=== PATIENT | female | born 1945 | race Caucasian/White ===

== ENCOUNTER → 2017-06-05 | Outpatient (CLI) | payer OTHER ==
[~2017-06-05] MED LIST: CALC500T83 PO; CHOL100027 PO; CYAN500T PO; DILT-121 PO; FSMD/70 PO; GLC500 PO; HYDR5TAB PO; HYDR5TAB57 PO; MULT-506 PO; PANT40TA PO; ROSU5TAB PO; SPIR25TA PO; SYN150 PO
== END | disposition home or self-care (01) ==
LOC: C.RDSM 13:18
PROVIDERS: ATTEND Physical Medicine & Rehabilitation Sports Medicine
DX: Z96.649 Presence of unspecified artificial hip joint (principal)

== ENCOUNTER → 2017-06-08 | Outpatient (CLI) | payer OTHER ==
[2017-06-13 15:49] LABS: ISOSPORA+CYCLOSPORA NOT DETECTED (NOT DETECTED); O&P SOURCE OTHER-STOOL
[2017-06-15 02:17] LABS: REFERENCE QUEST TEST REPORT
== END | disposition home or self-care (01) ==
LOC: C.LAB 20:13
PROVIDERS: ATTEND Family Medicine
DX: R19.7 Diarrhea, unspecified (principal)

== ENCOUNTER → 2017-06-28 | Outpatient (CLI) | payer OTHER ==
[2017-07-03 11:32] LABS: IGA SERUM 115 mg/dL (81-463); TIS TRANS IGA 1 U/mL (<4)
== END | disposition home or self-care (01) ==
LOC: C.LAB1850 12:38
PROVIDERS: ATTEND Internal Medicine
DX: K52.9 Noninfective gastroenteritis and colitis, unspecified (principal)

== ENCOUNTER → 2017-06-29 | Outpatient (CLI) | payer OTHER ==
[2017-06-29 12:27] LABS: BLOOD UREA NITROGEN 12 mg/dl (7-18); BUN/CREATININE RATIO 17.6 (10-20); CALCIUM 9.8 mg/dl (8.5-10.1); CARBON DIOXIDE 27 mmol/L (21-32); CHLORIDE 104 mmol/L (98-107); CHOLESTEROL 157 mg/dl (0-200); CREATININE 0.66 mg/dl (0.60-1.20); GLUCOSE 95 mg/dl (70-99); SODIUM 137 mmol/L (136-145)
[2017-06-29 12:38] LABS: PROLACTIN 7.08 ng/mL
[2017-06-29 12:39] LABS: ESTIMATED AVERAGE GLUCOSE 123 mg/dl; HA1C FLAG Normal (Normal)
[2017-06-29 12:42] LABS: ALB/GLOB RATIO 1.3 (0.9-2); ALKALINE PHOSPHATASE 57 U/L (45-117); ALT/SGPT 25 U/L (12-78); AST/SGOT 15 U/L (15-37); CHOLESTEROL/HDL RATIO 3.4; HDL CHOLESTEROL 46 mg/dl; LDL CHOLESTEROL CALCULATED 84 mg/dl; THYROID STIMULATING HORMONE 0.005 uIu/ml (0.300-4.500); TRIGLYCERIDES 137 mg/dl (0-150); VERY LOW DENSITY LIPOPROT CALC 27 mg/dl
[2017-07-03 18:22] LABS: HUMAN GROWTH HORMONE <0.1 ng/mL (<=7.1); INSULIN LIKE GROWTH FACTOR-I 108 ng/mL (34-245)
== END | disposition home or self-care (01) ==
LOC: C.LAB1850 10:13
PROVIDERS: ATTEND Internal Medicine Endocrinology, Diabetes & Metabolism
DX: Z68.39 Body mass index [BMI] 39.0-39.9, adult (principal); E23.0 Hypopituitarism; E55.9 Vitamin D deficiency, unspecified; E11.9 Type 2 diabetes mellitus without complications; K52.9 Noninfective gastroenteritis and colitis, unspecified

== ENCOUNTER → 2017-07-02 | Outpatient (CLI) | payer OTHER | END | disposition home or self-care (01) | LOC: C.LAB1850 15:17 | PROVIDERS: ATTEND Obstetrics & Gynecology | DX: L65.9 Nonscarring hair loss, unspecified (principal); Z12.4 Encounter for screening for malignant neoplasm of cervix ==

== ENCOUNTER → 2017-07-02 | Outpatient (CLI) | payer OTHER | END | disposition home or self-care (01) | LOC: C.PAPS 09:57 | PROVIDERS: ATTEND Obstetrics & Gynecology | DX: Z12.4 Encounter for screening for malignant neoplasm of cervix (principal) ==

== ENCOUNTER → 2017-07-27 | Outpatient (CLI) | payer OTHER ==
[2017-07-27 09:56] LABS: CREATININE 0.68 mg/dl (0.60-1.20)
== END | disposition home or self-care (01) ==
LOC: C.LAB1850 07:40
PROVIDERS: ATTEND Obstetrics & Gynecology
DX: N64.4 Mastodynia (principal)

== ENCOUNTER → 2017-07-30 | Outpatient (CLI) | payer OTHER ==
[~2017-07-30] MED LIST changes: +GADAVIST IV PRN
--- NOTE | 2017-07-30 11:38 | DIAGNOSTIC IMAGING REPORT ---
MRI OF THE PELVIS COMBO CLINICAL HISTORY: Breast tenderness. Assess ovaries. 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 Intermittent right pelvic pain. Hair loss. COMPARISON STUDY: Pelvic ultrasound from an outside institution dated 07/09/2017. TECHNIQUE: MRI of the pelvis is performed using various T1 and T2-weighted sequences in the axial, sagittal, and coronal planes. Contrast-enhanced sequences are acquired following the IV administration of 8 cc of Gadavist. The examination is degraded by susceptibility artifact from bilateral hip arthroplasties. FINDINGS: The uterus is atrophic and heterogeneous in signal intensity. The uterus measures 5.2 cm in length. The endometrium measures 2 to 3 mm in thickness. The bladder is partially decompressed and normal as imaged. The right ovary is atrophic and seen on axial T2 image #6. The right ovary measures 1.6 x 2.7 cm in axial diameter. A simple appearing cystic focus in the right ovary measures 1.4 cm. The left ovary is likely located along the left iliac vessels but is not definitively visualized, obscured by adjacent bowel loops. No enhancing mass lesion is identified in the pelvis. There is no free fluid in the cul-de-sac. The visualized bowel loops are normal in caliber. Colonic diverticulosis is observed. Bursal fluid is noted in the left iliopsoas region, likely related to the left hip arthroplasty. Benign-appearing cystic structure are seen in the presacral region bilaterally, left larger than right. The lesion on the left measures up to 4.8 cm. There is no associated enhancement on the postcontrast images. No pelvic sidewall or inguinal lymphadenopathy is seen. The regional musculature is atrophic. The origin of the hamstrings tendons are intact. IMPRESSION: 1. The right ovary is atrophic and contains a 1.4 cm benign-appearing cystic focus. 2. The left ovary is not clearly identified. This is likely located along the left iliac vessels but is obscured by adjacent bowel loops. The left ovary is not enlarged. 3. No enhancing pelvic mass lesion is seen. 4. Large perineural cysts are incidentally noted in the presacral region. 5. Colonic diverticulosis without MRI evidence of acute diverticulitis. Electronically signed by: Blaine Hutchins M.D. 07/30/2017 11:36 AM Dictated Date/Time: 07/30/2017 11:19 AM
== END | disposition home or self-care (01) ==
LOC: C.MRI 09:27
PROVIDERS: ATTEND Obstetrics & Gynecology
DX: N64.4 Mastodynia (principal); N83.311 Acquired atrophy of right ovary; K57.30 Diverticulosis of large intestine without perforation or abscess without bleeding; R93.5 Abnormal findings on diagnostic imaging of other abdominal regions, including retroperitoneum

== ENCOUNTER → 2017-07-31 | Outpatient (CLI) | payer OTHER ==
[~2017-07-31] MED LIST changes: -GADAVIST IV PRN
--- NOTE | 2017-07-31 15:45 | MAMMOGRAPHY REPORT ---
BILATERAL DIGITAL SCREENING MAMMOGRAM WITH CAD: 07/31/2017 CLINICAL HISTORY: Routine screening. TECHNIQUE: Bilateral CC and MLO views were obtained. Current study was also evaluated with a Compute r Aided Detection (CAD) system. COMPARISON: Comparison is made to exams dated: 11/04/2014 mammogram, 11/03/2013 mammogram, 10/29/2012 ma mmogram, 10/13/2011 mammogram, 10/12/2010 mammogram, and 10/11/2009 mammogram - [facility]. BREAST COMPOSITION: There are scattered areas of fibroglandular density in both breasts. FINDINGS: There are minimal vascular calcifications in the breasts. A benign rim calcification in t he left breast and a few punctate microcalcifications bilaterally. No suspicious mass, architectural distortion or cluster of suspicious microcalcifications is seen. IMPRESSION: ACR BI-RADS CATEGORY 1: NEGATIVE There is no mammographic evidence of malignancy. A 1 year screening mammogram is recommended. The pa tient will receive written notification of the results. Approximately 10% of breast cancers are not detected with mammography. A negative mammographic report should not delay biopsy if a clinically suggestive mass is present. Inez Christiansen M.D. ay/:07/31/2017 15:13:50 Pot Room Supervisor: Lora Simon RT(R)(M), [facility] letter sent: Normal 1/2 BI-RADS Code: ACR BI-RADS Category 1: Negative
== END | disposition home or self-care (01) ==
LOC: C.MAMM 14:54
PROVIDERS: ATTEND Obstetrics & Gynecology
DX: Z12.31 Encounter for screening mammogram for malignant neoplasm of breast (principal)

== ENCOUNTER 2019-02-05 11:01 | Inpatient (IN) ==
[2019-02-05 12:04] LABS: Hematocrit (blood only) 42.4 % (37-47); Hemoglobin 15.3 g/dL (12.0-16.0); Mean Corpuscular Hgb Conc 36.1 g/dL (32-36); Mean Corpuscular Volume 92.6 fL (80-100); Mean Platelet Volume 10.3 fL (7.4-10.4); Platelet Count 287 K/uL (130-400); RDW Coefficient of Variation 12.4 % (11.5-14.5); Red Blood Count 4.58 M/uL (4.2-5.4); White Blood Count 6.54 K/uL (4.8-10.8)
--- NOTE | 2019-02-05 12:22 | XRay Report ---
XR chest 1V portable CLINICAL HISTORY: Neuro symptoms COMPARISON STUDY: Chest radiograph January 31, 2019. FINDINGS: Lung volumes are normal. No pneumothorax or pleural effusion is noted. There is no consolid ation or evidence for pulmonary edema. Cardiac size is normal. Mediastinal contours are normal. IMPRESSION: No acute cardiopulmonary findings. Electronically signed by: Rob Kraus M.D. 02/05/2019 12:21 PM
[2019-02-05 12:25] LABS: Albumin Level 4.3 gm/dl (3.4-5.0); BUN Creatinine Ratio 12.8 (10-20); Calcium 10.1 mg/dl (8.5-10.1); Creatinine Clr Calc Pharmacy 81.6 ml/min; Est GFR (African American) 100.3; Est GFR (Non-African American) 86.6; Magnesium 1.9 mg/dl (1.8-2.4); Potassium 4.1 mmol/L (3.5-5.1)
[2019-02-05 12:26] LABS: Partial Thromboplastin Ratio 0.8; Partial Thromboplastin Time 22.4 Seconds (21.0-31.0); Prothrombin Time 9.9 Seconds (9.0-12.0)
[2019-02-05 12:27] LABS: iSTAT Creatinine 0.6 mg/dl (0.6-1.3); iSTAT Hemoglobin 14.6 g/dl (12.0-16.0); iSTAT Ionized Calcium 1.24 mmol/l (1.12-1.32); iSTAT Potassium 4.3 mEq/L (3.3-5.0)
[2019-02-05 12:28] LABS: Albumin Globulin Ratio 1.3 (0.9-2); Bilirubin,Total 0.7 mg/dl (0.2-1); Globulin 3.2 gm/dl (2.5-4.0); Total Protein 7.5 gm/dl (6.4-8.2)
[2019-02-05] MEDS ORDERED: OPTIRAY 320 125ml IV PRN (12:42)
--- NOTE | 2019-02-05 12:49 | CT Scan Report ---
CT OF THE HEAD WITHOUT CONTRAST CLINICAL HISTORY: Neuro symptoms [slurred speech. Right-sided weakness. COMPARISON STUDY: No previous studies for comparison. TECHNIQUE: Helical axial images of the head were obtained without IV contrast. Automated exposure con trol was utilized for the study. A dose lowering technique was utilized adhering to the principles o f ALARA. FINDINGS: No acute intracranial hemorrhage, midline shift or mass effect is present. Ventricular syst em is normal. The basilar cisterns are patent. There are no extra-axial collections. Becerra-white diffe rentiation is maintained. There are no findings to suggest acute dural sinus thrombosis or acute terr itorial infarct. There are no significant calvarial abnormalities. IMPRESSION: No acute intracranial findings. Electronically signed by: Rob Kraus M.D. 02/05/2019 12:48 PM
--- NOTE | 2019-02-05 12:53 | CT Scan Report ---
CT ANGIOGRAPHY OF THE NECK WITH CONTRAST CLINICAL HISTORY: Right-sided weakness. Slurred speech. COMPARISON STUDY: No previous studies for comparison. Technique: CT angiography of the carotid and vertebral arteries was obtained using Mobile Armor 320 IV and 3D reconstruction on an independent workstation. NASCET criteria was utilized. Automated exposure c ontrol was utilized for the study. A dose lowering technique was utilized adhering to the principles of ALARA. Findings: Please note that the CTA of the head will be reported separately. There is no cervical lymp hadenopathy. Lung apices are clear. No cervical spine fracture is noted. The bilateral common carotid , cervical internal carotid and vertebral arteries are patent. There is no dissection or stenosis. Th ere is no aneurysm within the neck. IMPRESSION: Unremarkable CTA of the neck. No dissection or stenosis. Electronically signed by: Rob Kraus M.D. 02/05/2019 12:52 PM
[2019-02-05 12:57] LABS: Troponin I < 0.015 ng/ml (0-0.045)
--- NOTE | 2019-02-05 13:00 | CT Scan Report ---
CT angio head w con CLINICAL HISTORY: Right-sided weakness. Slurred speech. Possible acute stroke. TECHNIQUE: CT angiography of the head was performed in a dynamic helical fashion during intravenous a dministration of 120 cc of Optiray 320. MIP imaging was performed. A dose lowering technique was util ized adhering to the principles of ALARA. CT DOSE: 1137.04 mGy.cm COMPARISON STUDY: No previous studies for comparison. FINDINGS: There is no evidence for major intracranial branch occlusion. There is no evidence for katie r intracranial stenosis. There is a 6 mm distal right MCA aneurysm, at the level of the sylvian fissu re. The dural venous sinuses appear patent. IMPRESSION: 1. 6 mm distal right MCA aneurysm at the level of the sylvian fissure Electronically signed by: Phillip Ospina M.D. 02/05/2019 12:59 PM
[2019-02-05 13:14] LABS: T4 Free Thyroxine 1.52 ng/dl (0.8-1.6)
[2019-02-05] MEDS ORDERED: DEXTROSE 50% 50 ML SYRINGE IV PRN (15:54)
[2019-02-05] MEDS ORDERED: GLUCOSE 40% GEL 15 GM TUBE PO PRN (15:54)
[2019-02-05] MEDS ORDERED: PHARMACIST DISCHARGE MED REC CONSULT PRN (15:54)
[2019-02-05] MEDS ORDERED: CARBOHYDRATES FOR HYPOGLYCEMIA PO PRN (15:54)
[2019-02-05] MEDS ORDERED: ONDANSETRON INJ 2 MG/ML 2 ML VIAL IV PRN (15:54)
[2019-02-05] MEDS ORDERED: GLUCAGON FOR INJ 1 MG VIAL SQ PRN (15:54)
[2019-02-05] MEDS ORDERED: GLUCOSE 10 TABS/TUBE PO PRN (15:54)
[2019-02-05] MEDS ORDERED: INSULIN ASPART 100 UNITS/ML 3 ML PEN SC SCH (16:30)
[2019-02-05] MEDS ORDERED: Nursing to Pharmacy Communication ONE (16:52)
--- NOTE | 2019-02-05 18:09 | Magnetic Resonance Report ---
MR brain wo con HISTORY: Mental status change Stroke TECHNIQUE: Multiplanar multisequence MRI of the brain was performed without the use of contrast. COMPARISON STUDY: None. FINDINGS: Small focus of increased signal involving the left yarelis. Appears represent a subacute infar ct. Findings of moderate cerebellar as well as cerebral atrophy. Moderate chronic small vessel changes th roughout. 6 mm aneurysm base of the right sylvian fissure involving the right middle cerebral arteria l distribution. Ventricular system is midline. No midline shift. IMPRESSION: 1. Acute/subacute infarct left yarelis. 2. Age-related chronic small vessel change. 3. 6 mm aneurysm right middle cerebral arterial distribution base of of the sylvian fissure. The above report was generated using voice recognition software. It may contain grammatical, syntax or spelling errors. Electronically signed by: Duran Medrano M.D. 02/05/2019 6:06 PM
[2019-02-05] MEDS: HYDROCORTISONE 10 MG TAB PO SCH (18:20)
[2019-02-05] MEDS: CLOPIDOGREL BISULFATE 75 MG TAB PO SCH (18:20)
[2019-02-05] MEDS: ASPIRIN 81 MG CHEW PO SCH (18:20)
[2019-02-05] MEDS: INSULIN ASPART 100 UNITS/ML 3 ML PEN SC SCH ×2 (18:30→23:39)
--- NOTE | 2019-02-05 18:41 | History & Physical Report ---
Date of Service February 05, 2019 Assessment & Plan (1) CVA (cerebral vascular accident): MRI brain on 02/05 showed acute/subacute left yarelis CVA. No prior strokes. - Neurology consult - Echo - Tele - ASA/Plavix & statin - Lipid panel and A1c in the AM - PT/OT/MAPPING ANALYST - NPO until seen by speech given her dysarthria - Permissive hypertension (2) Chest pressure: Reports chest pressure since this morning. EKG shows septal infarct pattern, but this appears stable from 01/31/2019. First troponin negative. In 05/2009, she had a heart cath in the setting of ST elevations that was clean. It was thought it might be a vasospasm event. Reports STEMI in the setting of a prior dobutamine stress test. - Trend troponins and EKGs - Continue telemetry (3) Brain aneurysm: CTA head on 02/05 showed 6 mm distal right MCA aneurysm at the level of the sylvian fissure. No indication on any imaging that this had any rupture or bleeding. - Neurology consult - May need eventual neurosurgery evaluation (4) Adrenal insufficiency: Prior pituitary surgery in 1984 due to pituitary tumor. Follows with endocrinology as outpatient. - Continue hydrocortisone 10mg PO BID (5) Hypothyroid: Due to pitiutary insufficiency. TSH is (as expected) undetectable. FT4/FT3 are 1.5 & 3.1 respectively which is within normal limits. - Continue levothyroxine 150 mcg PO daily (6) Diabetes: A1c was 6.4% in 07/2018. Only on metformin as an outpatient. - Sliding scale insulin - A1c in the AM (7) Hypertension: On diltiazem and spironolactone as outpatient. Spironolactone may be for some of her Na+/K+ regulation, but she is not sure. - Odd HTN regimen given neither of these is first-line HTN therapy. - Will allow permissive HTN in the first 24-48 hour period per neurology - Adjust BP meds as needed (8) Hyperlipidemia: Only on rosuvastatin 5mg weekly. Would benefit from high-intensity statin therapy. 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 She noted difficulty walking on Sunday, and presented to the emergency department. She was diagnosed with low blood pressure secondary to missing her hydrocortisone for her hypopituitarism. She was discharged on Sunday, and the symptoms resolved. However this morning at 8 AM, she noted that she was having difficulty speaking, discoordination of her right upper extremity, and again having difficulty walking due to RLE weakness. She presented to the emergency department, but was outside of the TPA window. At present she continues to endorse dysarthria, but no dysphasia. No facial droop. Discoordination and weakness of the right upper extremity, and RLE. She also notes a slight chest pressure that has been ongoing since this morning. Reports it is like a "small child" is sitting on her chest. No fevers, chills, sweats, shortness of breath, abdominal pain, nausea, vomiting, or other symptoms. Allergies Allergy/AdvReac Type Severity Reaction Status Date / Time Sulfa (Sulfonamide Allergy Unknown RASH Verified 02/05/19 12:28 Antibiotics) dobutamine AdvReac Severe ST Verified 02/05/19 12:28 ELEVATION, CHEST PAIN Home Medications Home Medications Medication Instructions Recorded Confirmed Type alendronate 70 mg PO WK 01/31/19 02/05/19 History diltiazem HCl [Tiazac] 300 mg PO DAILY 01/31/19 02/05/19 History hydrocortisone 10 mg PO BID 01/31/19 02/05/19 History levothyroxine [Synthroid] 150 mcg PO DAILY 01/31/19 02/05/19 History metformin 1,000 mg PO BID 01/31/19 02/05/19 History pantoprazole 40 mg PO DAILY 01/31/19 02/05/19 History rosuvastatin 5 mg PO WK 01/31/19 02/05/19 History spironolactone 25 mg PO QPM 01/31/19 02/05/19 History spironolactone 50 mg PO QAM 01/31/19 02/05/19 History Past Med/Surg History Medical History Adrenal insufficiency CVA (cerebral vascular accident) Diabetes Hyperlipidemia Hypertension Hypothyroid No significant past medical history Surgical History History of hypophysectomy Family History Other Family history non-contributory Social History Preferred Language: Guyanese Communication Ability: Effective Hospice Fellow Required: No Beliefs That Will Affect Care: None marital status: Current Living Situation: Spouse current occupational status: retired Other Information That Helps Us Care for You: No Feels Safe at Home: Yes Safety Concerns: Feels Safe At This Time Smoking Status: Never smoker Do You Dip or Chew Tobacco: No Second Hand Exposure: No Tobacco Cessation Education Requested by Patient: No Hx Alcohol Use: No Hx Substance Use: No Review of Systems Const: Constitutional: no fever, no chills and no sweats Eyes: Eyes: no diplopia ENMT: Ear, Nose, Mouth, Throat: no ear trauma, no nasal discharge and no dental pain Resp: Respiratory: no cough, no chest congestion and no dyspnea Cardio: Cardiovascular: + chest pain and + chest pain at rest; no dyspnea, no dyspnea on exertion, no palpitations and no syncope GI: Gastrointestinal: no abdominal pain, no belching, no constipation, no diarrhea/loose stools, no blood in stools and no melena MS: Musculoskeletal: no back pain, no joint pain and no muscle weakness Integ: Integumentary: no rash, no skin ulcer and no erythema Neuro: Neurologic: + paralysis (Discoordination); no generalized weakness, no loss of sensation, no numbness and no paresthesia Psych: Psychiatric: no depression and no anxiety Endo: Endocrine: no fatigue, no polydipsia and no polyphagia Physical Exam Vital Signs (Past 24 Hours): Last Vital Signs Temp 36.4 C L 02/05/19 15:33 Pulse 46 L 02/05/19 15:33 Resp 18 02/05/19 15:33 BP 162/73 H 02/05/19 15:33 Pulse Ox 100 02/05/19 15:33 Constitutional: WD/WN, vitals as above Eyes: EOM intact bilaterally; no conjunctival abnormality ENMT: external ear and nose normal, oropharynx normal Neck: trachea midline, no thyromegaly normal visual inspection Respiratory: normal respiratory effort, lungs clear to auscultation no respiratory distress Cardiovascular: RRR, no murmur, no edema Gastrointestinal (Abdomen): Inspection/Auscultation: abdomen normal to inspection; abdomen not distended Musculoskeletal: no cyanosis or clubbing, extremities motor strength 5/5 Skin: no rashes, warm and dry Neurologic: moves all extremities, + focal motor deficit (Right arm and leg) and awake Psychiatric: Orientation: alert, oriented to person and cooperative
--- NOTE | 2019-02-05 20:09 | Emergency Department Note ---
Entered by Shawnee Lao acting as a scribe for History of Present Illness General Chief complaint: Neuro Symptoms/Deficit Stated complaint: WEAKNESS,CANT WALK, Source: patient History of Present Illness Onset (ago): week(s) 1 Location: head Pain Consistency: + other (worsening) Quality: + other (neuro symptoms) Relieved By: not by medication (steroids, Motrin) Associated symptoms: + denies other symptoms (pain, trauma), + weakness and + other (fatigue, slurred speech, difficulty walking); no fever/chills (fever) and no headaches The patient is a 74 year old female who presents to the Emergency Room with complaints of worsening neuro symptoms starting a week ago. 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 She reports that for a week she has had right sided weakness and fatigue. She states that she came here last week and had her steroids increased, but it didnt offer much relief. The patient states that she woke up 4 hours ago and her speech was slurred. She states that her weakness in her right arm and leg was worse than before and she found it difficult to walk. She notes that she took 2 Motrin before coming in with no relief. The patient denies headache, pain, fever, and trauma. Home Medications Home Medications Medication Instructions Recorded Confirmed Type alendronate 70 mg PO WK 01/31/19 02/05/19 History diltiazem HCl [Tiazac] 300 mg PO DAILY 01/31/19 02/05/19 History hydrocortisone 10 mg PO BID 01/31/19 02/05/19 History levothyroxine [Synthroid] 150 mcg PO DAILY 01/31/19 02/05/19 History metformin 1,000 mg PO BID 01/31/19 02/05/19 History pantoprazole 40 mg PO DAILY 01/31/19 02/05/19 History rosuvastatin 5 mg PO WK 01/31/19 02/05/19 History spironolactone 25 mg PO QPM 01/31/19 02/05/19 History spironolactone 50 mg PO QAM 01/31/19 02/05/19 History Allergies Allergy/AdvReac Type Severity Reaction Status Date / Time Sulfa (Sulfonamide Allergy Unknown RASH Verified 02/05/19 12:28 Antibiotics) dobutamine AdvReac Severe ST Verified 02/05/19 12:28 ELEVATION, CHEST PAIN Past Med/Surg History Medical History Adrenal insufficiency CVA (cerebral vascular accident) Diabetes Hyperlipidemia Hypertension Hypothyroid No significant past medical history Surgical History History of hypophysectomy Family History Other Family history non-contributory Social History Preferred Language: Urdu Communication Ability: Effective Infrastructure Manager Required: No Beliefs That Will Affect Care: None marital status: Current Living Situation: Spouse current occupational status: retired Other Information That Helps Us Care for You: No Feels Safe at Home: Yes Safety Concerns: Feels Safe At This Time Smoking Status: Never smoker Do You Dip or Chew Tobacco: No Second Hand Exposure: No Tobacco Cessation Education Requested by Patient: No Hx Alcohol Use: No Hx Substance Use: No Review of Systems See HPI for pertinent positives & negatives. and A total of 10 systems reviewed and were otherwise negative Physical Exam Vital Signs Vital Signs - 24 hr 02/05/19 11:07 02/05/19 11:39 02/05/19 12:03 Temperature 36.8 C Temperature Source Oral Sepsis Recent Fever Within 48 Hours No Sepsis New/Unexplained Change in Mental Status No Sepsis Action Taken by Nursing No Action Required Pulse Rate 75 65 Pulse Rate [Right Finger] Pulse Rate from SpO2 Sensor Respiratory Rate 16 24 Respiratory Effort / Characteristics Respiratory Depth Respiratory Pattern Blood Pressure 173/80 H Blood Pressure [Left Arm] Blood Pressure Mean 111 Blood Pressure Mean [Left Arm] Blood Pressure Position [Left Arm] Pulse Oximetry 97 98 96 Oxygen Delivery Method Room Air Room Air Room Air 02/05/19 12:38 02/05/19 12:39 02/05/19 13:00 Temperature Temperature Source Sepsis Recent Fever Within 48 Hours Sepsis New/Unexplained Change in Mental Status Sepsis Action Taken by Nursing Pulse Rate 60 56 L 52 L Pulse Rate [Right Finger] Pulse Rate from SpO2 Sensor 61 58 L 52 L Respiratory Rate 22 15 15 Respiratory Effort / Characteristics Respiratory Depth Respiratory Pattern Blood Pressure 144/75 H Blood Pressure [Left Arm] Blood Pressure Mean 98 Blood Pressure Mean [Left Arm] Blood Pressure Position [Left Arm] Pulse Oximetry 97 97 96 Oxygen Delivery Method Room Air Room Air Room Air 02/05/19 13:32 02/05/19 14:00 02/05/19 14:16 Temperature Temperature Source Sepsis Recent Fever Within 48 Hours Sepsis New/Unexplained Change in Mental Status Sepsis Action Taken by Nursing Pulse Rate 64 50 L 49 L Pulse Rate [Right Finger] Pulse Rate from SpO2 Sensor 62 50 L 49 L Respiratory Rate 18 18 19 Respiratory Effort / Characteristics Respiratory Depth Respiratory Pattern Blood Pressure 152/84 H 152/84 H Blood Pressure [Left Arm] Blood Pressure Mean 106 106 Blood Pressure Mean [Left Arm] Blood Pressure Position [Left Arm] Pulse Oximetry 95 96 95 Oxygen Delivery Method Room Air Room Air Room Air 02/05/19 14:30 02/05/19 14:31 02/05/19 15:33 Temperature 36.4 C L Temperature Source Oral Sepsis Recent Fever Within 48 Hours Sepsis New/Unexplained Change in Mental Status Sepsis Action Taken by Nursing Pulse Rate 43 L 44 L Pulse Rate [Right Finger] 46 L Pulse Rate from SpO2 Sensor 43 L 44 L Respiratory Rate 17 19 18 Respiratory Effort / Characteristics Non-Labored Spontaneous Respiratory Depth Normal Respiratory Pattern Regular Blood Pressure 141/79 H Blood Pressure [Left Arm] 162/73 H Blood Pressure Mean 99 Blood Pressure Mean [Left Arm] 102 Blood Pressure Position [Left Arm] Lying Pulse Oximetry 93 95 100 Oxygen Delivery Method Room Air Room Air Room Air 02/05/19 16:30 02/05/19 19:59 Temperature 36.4 C L Temperature Source Oral Sepsis Recent Fever Within 48 Hours Sepsis New/Unexplained Change in Mental Status Sepsis Action Taken by Nursing Pulse Rate 51 L Pulse Rate [Right Finger] 53 L Pulse Rate from SpO2 Sensor Respiratory Rate 18 Respiratory Effort / Characteristics Respiratory Depth Respiratory Pattern Blood Pressure Blood Pressure [Left Arm] 173/81 H Blood Pressure Mean Blood Pressure Mean [Left Arm] 111 Blood Pressure Position [Left Arm] Lying Pulse Oximetry 95 Oxygen Delivery Method Room Air GENERAL: Awake, alert, well-appearing, in no distress HENT: Normocephalic, atraumatic. Oropharynx unremarkable. EYES: Normal conjunctiva. Sclera non-icteric. PERRL. Extraocular motions intact. NECK: Supple. No nuchal rigidity. RESPIRATORY: Clear to auscultation. No wheezes. Normal respiratory effort. CARDIAC: Normal rate. Normal rhythm. Extremities warm and well perfused. GI: Soft, non-distended. No tenderness to palpation. RECTAL: Deferred. MUSCULOSKELETAL: Atraumatic. Chest examination reveals no tenderness. LOWER EXTREMITIES: Calves are equal size bilaterally and non-tender. No edema NEURO: No sensory noted. No facial droop. Slurring of speech. Subtle drift of the right lower extremity. SKIN: Warm and dry. No rash or jaundice noted. Course 1158: The patient was evaluated in room C11B, and a complete history and physical examination were performed. 1317: I reevaluated the patient and updated her on her test results. I discussed the treatment plan with her. She verbally agrees and understands. 1321: I reviewed the patient's case with Dr. Kimberly TILLEY Hospitalist. He will evaluate the patient for further management. Consultations Consultation #1: I reviewed the patient's case with Dr. Kibmerly TILLEY [facility] ist. He will evaluate the patient for further management. Time: 13:21 Administered Medications Aspirin (Aspirin Chew) 81 mg PO DAILY [facility] Stop: 03/07/19 16:14 Last Admin: 02/05/19 18:20 Dose: 81 mg Documented by: [id number] Clopidogrel Bisulfate (Plavix) 75 mg PO QAM [facility] Stop: 03/07/19 16:09 Last Admin: 02/05/19 18:20 Dose: 75 mg Documented by: [id number] Hydrocortisone (Cortef) 10 mg PO BID17 [facility] Stop: 03/07/19 16:59 Last Admin: 02/05/19 18:20 Dose: 10 mg Documented by: [id number] Insulin Aspart (Novolog Flexpen) 0 units SC Q6 [facility] Stop: 03/07/19 16:29 Last Admin: 02/05/19 18:30 Dose: Not Given Documented by: [id number] Cosigned by: [id number] Discontinued Medications Insulin Aspart (Novolog Flexpen) 0 units SC ACHS [facility] Stop: 03/07/19 16:29 Last Admin: 02/05/19 18:28 Dose: Not Given Documented by: [id number] Cosigned by: [id number] Ioversol (Optiray 320 125ml) 120 ml IV ONCE PRN PRN Reason: Interaction Checking Stop: 02/09/19 12:41 Last Admin: 02/05/19 12:43 Dose: 120 ml Documented by: [id number] Medical Decision Making Differential Diagnosis Differential includes acute coronary syndrome, myocardial infarction, CVA, TIA, anemia, infection, pneumonia, UTI, pyelonephritis, poor nutrition, dehydration, electrolyte disturbance,hypoglycemia. Medical Records Attestation: I reviewed the patient's medical records. Home Medications Current Medication List: was personally reviewed by me Laboratory Data Attestation: I reviewed the patient's lab results. Result diagrams: 02/05/19 11:49 02/05/19 11:49 Lab Results 02/05/19 02/05/19 02/05/19 Range/Units 11:49 11:49 11:49 WBC 6.54 (4.8-10.8) K/uL RBC 4.58 (4.2-5.4) M/uL Hgb 15.3 (12.0-16.0) g/dL POC Hgb (12.0-16.0) g/dl Hct 42.4 (37-47) % POC Hct (37-47) % MCV 92.6 (80-100) fL MCH 33.4 (25-34) pg MCHC 36.1 H (32-36) g/dL RDW Std Deviation 42.0 (36.4-46.3) fL RDW Coeff of Maureen 12.4 (11.5-14.5) % Plt Count 287 (130-400) K/uL MPV 10.3 (7.4-10.4) fL PT 9.9 (9.0-12.0) Seconds INR 1.0 (0.9-1.1) APTT 22.4 (21.0-31.0) Seconds PTT Ratio 0.8 POC Sodium (135-144) mEq/L Sodium 137 (136-145) mmol/L POC Potassium (3.3-5.0) mEq/L Potassium 4.1 (3.5-5.1) mmol/L POC Chloride (101-112) mEq/L Chloride 102 (98-107) mmol/L Carbon Dioxide 27 (21-32) mmol/L POC Total CO2 (24-31) mEq/l Anion Gap 8.0 (3-11) POC Anion Gap (16-25) mmol/L POC BUN (7-18) mg/dl BUN 9 (7-18) mg/dl Creatinine 0.70 (0.6-1.2) mg/dl POC Creatinine (0.6-1.3) mg/dl Est Cr Clr Drug Dosing 81.6 ml/min Est GFR ( Amer) 100.3 Est GFR (Non-Af Amer) 86.6 BUN/Creatinine Ratio 12.8 (10-20) Glucose 105 H (70-99) mg/dl POC Glucose (other) (70-99) mg/dl Calcium 10.1 (8.5-10.1) mg/dl POC Ioniz Calcium Caron (1.12-1.32) mmol/l Magnesium 1.9 (1.8-2.4) mg/dl Total Bilirubin 0.7 (0.2-1) mg/dl AST 15 (15-37) U/L ALT 32 (12-78) U/L Alkaline Phosphatase 72 (45-117) U/L Troponin I (0-0.045) ng/ml Total Protein 7.5 (6.4-8.2) gm/dl Albumin 4.3 (3.4-5.0) gm/dl Globulin 3.2 (2.5-4.0) gm/dl Albumin/Globulin Ratio 1.3 (0.9-2) TSH (0.300-4.500) uIu/ml Free T4 (0.8-1.6) ng/dl Free T3 (2.3-4.2) pg/ml 02/05/19 02/05/19 02/05/19 Range/Units 11:49 11:49 12:15 WBC (4.8-10.8) K/uL RBC (4.2-5.4) M/uL Hgb (12.0-16.0) g/dL POC Hgb 14.6 (12.0-16.0) g/dl Hct (37-47) % POC Hct 43 (37-47) % MCV (80-100) fL MCH (25-34) pg MCHC (32-36) g/dL RDW Std Deviation (36.4-46.3) fL RDW Coeff of Maureen (11.5-14.5) % Plt Count (130-400) K/uL MPV (7.4-10.4) fL PT (9.0-12.0) Seconds INR (0.9-1.1) APTT (21.0-31.0) Seconds PTT Ratio POC Sodium 138 (135-144) mEq/L Sodium (136-145) mmol/L POC Potassium 4.3 (3.3-5.0) mEq/L Potassium (3.5-5.1) mmol/L POC Chloride 100 L (101-112) mEq/L Chloride (98-107) mmol/L Carbon Dioxide (21-32) mmol/L POC Total CO2 26 (24-31) mEq/l Anion Gap (3-11) POC Anion Gap 17.0 (16-25) mmol/L POC BUN 8 (7-18) mg/dl BUN (7-18) mg/dl Creatinine (0.6-1.2) mg/dl POC Creatinine 0.6 (0.6-1.3) mg/dl Est Cr Clr Drug Dosing ml/min Est GFR ( Amer) Est GFR (Non-Af Amer) BUN/Creatinine Ratio (10-20) Glucose (70-99) mg/dl POC Glucose (other) 103 H (70-99) mg/dl Calcium (8.5-10.1) mg/dl POC Ioniz Calcium Caron 1.24 (1.12-1.32) mmol/l Magnesium (1.8-2.4) mg/dl Total Bilirubin (0.2-1) mg/dl AST (15-37) U/L ALT (12-78) U/L Alkaline Phosphatase (45-117) U/L Troponin I < 0.015 (0-0.045) ng/ml Total Protein (6.4-8.2) gm/dl Albumin (3.4-5.0) gm/dl Globulin (2.5-4.0) gm/dl Albumin/Globulin Ratio (0.9-2) TSH < 0.005 L Cancelled (0.300-4.500) uIu/ml Free T4 1.52 (0.8-1.6) ng/dl Free T3 (2.3-4.2) pg/ml 02/05/19 02/05/19 Range/Units 14:39 18:58 WBC (4.8-10.8) K/uL RBC (4.2-5.4) M/uL Hgb (12.0-16.0) g/dL POC Hgb (12.0-16.0) g/dl Hct (37-47) % POC Hct (37-47) % MCV (80-100) fL MCH (25-34) pg MCHC (32-36) g/dL RDW Std Deviation (36.4-46.3) fL RDW Coeff of Maureen (11.5-14.5) % Plt Count (130-400) K/uL MPV (7.4-10.4) fL PT (9.0-12.0) Seconds INR (0.9-1.1) APTT (21.0-31.0) Seconds PTT Ratio POC Sodium (135-144) mEq/L Sodium (136-145) mmol/L POC Potassium (3.3-5.0) mEq/L Potassium (3.5-5.1) mmol/L POC Chloride (101-112) mEq/L Chloride (98-107) mmol/L Carbon Dioxide (21-32) mmol/L POC Total CO2 (24-31) mEq/l Anion Gap (3-11) POC Anion Gap (16-25) mmol/L POC BUN (7-18) mg/dl BUN (7-18) mg/dl Creatinine (0.6-1.2) mg/dl POC Creatinine (0.6-1.3) mg/dl Est Cr Clr Drug Dosing ml/min Est GFR ( Amer) Est GFR (Non-Af Amer) BUN/Creatinine Ratio (10-20) Glucose (70-99) mg/dl POC Glucose (other) (70-99) mg/dl Calcium (8.5-10.1) mg/dl POC Ioniz Calcium Caron (1.12-1.32) mmol/l Magnesium (1.8-2.4) mg/dl Total Bilirubin (0.2-1) mg/dl AST (15-37) U/L ALT (12-78) U/L Alkaline Phosphatase (45-117) U/L Troponin I < 0.015 (0-0.045) ng/ml Total Protein (6.4-8.2) gm/dl Albumin (3.4-5.0) gm/dl Globulin (2.5-4.0) gm/dl Albumin/Globulin Ratio (0.9-2) TSH (0.300-4.500) uIu/ml Free T4 (0.8-1.6) ng/dl Free T3 3.09 (2.3-4.2) pg/ml Imaging Data Radiologist's Impression: Radiology results as stated below per my review and the radiologist's interpretation: XR chest 1V portable CLINICAL HISTORY: Neuro symptoms COMPARISON STUDY: Chest radiograph January 31, 2019. FINDINGS: Lung volumes are normal. No pneumothorax or pleural effusion is noted. There is no consolidation or evidence for pulmonary edema. Cardiac size is normal. Mediastinal contours are normal. IMPRESSION: No acute cardiopulmonary findings. Electronically signed by: Rob Kraus M.D. 02/05/2019 12:[address] OF THE HEAD WITHOUT CONTRAST CLINICAL HISTORY: Neuro symptoms [slurred speech. Right-sided weakness. COMPARISON STUDY: No previous studies for comparison. TECHNIQUE: Helical axial images of the head were obtained without IV contrast. Automated exposure control was utilized for the study. A dose lowering technique was utilized adhering to the principles of ALARA. FINDINGS: No acute intracranial hemorrhage, midline shift or mass effect is present. Ventricular system is normal. The basilar cisterns are patent. There are no extra-axial collections. Becerra-white differentiation is maintained. There are no findings to suggest acute dural sinus thrombosis or acute territorial infarct. There are no significant calvarial abnormalities. IMPRESSION: No acute intracranial findings. Electronically signed by: Rob Kraus M.D. 02/05/2019 12:[address] angio head w con CLINICAL HISTORY: Right-sided weakness. Slurred speech. Possible acute stroke. TECHNIQUE: CT angiography of the head was performed in a dynamic helical fashion during intravenous administration of 120 cc of Optiray 320. MIP imaging was performed. A dose lowering technique was utilized adhering to the principles of ALARA. CT DOSE: 1137.04 mGy.cm COMPARISON STUDY: No previous studies for comparison. FINDINGS: There is no evidence for major intracranial branch occlusion. There is no evidence for major intracranial stenosis. There is a 6 mm distal right MCA aneurysm, at the level of the sylvian fissure. The dural venous sinuses appear patent. IMPRESSION: 1. 6 mm distal right MCA aneurysm at the level of the sylvian fissure Electronically signed by: Phillip Ospina M.D. 02/05/2019 12:[address] ANGIOGRAPHY OF THE NECK WITH CONTRAST CLINICAL HISTORY: Right-sided weakness. Slurred speech. COMPARISON STUDY: No previous studies for comparison. Technique: CT angiography of the carotid and vertebral arteries was obtained using Optiray 320 IV and 3D reconstruction on an independent workstation. NASCET criteria was utilized. Automated exposure control was utilized for the study. A dose lowering technique was utilized adhering to the principles of ALARA. Findings: Please note that the CTA of the head will be reported separately. There is no cervical lymphadenopathy. Lung apices are clear. No cervical spine fracture is noted. The bilateral common carotid, cervical internal carotid and vertebral arteries are patent. There is no dissection or stenosis. There is no aneurysm within the neck. IMPRESSION: Unremarkable CTA of the neck. No dissection or stenosis. Electronically signed by: Rob Kraus M.D. 02/05/2019 12:52 PM ECG Data Attestation: I personally reviewed and interpreted this ECG as follows: Indication: weakness Rate (beats per minute): 64 Rhythm: normal sinus Findings: + nonspecific-ST abn; no PVC and no ST elevation Blood Pressure Blood Pressure Findings: Elevated blood pressure Blood Pressure Disposition: further management by hospitalist DEEPTHI Narrative Patient is a 74-year-old female with a history of adrenal insufficiency on hydrocortisone status post pituitary tumor resection presenting today with reports of right-sided weakness beginning last week. Denies any pain or headache. Patient is having some slurring of speech an this morning.. Not on anticoagulation. Has difficulty explaining symptomatologies. No real facial droop but is slurring her speech. Some subtle drift of the right lower extremity. Concern for possible subtle small stroke. Outside of TPA window. CT the head was completed along with vessel imaging. Basic labs are completing and EKG. lab findings do show a low TSH with additional thyroid studies pending. Unsure this is the true etiology of her symptoms. CT head is unremarkable. CTA does show a 6 mm aneurysm. Did make patient aware of this. Believe is incidental. Again the patient not a TPA candidate. Concerned she may have either a small stroke or possible some issue related to prior pituitary tumor. Will need MRI. Given the Felty walking slurred speech with this persisting discussed with hospitalist for admission. Impression & Plan Slurred speech, Right sided weakness Discharge Plan Visit Data *Final* Discharge Date/Time: 02/05/19 14:59 Chief Complaint: Neuro Symptoms/Deficit Stated Complaint: WEAKNESS,CANT WALK, ED Provider: Julio Cesar Stafford Discharge Problem: Slurred speech, Right sided weakness Patient Disposition: Admitted As Inpatient Discharge Instructions Interventions: ED Discharge Assessment Last Done: 02/05/19 14:59 The scribe's documentation has been prepared under my direction and personally reviewed by me in its entirety. I confirm that the note above accurately reflects all work, treatment, procedures, and medical decision making performed by me.
[2019-02-05] MEDS: SPIRONOLACTONE 25 MG TAB PO SCH (21:37)
[2019-02-06 05:41] LABS: Hematocrit (blood only) 40.5 % (37-47); Mean Corpuscular Hgb Conc 34.6 g/dL (32-36); Mean Corpuscular Volume 92.3 fL (80-100); Mean Platelet Volume 10.2 fL (7.4-10.4); Platelet Count 296 K/uL (130-400); RDW Coefficient of Variation 12.2 % (11.5-14.5); RDW Standard Deviation 41.4 fL (36.4-46.3); Red Blood Count 4.39 M/uL (4.2-5.4); White Blood Count 7.33 K/uL (4.8-10.8)
[2019-02-06] MEDS: INSULIN ASPART 100 UNITS/ML 3 ML PEN SC SCH ×4 (05:58→22:01)
[2019-02-06] MEDS: LEVOTHYROXINE SODIUM 150 MCG TABLET PO SCH (05:59)
[2019-02-06 06:05] LABS: Blood Urea Nitrogen 10 mg/dl (7-18); Calcium 9.2 mg/dl (8.5-10.1); Carbon Dioxide 30 mmol/L (21-32); Chloride 103 mmol/L (98-107); Est GFR (African American) 101.3; Est GFR (Non-African American) 87.4; Glucose 106 mg/dl (70-99); Magnesium 1.8 mg/dl (1.8-2.4); Potassium 3.7 mmol/L (3.5-5.1); Sodium 138 mmol/L (136-145)
[2019-02-06 06:10] LABS: Chol HDL Ratio 4; Cholesterol 167 mg/dl (0-200); HDL Cholesterol 44 mg/dl; LDL Cholesterol Calculated 90 mg/dl; Triglycerides 167 mg/dl (0-150); Troponin I < 0.015 ng/ml (0-0.045); VLDL Cholesterol 33 mg/dl
[2019-02-06 06:11] LABS: Estimated Average Glucose 134 mg/dl; Hemoglobin A1C 6.3 % (4.5-5.6)
[2019-02-06] MEDS: ASPIRIN 81 MG CHEW PO SCH (08:28)
[2019-02-06] MEDS: HYDROCORTISONE 10 MG TAB PO SCH ×2 (08:30→17:01)
[2019-02-06] MEDS: PANTOprazole 40 MG TAB PO SCH (08:30)
[2019-02-06] MEDS: CLOPIDOGREL BISULFATE 75 MG TAB PO SCH (08:30)
[2019-02-06] MEDS: ENOXAPARIN INJ 40 MG/0.4 ML SYR SQ SCH (08:36)
[2019-02-06] MEDS ORDERED: dilTIAZem ER 120 MG CAPCR PO SCH (09:00)
[2019-02-06] MEDS ORDERED: dilTIAZem ER 180 MG CAPCR PO SCH (09:00)
[2019-02-06] MEDS: SPIRONOLACTONE 25 MG TAB PO SCH ×2 (09:00→21:08)
[2019-02-06] MEDS ORDERED: SODIUM CHLORIDE 0.9% 1000ML 500 ML IV ONE (09:28)
--- NOTE | 2019-02-06 09:36 | Neurology Consultation ---
Date of Consultation February 06, 2019 Assessment & Plan (1) Acute CVA (cerebrovascular accident): This is a 74-year-old right-handed female who presents with subacute right pontine ischemic stroke. Residual neurological deficits include severe right hemiplegia, minimal right sensory symptoms, mild right lower facial droop, mild to moderate dysarthria and dysphasia. Stroke risk factors include diabetes, hypertension, dyslipidemia (though all of these recently seem to have been under control). Worsening of right hemiplegia overnight may indicate expansion or completion of initial stroke. Recommendations: Recommend IV fluid bolus and IV maintenance fluids while n.p.o. Patient does no t significantly improve or she worsens after IV fluid bolus, would recommend repeat MRI of the brain to see if there is any additional strokes. Avoid dehydration and hypotension as this could extend her stroke. Follow-up echocardiogram results to evaluate for cardioembolic sources for stroke. Agree with aspirin and Plavix therapy. Aspirin can be discontinued within the next month. May have to discontinue aspirin sooner if patient continues to have GI symptoms on aspirin. I have changed her statin to pravastatin due to her history of myalgias worse than previous statins. Recommend 30-day cardiac event monitor as an outpatient for further evaluation of possible cardioembolic sources for stroke Recommend following up nonurgently as an outpatient with neurosurgery for further evaluation of incidental aneurysm Blood pressure recommendations while in hospital 175/95-150/80 For the first month after hospital discharge, blood pressure recommendations 150/90-130/80. After the first month, blood pressure recommendations 130/80-110/70 Follow-up PT/OT and speech recommendations for discharge planning Neurological recommendations for stroke risk factor modifications: Total cholesterol goal 100-200, and LDL goal less than 100 Hemoglobin A1c goal less than 7 Encourage regular cardiovascular exercise at least 30 minutes 3 times per week Hospital Follow-up in neurology clinic in 1 month after discharge. If there is any questions or concerns, feel free to call/page me. History of Present Illness Reason for Consultation: Stroke symptoms Attending Physician: Remi Galicia MD History of Present Illness This is a 74-year-old right-handed female who presents with acute stroke symptoms. She woke up yesterday morning with right-sided weakness and slurred speech. Never had these symptoms before. Does not take an antiplatelet on a regular basis. Takes statin medication weekly because she has had myalgias with statins in the past. She reports that her endocrine doctor has tried multiple statins in the past with similar results. She does not know if she has been tried on pravastatin. Reviewed her outpatient chart but unfortunately did not have information on what statin she is tried previously. She has tried niacin in the past. Apparently her right hemiplegia worsened overnight. In addition has had decreased dysphasia. No new symptoms with her vision. Mild altered sensation on the right lower face. Patient has been n.p.o. waiting for speech evaluation. Yesterday patient also felt mild chest pressure. She was seen in the ER on the for near syncopal episode. Otherwise denies any heart palpitations. Troponins have been negative MRI of the brain report and images were reviewed by myself. Noted to have subacute left pontine ischemic stroke. CTA of the brain and neck were unremarkable with the exception of an incidental 6 mm right MCA aneurysm Past medical history significant for acromegaly with adrenal insufficiency status post surgery. Hypothyroidism, diabetes, hypertension, dyslipidemia, acid reflux with Schatzki's ring. Family history significant for CAD, diabetes, colon cancer Social history: No tobacco use. Normally independent her activities of daily living ROS: Complete review of systems otherwise negative except for the above mentioned. Allergies Allergy/AdvReac Type Severity Reaction Status Date / Time Sulfa (Sulfonamide Allergy Unknown RASH Verified 02/05/19 12:28 Antibiotics) dobutamine AdvReac Severe ST Verified 02/05/19 12:28 ELEVATION, CHEST PAIN Home Medications Home Medications Medication Instructions Recorded Confirmed Type alendronate 70 mg PO WK 01/31/19 02/05/19 History diltiazem HCl [Tiazac] 300 mg PO DAILY 01/31/19 02/05/19 History hydrocortisone 10 mg PO BID 01/31/19 02/05/19 History levothyroxine [Synthroid] 150 mcg PO DAILY 01/31/19 02/05/19 History metformin 1,000 mg PO BID 01/31/19 02/05/19 History pantoprazole 40 mg PO DAILY 01/31/19 02/05/19 History rosuvastatin 5 mg PO WK 01/31/19 02/05/19 History spironolactone 25 mg PO QPM 01/31/19 02/05/19 History spironolactone 50 mg PO QAM 01/31/19 02/05/19 History Patient History Medical History Adrenal insufficiency CVA (cerebral vascular accident) Diabetes Hyperlipidemia Hypertension Hypothyroid No significant past medical history Surgical History History of hypophysectomy Family History Other Family history non-contributory Social History Preferred Language: Armenian Communication Ability: Effective Process Stripper Required: No Beliefs That Will Affect Care: None marital status: Current Living Situation: Spouse current occupational status: retired Other Information That Helps Us Care for You: No Feels Safe at Home: Yes Safety Concerns: Feels Safe At This Time Smoking Status: Never smoker Do You Dip or Chew Tobacco: No Second Hand Exposure: No Tobacco Cessation Education Requested by Patient: No Hx Alcohol Use: No Hx Substance Use: No Physical Exam Physical Exam: Gen.: Patient is alert and oriented in no acute distress lying in bed Heart: Regular rate and rhythm Extremities: No gross deformities or rashes noted Neurological examination: Mental status: Patient is alert and oriented to person place and time. Able to give his own history. Good fund of knowledge. Attention and concentration normal for the situation. Recent and remote memory intact Speech is fluent with mild to moderate dysarthria Cranial nerves: Funduscopic examination was difficult to visualize but no signs of papilledema. Pupils equally round and reactive to light. Extraocular muscles intact without nystagmus. Mild right lower facial droop. Facial sensation intact. Tongue midline. Good palatal elevation. Good shoulder shrug bilaterally. Hearing grossly intact voice. Strength: 5/5 both proximal and distal in left upper and lower extremity.Tone is normal. Right upper extremity deltoid and bicep 3-/5, and distally 0/5. Right hip flexion 3/5 and distally 0/5 Sensation: Grossly intact to light touch in all extremities Deep tendon reflexes: +1 in bilateral biceps and patellar. Coordination: Patient has good finger to nose without dysmetria Station within the bed is normal. Results & Data Vital Signs (Past 12 Hours) Vital Signs Temp Pulse Pulse Resp BP Pulse Ox 02/06/19 07:29 56 L 02/06/19 07:19 36.6 C 58 L 16 179/83 H 91 02/06/19 04:00 36.5 C 53 L 19 158/87 H 95 02/06/19 00:00 52 L 04/17/19 23:38 36.6 C 55 L 20 178/85 H 95
[2019-02-06] MEDS: SODIUM CHLORIDE 0.9% 1000ML 1,000 ML IV SCH (13:23)
--- NOTE | 2019-02-06 14:26 | Hospitalist Progress Note ---
Date of Service February 06, 2019 Assessment & Plan (1) CVA (cerebral vascular accident): MRI brain on 02/05 showed acute/subacute left yarelis CVA. No prior strokes. - Echo pending - ASA/Plavix & statin - PT/OT/SEM MANAGER - NPO until seen by speech given her dysarthria - Permissive hypertension - Repeat MRI today given worsening weakness (2) Chest pressure: Reports chest pressure since this morning. EKG shows septal infarct pattern, but this appears stable from 01/31/2019. First troponin negative. In 05/2009, she had a heart cath in the setting of ST elevations that was clean. It was thought it might be a vasospasm event. Reports STEMI in the setting of a prior dobutamine stress test. - Troponins all negative and EKGs stable. (3) Brain aneurysm: CTA head on 02/05 showed 6 mm distal right MCA aneurysm at the level of the sylvian fissure. No indication on any imaging that this had any rupture or bleeding. 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 Follows with endocrinology as outpatient. - Continue hydrocortisone 10mg PO BID (5) Hypothyroid: Due to pituitary insufficiency. TSH is (as expected) undetectable. FT4/FT3 are 1.5 & 3.1 respectively which is within normal limits. - Continue levothyroxine 150 mcg PO daily (6) Diabetes: A1c was 6.3% this admission. Only on metformin as an outpatient. - Sliding scale insulin (7) Hypertension: On diltiazem and spironolactone as outpatient. Spironolactone may be for some of her Na+/K+ regulation, but she is not sure. - Odd HTN regimen given neither of these is first-line HTN therapy. - Will allow permissive HTN in the first 24-48 hour period per neurology - Adjust BP meds as needed (8) Hyperlipidemia: Only on rosuvastatin 5mg weekly. Would benefit from high-intensity statin therapy. - Discuss with patient and increase statin as able (9) DVT prophylaxis: Lovenox 40mg subcut daily Subjective Doing worse today. Weaker arm and leg. Speech is similar, or possibly slightly worse. Review of Systems Cardiovascular: no dyspnea, no dyspnea on exertion, no palpitations and no syncope Neurologic: + paralysis (Discoordination); no generalized weakness, no loss of sensation, no numbness and no paresthesia Physical Exam Constitutional: WD/WN, vitals as above Eyes: EOM intact bilaterally; no conjunctival abnormality ENMT: external ear and nose normal, oropharynx normal Neck: trachea midline, no thyromegaly normal visual inspection Respiratory: normal respiratory effort, lungs clear to auscultation no respiratory distress Cardiovascular: RRR, no murmur, no edema Gastrointestinal (Abdomen): Inspection/Auscultation: abdomen normal to inspection; abdomen not distended Musculoskeletal: no cyanosis or clubbing, extremities motor strength 5/5 Skin: no rashes, warm and dry Neurologic: moves all extremities, + focal motor deficit (Right arm and leg) and awake Psychiatric: Orientation: alert, oriented to person and cooperative Results & Data Vital Signs (Past 12 Hours) Vital Signs Temp Pulse Pulse Resp BP Pulse Ox 02/06/19 11:30 36.5 C 74 16 180/81 H 98 02/06/19 07:29 56 L 02/06/19 07:19 36.6 C 58 L 16 179/83 H 91 02/06/19 04:00 36.5 C 53 L 19 158/87 H 95
--- NOTE | 2019-02-06 16:03 | Magnetic Resonance Report ---
MR brain wo con HISTORY: Stroke Worsening CVA symptoms TECHNIQUE: Multiplanar multisequence MRI of the brain was performed without the use of contrast. COMPARISON STUDY: 02/05/2019 FINDINGS: No change compared to the prior study. Acute/subacute left pontine infarct. No significant change in size or configuration. No additional area of infarction. Unchanged components of atrophy as well as chronic small vessel change. Unchanged 6 mm aneurysm right middle cerebral arterial distribution. IMPRESSION: 1. Acute/subacute infarct left yarelis. 2. No change compared to the prior study. 3. No evidence for interval change or progression. The above report was generated using voice recognition software. It may contain grammatical, syntax or spelling errors. Electronically signed by: Duran Medrano M.D. 02/06/2019 4:02 PM
[2019-02-06] MEDS: ACETAMINOPHEN 325 MG TAB PO PRN ×2 (17:00→22:05)
[2019-02-06] MEDS ORDERED: PRAVASTATIN SOD 10 MG TAB PO SCH (17:00)
[2019-02-07] MEDS ORDERED: ACETAMINOPHEN 325 MG TAB PO STA (00:25)
[2019-02-07] MEDS: SODIUM CHLORIDE 0.9% 1000ML 1,000 ML IV SCH (01:41)
[2019-02-07] MEDS: LEVOTHYROXINE SODIUM 150 MCG TABLET PO SCH (06:12)
[2019-02-07] MEDS: SPIRONOLACTONE 25 MG TAB PO SCH (08:30)
[2019-02-07] MEDS: HYDROCORTISONE 10 MG TAB PO SCH (08:31)
[2019-02-07] MEDS: ASPIRIN 81 MG CHEW PO SCH (08:31)
[2019-02-07] MEDS: ENOXAPARIN INJ 40 MG/0.4 ML SYR SQ SCH (08:31)
[2019-02-07] MEDS: INSULIN ASPART 100 UNITS/ML 3 ML PEN SC SCH ×2 (08:34→13:12)
[2019-02-07] MEDS: PANTOprazole 40 MG TAB PO SCH (08:35)
[2019-02-07] MEDS: CLOPIDOGREL BISULFATE 75 MG TAB PO SCH (08:35)
[2019-02-07] MEDS ORDERED: STROKE PATIENT DISCHARGE STA (11:16)
[2019-02-07] MEDS ORDERED: LISINOPRIL 10 MG TAB PO SCH (11:30)
[2019-02-07] MEDS ORDERED: HydrALAZINE HCL 20 MG/ML VIAL IV PRN (16:37)
--- NOTE | 2019-02-07 16:43 | Discharge Summary ---
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 She noted difficulty walking on Sunday, and presented to the emergency department. She was diagnosed with low blood pressure secondary to missing her hydrocortisone for her hypopituitarism. She was discharged on Sunday, and the symptoms resolved. However this morning at 8 AM, she noted that she was having difficulty speaking, discoordination of her right upper extremity, and again having difficulty walking due to RLE weakness. She presented to the emergency department, but was outside of the TPA window. At present she continues to endorse dysarthria, but no dysphasia. No facial droop. Discoordination and weakness of the right upper extremity, and RLE. She also notes a slight chest pressure that has been ongoing since this morning. Reports it is like a "small child" is sitting on her chest. No fevers, chills, sweats, shortness of breath, abdominal pain, nausea, vom iting, or other symptoms. Principal Diagnosis Left yarelis stroke Discharge Exam Constitutional WD/WN, vitals as above Eyes EOM intact bilaterally; no conjunctival abnormality ENMT external ear and nose normal, oropharynx normal Neck trachea midline, no thyromegaly normal visual inspection Respiratory normal respiratory effort, lungs clear to auscultation no respiratory distress Cardiovascular RRR, no murmur, no edema Gastrointestinal (Abdomen) Inspection/Auscultation: abdomen normal to inspection; abdomen not distended Musculoskeletal no cyanosis or clubbing, extremities motor strength 5/5 Skin no rashes, warm and dry Neurologic moves all extremities, + focal motor deficit (Right arm and leg) and awake Psychiatric Orientation: alert, oriented to person and cooperative Discharge Data Allergies Allergy/AdvReac Type Severity Reaction Status Date / Time Sulfa (Sulfonamide Allergy Unknown RASH Verified 02/05/19 12:28 Antibiotics) dobutamine AdvReac Severe ST Verified 02/05/19 12:28 ELEVATION, CHEST PAIN Consultations 02/05/19 13:21 ED Decision to Admit Stat 02/05/19 15:54 Consult Case Management - Discharge Planning Routine Consult Neurology Routine Ordered Studies 02/05/19 11:42 CT head/brain wo con Stat 02/05/19 11:57 CT angio head w con Stat CT angio neck with con Stat 02/05/19 15:54 MR brain wo con Urgent 02/06/19 14:27 MR brain wo con Urgent Hospital Course (1) CVA (cerebral vascular accident): MRI brain on 02/05 showed acute/subacute left yarelis CVA. No prior strokes. - Echo showed no inter-atrial shunt, no valvular abnormalities - ASA/Plavix & statin - Seen by SPRING [facility]ER - Recommended minced and moist diet. Alt solids and liquids, fully upright for meals, small bites. - Repeat MRI on 02/06 was done due to her getting weaker in the right arm and leg. Repeat MRI did not show any additional CVA. Strength was returning by the time of discharge. (2) Chest pressure: Reports chest pressure since this morning. EKG shows septal infarct pattern, but this appears stable from 01/31/2019. First troponin negative. In 05/2009, she had a heart cath in the setting of ST elevations that was clean. It was thought it might be a vasospasm event. Reports STEMI in the setting of a prior dobutamine stress test. - Troponins all negative and EKGs stable. (3) Brain aneurysm: CTA head on 02/05 showed 6 mm distal right MCA aneurysm at the level of the sylvian fissure. No indication on any imaging that this had any rupture or bleeding. 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 Follows with endocrinology as outpatient. - Continue hydrocortisone 10mg PO BID (5) Hypothyroid: Due to pituitary insufficiency. TSH is (as expected) undetectable. FT4/FT3 are 1.5 & 3.1 respectively which is within normal limits. - Continue levothyroxine 150 mcg PO daily (6) Diabetes: A1c was 6.3% this admission. Only on metformin as an outpatient. - Sliding scale insulin (7) Hypertension: On diltiazem and spironolactone as outpatient. Spironolactone may be for some of her Na+/K+ regulation, but she is not sure. - Odd HTN regimen given neither of these is first-line HTN therapy. - Allowed permissive HTN in the first 24-48 hour period per neurology - Added lisinopril 10mg PO daily on 02/07 for continued BPs in the 180/80 range. (8) Hyperlipidemia: Only on rosuvastatin 5mg weekly. Would benefit from high-intensity statin therapy. - Switched to pravastatin as she has had myalgias with atorvastatin and rosuvastatin. (9) DVT prophylaxis: Lovenox 40mg subcut daily Total Time Total Time Spent Total Time Spent (In Minutes): 35 Total Time Includes: Examination of the Patient, Discharge Planning and Medication Reconciliation Discharge Plan Discharge Items Patient Disposition: Transfer Inpatient Rehab Fac Reason For Visit: STROKE Discharge Diagnosis: Left yarelis stroke Discharge Goals: Improve function and Increase independence Activity: Resume your previous activity Non-emergency contact: Primary Care Provider and Neurologist Call non-emergency contact if: your symptoms worsen, your pain is not controlled and your temperature is above 100.5 Follow-up/Referrals: Cristobal Gamino [Primary Care Provider] - Diet: Heart Healthy Addtl Provider Instructions: Please give the Tums before meals to help with nausea/upset stomach. Risk Factors for Stroke: You can reduce your chances of stroke by working with your medical provider to adopt a healthy lifestyle. Some specific ways to lower your chance of stroke are: * If you are a smoker, now is the time to stop smoking cigarettes * If you are diabetic, improve the control of your blood sugars * Avoid excessive amounts of alcohol * Control high blood pressure * Lose weight if you are overweight * Be sure to lead an active lifestyle * Eat a healthy diet low in salt, cholesterol and fat You should know about other risk factors for stroke that you are unable to control. These include: * Age 55 years or older * Male gender * Certain racial groups: , or / * Family History of Stroke, Mini stroke or Heart Attack * Sickle Cell Disease Follow Up: It is important for you to keep your follow up appointments with your medical provider. Who to Call and When: Medical Emergencies: Call 911 immediately if you experience any of the following warning signs and symptoms of Stroke: * Sudden numbness or weakness of the face, arm or leg, especially on one side of the body * Sudden confusion, trouble speaking or understanding * Sudden trouble seeing in one or both eyes * Sudden trouble walking, dizziness, loss of balance or coordination * Sudden severe headache with no cause Do not delay calling 911 if you experience any warning signs or symptoms of a stroke. Delay in seeking medical attention may affect what treatments can be given to you. . Prescriptions: New clopidogrel 75 mg Tablet 75 mg PO QAM Qty: 1 RF: 0 pravastatin 10 mg Tablet 10 mg PO DAILY@1700 Qty: 1 RF: 0 aspirin 81 mg Tablet,Chewable 81 mg PO DAILY Qty: 1 RF: 0 calcium carbonate [Tums] 200 mg calcium (500 mg) tablet,chewable 200 mg PO TID Qty: 1 RF: 0 lisinopril 10 mg tablet 10 mg PO DAILY Qty: 1 RF: 0 Continued hydrocortisone 5 mg tablet 10 mg PO BID RF: 0 alendronate 70 mg Tablet 70 mg PO WK RF: 0 spironolactone 25 mg Tablet 50 mg PO QAM RF: 0 spironolactone 25 mg Tablet 25 mg PO QPM RF: 0 pantoprazole 40 mg tablet,delayed release (DR/EC) 40 mg PO DAILY RF: 0 metformin 1,000 mg tablet 1,000 mg PO BID RF: 0 levothyroxine [Synthroid] 150 mcg Tablet 150 mcg PO DAILY RF: 0 Discontinued diltiazem HCl [Tiazac] 300 mg Capsule,Extended Release 24 Hr 300 mg PO DAILY RF: 0 rosuvastatin 5 mg Tablet 5 mg PO WK RF: 0 Stand-Alone Forms: [facility] Discharge Orders: Discharge Order (Routine); Ordered 02/07/19 Ordered By: Remi Galicia Skilled Items Patient informed of condition?: Yes DNR: No Discharge Level of Care: Acute rehab Communicable Disease: No Discharge Prognosis: Improving Admission Data Admit Date/Time: 02/05/19 14:23 Attending Provider: Remi Galicia Admit Provider: Remi Galicia Primary Care Provider: Cristobal Gamino Other Providers: Alfie Montes De Oca Brian A. Service: Telemetry Medical Other Interventions: Discharge Summary Assessment (RN) Last Done: 02/07/19 15:56
[2019-02-08] MEDS ORDERED: ROSUVASTATIN CALCIUM 5 MG TAB PO SCH (09:00)
== END 2019-02-07 16:10 | DRG 65 ==
LOC: ED 11:01 → 2N 14:23

== ENCOUNTER 2019-09-14 12:44 | Inpatient (IN) ==
[2019-09-14] MEDS ORDERED: MoRPHine SULFATE 2 MG/ML CARP IV PRN (13:07)
[2019-09-14] MEDS ORDERED: MoRPHine SULFATE 4 MG/ML 1 ML CARP\\VIAL IV PRN (13:07)
[2019-09-14 13:33] LABS: Basophils # (auto) 0.01 K/uL (0-0.2); Basophils % (auto) 0.2 %; Eosinophils # (auto) 0.17 K/uL (0-0.5); Eosinophils % (auto) 3.1 %; Hematocrit (blood only) 38.4 % (37-47); Hemoglobin 13.2 g/dL (12.0-16.0); Immature Granulocytes # (auto) 0.02 K/uL (0.00-0.02); Immature Granulocytes % (auto) 0.4 %; Lymphocytes # (auto) 1.71 K/uL (1.2-3.4); Lymphocytes % (auto) 31.3 %; Mean Corpuscular Hemoglobin 30.4 pg (25-34); Mean Corpuscular Hgb Conc 34.4 g/dL (32-36); Mean Corpuscular Volume 88.5 fL (80-100); Mean Platelet Volume 9.9 fL (7.4-10.4); Monocytes # (auto) 0.35 K/uL (0.11-0.59); Monocytes % (auto) 6.4 %; Neutrophils % (auto) 58.6 %; Platelet Count 222 K/uL (130-400); RDW Coefficient of Variation 12.5 % (11.5-14.5); RDW Standard Deviation 40.3 fL (36.4-46.3); Red Blood Count 4.34 M/uL (4.2-5.4); White Blood Count 5.46 K/uL (4.8-10.8)
[2019-09-14] MEDS ORDERED: MoRPHine SULFATE 10 MG/ML CARP/VIAL IV STA (13:35)
[2019-09-14 13:44] LABS: Partial Thromboplastin Ratio 0.9; Prothrombin Time 10.6 Seconds (9.0-12.0)
[2019-09-14 13:49] LABS: BUN Creatinine Ratio 19.6 (10-20); Calcium 9.4 mg/dl (8.5-10.1); Creatinine Clr Calc Pharmacy 99.6 ml/min; Est GFR (Non-African American) 93.2; Potassium 3.6 mmol/L (3.5-5.1)
--- NOTE | 2019-09-14 14:05 | CT Scan Report ---
CT head/brain wo con CT DOSE: 537.48 mGy.cm HISTORY: Trauma fall hit head on Xa inhibitor TECHNIQUE: Multiaxial CT images of the head were performed without the use of intravenous contrast. A dose lowering technique was utilized adhering to the principles of ALARA. Comparison: 07/09/2019 Findings: The paranasal sinuses and mastoid air cells are clear. The calvarium and skull base are int act. The ventricles and sulci are within normal limits. There is no mass, hematoma, midline shift, or acute infarct. Unchanged exam compared to the prior study. Stable right craniotomy procedure. No zainab dence for an acute intracranial abnormality. Impression: Chronic and postoperative change. No acute process. No change from the prior exam. The above report was generated using voice recognition software. It may contain grammatical, syntax or spelling errors. Electronically signed by: Duran Medrano M.D. 09/14/2019 2:04 PM
[2019-09-14 14:33] LABS: Appearance Urine Clear (Clear); Bilirubin Urine Negative (Negative); Blood Urine Negative (Negative); Color Urine Yellow; Glucose Urine UA Negative (Negative); Ketones Urine Negative (Negative); Leukocyte Esterase Urine Negative (Negative); Nitrite Urine Negative (Negative); Protein Urine Negative (Negative); Specific Gravity Urine 1.017 (1.000-1.030); Urobilinogen Urine Negative (Negative)
--- NOTE | 2019-09-14 14:58 | XRay Report ---
XR hip LT 2V w pelvis CLINICAL HISTORY: l hip pain pain COMPARISON: 05/27/2019 DISCUSSION: Bilateral hip arthroplasties. Moderate degenerative change of the bony structures through out. No well-defined fracture. Could contact between prosthetic bilaterally and underlying bone. There is no evidence for soft tissue swelling. IMPRESSION: No acute process post bilateral total hip arthroplasties. The above report was generated using voice recognition software. It may contain grammatical, syntax or spelling errors. Electronically signed by: uDran Medrano M.D. 09/14/2019 2:56 PM
--- NOTE | 2019-09-14 15:01 | XRay Report ---
XR femur LT 2V routine CLINICAL HISTORY: l femur pain COMPARISON: None. DISCUSSION: Slight incomplete cortical defect lateral aspect proximal left femoral shaft. This is imm ediately inferior to the greater trochanter. Study is otherwise negative for an additional acute bony abnormality. Total left hip arthroplasty in good position. There is no evidence for soft tissue swelling. IMPRESSION: Possible lateral cortical fracture proximal femoral shaft. Total left hip arthroplasty in good position. The above report was generated using voice recognition software. It may contain grammatical, syntax or spelling errors. Electronically signed by: Duran Medrano M.D. 09/14/2019 3:00 PM
--- NOTE | 2019-09-14 15:03 | XRay Report ---
XR chest 1V portable CLINICAL HISTORY: fall trauma COMPARISON STUDY: 05/19/2019 FINDINGS: The bones soft tissues and hemidiaphragms are normal. The cardiomediastinal silhouette is n ormal. The lungs are clear. The pulmonary vasculature is normal. IMPRESSION: Negative chest. The above report was generated using voice recognition software. It may contain grammatical, syntax or spelling errors. Electronically signed by: Duran Medrano M.D. 09/14/2019 3:02 PM
[2019-09-14 15:10] LABS: Albumin Level 3.5 gm/dl (3.4-5.0); Bilirubin,Total 0.7 mg/dl (0.2-1); Total Protein 6.4 gm/dl (6.4-8.2)
--- NOTE | 2019-09-14 15:52 | History & Physical Report ---
Date of Service September 14, 2019 Assessment & Plan (1) Closed fracture of left hip: Consult orthopedics. Keep the patient NPO after midnight. IV morphine PRN basis. (2) Fall: (3) Paroxysmal atrial fibrillation: Consult cardiology. Eliquis on hold in anticipation of surgery. (4) H/O craniotomy: History of craniotomy for brain aneurysm. (5) Chronic anticoagulation: Hold Eliquis. (6) History of CVA (cerebrovascular accident): (7) Ambulatory dysfunction: Will need PT OT and case management consult for discharge planning (8) HTN (hypertension): Continue home medications. (9) Dyslipidemia: Continue with statins (10) GERD (gastroesophageal reflux disease): Continue Protonix. (11) Hypothyroidism: Continue with Synthroid. (12) Hypopituitarism: Continue home medications. (13) DVT prophylaxis: SCD History of Present Illness Chief Complaint: Status post fall, left hip deformity and pain Primary Care Provider: Cristobal Gamino MD The patient is 74-year-old female with history of CVA and right-sided weakness. Today she tripped and fell on the left side and was complaining of left hip pain and deformity. Further work-up done in the ER shows that patient has left hip fracture. Orthopedics was notified. She will be admitted for further evaluation and management. She was given morphine for pain control. She denies any loss of consciousness. No seizures. No bowel bladder incontinence. The patient is currently on Eliquis for paroxysmal atrial fibrillation. Allerg ies Allergy/AdvReac Type Severity Reaction Status Date / Time Sulfa (Sulfonamide Allergy Unknown RASH Verified 09/14/19 15:04 Antibiotics) dobutamine AdvReac Severe ST Verified 09/14/19 15:04 ELEVATION, CHEST PAIN Home Medications Home Medications Medication Instructions Recorded Confirmed Type levothyroxine [Synthroid] 150 mcg PO QAM 01/31/19 09/14/19 History metformin 1,000 mg PO BID 01/31/19 09/14/19 History pantoprazole 40 mg PO QAM 01/31/19 09/14/19 History hydrocortisone 20 mg PO BID 03/10/19 09/14/19 History rosuvastatin 5 mg PO WK 03/10/19 09/14/19 History apixaban [Eliquis] 5 mg PO BID 05/19/19 09/14/19 History metoprolol succinate 100 mg PO QAM 05/19/19 09/14/19 History blood sugar diagnostic #10 ea 05/28/19 05/28/19 History lancets 30 gauge #25 ea 05/28/19 05/28/19 History ezetimibe 10 mg tablet 10 mg PO DAILY #90 tab 08/18/19 09/14/19 Rx risedronate 150 mg PO MONTHLY 09/14/19 09/14/19 History Past Med/Surg History Medical History Abnormal mammogram Acid reflux disease (Acute) Acute CVA (cerebrovascular accident) Adrenal insufficiency Arm weakness (Inactive) Brain aneurysm Chest pressure CVA (cerebral vascular accident) Diabetes DVT prophylaxis Hyperlipidemia Hypertension Hypomagnesemia (Inactive) Hypopituitarism (Acute) Hypothyroid No significant past medical history Osteoporosis (Acute) Paresthesia (Inactive) Right sided weakness (Acute) Schatzki's ring of distal esophagus (Acute) Slurred speech (Acute) Surgical History H/O dilation and curettage (Acute) H/O total hip arthroplasty (Acute) History of hypophysectomy History of tonsillectomy (Acute) Hx of cataract surgery (Acute) Hx of tubal ligation (Acute) S/P aneurysm repair (Inactive) Family History Father Colon cancer Colorectal cancer Stroke Diabetes Myocardial infarction Mother ASCVD (arteriosclerotic cardiovascular disease) Lymphoma Father Colorectal cancer Grandfather (Paternal) Diabetes Daughter Cervical cancer Grandmother (Maternal) Cervical cancer Other Family history non-contributory Social History Preferred Language: Telugu Communication Ability: Effective 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 Required: No Beliefs That Will Affect Care: None marital status: Current Living Situation: Spouse current occupational status: retired Feels Safe at Home: Yes Smoking Status: Never smoker Second Hand Exposure: No ; Hx Alcohol Use: Yes Alcohol type: wine Hx Substance Use: No Review of Systems Review of Systems: All systems reviewed & are unremarkable except as noted in HPI & below Physical Exam Physical Exam: GENERAL : No acute distress EYES: No icterus, gaze conjugate NOSE: No evidence of epistaxis MOUTH: No lesions or candidiasis, mucosa moist NECK: Supple LUNGS: CTA B/L, no wheezes, rales or rhonchi HEART: Regular, rate controlled ABDOMEN: Soft, NT, ND, BS Present EXTREMITIES: Left hip deformity noted. Patient cannot straighten the left leg. NEURO: A&OX3 Results & Data Vital Signs (Past 12 Hours) Vital Signs Temp Pulse Pulse Resp BP BP Pulse Ox 09/14/19 14:09 62 18 188/83 H 97 09/14/19 13:36 59 L 18 197/86 H 98 09/14/19 12:48 98.2 F 61 20 211/102 H 96 Laboratory Results 09/14/19 13:25 09/14/19 13:25 Diagnostic Findings ADDENDUM Note is made of a possible unilateral cortical defect of the proximal femoral shaft left hip. This is best seen on the femoral images of the same date. Electronically signed by: Duran Medrano M.D. 09/14/2019 3:02 PM ADDENDUM END XR hip LT 2V w pelvis CLINICAL HISTORY: l hip pain pain COMPARISON: 05/27/2019 DISCUSSION: Bilateral hip arthroplasties. Moderate degenerative change of the bony structures throughout. No well-defined fracture. Could contact between prosthetic bilaterally and underlying bone. There is no evidence for soft tissue swelling. IMPRESSION: No acute process post bilateral total hip arthroplasties. [facility] JULIETA Cat [phone] CT Scan Report Patient: ALEXANDR CONROY Date: 09/14/19 MR#: [id number] RU[address] Acct ID:[id number]: Date: 1945City Zip: [place] [address] Age: 74Location: ED Sex: F Room/Bed: Att Phy:Diagnosis: fall/ L hip pain Abeba Phy: Cristobal Gamino, MDService Date: 09/14/19 Fam Phy:Interpreting Phy: Duran Medrano MD Admit Phy: Ordering Phy: Luciano, Sal M., DO cc: ~ CT head/brain wo con CT DOSE: 537.48 mGy.cm HISTORY: Trauma fall hit head on Xa inhibitor TECHNIQUE: Multiaxial CT images of the head were performed without the use of intravenous contrast. A dose lowering technique was utilized adhering to the principles of ALARA. Comparison: 07/09/2019 Findings: The paranasal sinuses and mastoid air cells are clear. The calvarium and skull base are intact. The ventricles and sulci are within normal limits. There is no mass, hematoma, midline shift, or acute infarct. Unchanged exam compared to the prior study. Stable right craniotomy procedure. No evidence for an acute intracranial abnormality. Impression: Chronic and postoperative change. No acute process. No change from the prior exam. The above report was generated using voice recognition software. It may contain grammatical, syntax or spelling errors. Electronically signed by: Duran Medrano M.D. 09/14/2019 2:04 PM Dictated: 09/14/19 1402 Transcribed: 09/14/19 1402 Code Status & VTE Plan VTE Prophylaxis Plan VTE Prophylaxis will be ordered: Yes (1) Fall Encounter type: initial encounter Qualified Code(s): W19.XXXA - Unspecified fall, initial encounter (2) Closed fracture of left hip Encounter type: initial encounter Qualified Code(s): S72.002A - Fracture of unspecified part of neck of left femur, initial encounter for closed fracture
--- NOTE | 2019-09-14 16:02 | Emergency Department Note ---
Entered by Samra Loera acting as a scribe for History of Present Illness General Chief complaint: Hip Pain Stated complaint: fall/ L hip pain Source: patient History of Present Illness Onset (ago): hour(s) (just prior to arrival) Location: left Pain Consistency: + other (episode ) Quality: + other (fall) Associated symptoms: + other (positive left hip pain; positive left leg pain; negative tingling; negative numbness; negative neck pain; negative abdominal pain); no chest pain and no headaches The patient is a 74 year old female with PMHx of DVT, brain aneurysm, HTN, HLD, hypothyroidism, and CVA who presents to the Emergency Room with complaints of an episode of a fall that occurred just prior to arrival. The patient states that she was in the kitchen when she turned and fell. She states that she fell onto her left side and hit her head on the floor. The patient reports left hip and leg pain currently. She denies tingling, numbness, headache, neck pain, chest pain, and abdominal pain. The patient states that she is on Eliquis and states that she previously had both hips replaced. Pain is severe and constant but significantly improved with keeping her hip partially flexed as well as her knee supported on the bed Home Medications Home Medications Medication Instructions Recorded Confirmed Type levothyroxine [Synthroid] 150 mcg PO QAM 01/31/19 09/14/19 History metformin 1,000 mg PO BID 01/31/19 09/14/19 History pantoprazole 40 mg PO QAM 01/31/19 09/14/19 History hydrocortisone 20 mg PO BID 03/10/19 09/14/19 History rosuvastatin 5 mg PO WK 03/10/19 09/14/19 History apixaban [Eliquis] 5 mg PO BID 05/19/19 09/14/19 History metoprolol succinate 100 mg PO QAM 05/19/19 09/14/19 History blood sugar diagnostic #10 ea 05/28/19 05/28/19 History lancets 30 gauge #25 ea 05/28/19 05/28/19 History ezetimibe 10 mg tablet 10 mg PO DAILY #90 tab 08/18/19 09/14/19 Rx risedronate 150 mg PO MONTHLY 09/14/19 09/14/19 History Allergies Allergy/AdvReac Type Severity Reaction Status Date / Time Sulfa (Sulfonamide Allergy Unknown RASH Verified 09/14/19 15:04 Antibiotics) dobutamine AdvReac Severe ST Verified 09/14/19 15:04 ELEVATION, CHEST PAIN Past Med/Surg History Medical History (Updated 09/14/19 @ 17:14 by Sal Luciano DO) Abnormal mammogram Acid reflux disease (Acute) Acute CVA (cerebrovascular accident) Adrenal insufficiency Ambulatory dysfunction Arm weakness (Inactive) Brain aneurysm Chest pressure Chronic anticoagulation CVA (cerebral vascular accident) Diabetes DVT prophylaxis Dyslipidemia GERD (gastroesophageal reflux disease) History of CVA (cerebrovascular accident) (Acute) HTN (hypertension) Hyperlipidemia Hypertension Hypomagnesemia (Inactive) Hypopituitarism (Acute) Hypothyroid Hypothyroidism No significant past medical history Osteoporosis (Acute) Paresthesia (Inactive) Paroxysmal atrial fibrillation Right sided weakness (Acute) Schatzki's ring of distal esophagus (Acute) Slurred speech (Acute) Surgical History (Updated 09/14/19 @ 15:59 by Michael Jimenez MD) H/O craniotomy H/O dilation and curettage (Acute) H/O total hip arthroplasty (Acute) History of hypophysectomy History of tonsillectomy (Acute) Hx of cataract surgery (Acute) Hx of tubal ligation (Acute) S/P aneurysm repair (Inactive) Family History Father Colon cancer Colorectal cancer Stroke Diabetes Myocardial infarction Mother ASCVD (arteriosclerotic cardiovascular disease) Lymphoma Father Colorectal cancer Grandfather (Paternal) Diabetes Daughter Cervical cancer Grandmother (Maternal) Cervical cancer Other Family history non-contributory Social History Preferred Language: Northern Irish Communication Ability: Effective Cook Fishing Vessel Required: No Beliefs That Will Affect Care: None marital status: Current Living Situation: Spouse current occupational status: retired Other Information That Helps Us Care for You: No Feels Safe at Home: Yes Safety Concerns: Feels Safe At This Time Smoking Status: Never smoker Do You Dip or Chew Tobacco: No ; Second Hand Exposure: No ; Tobacco Cessation Education Requested by Patient: No Hx Alcohol Use: No Hx Substance Use: No Review of Systems See HPI for pertinent positives & negatives. and A total of 10 systems reviewed and were otherwise negative Physical Exam Vital Signs Vital Signs - 24 hr 09/14/19 12:48 09/14/19 13:36 09/14/19 14:09 Temperature 36.8 C Temperature Source Oral Pulse Rate 61 Pulse Rate [Left Finger] 59 L 62 Pulse Rhythm [Left Finger] Respiratory Rate 20 18 18 Respiratory Effort / Characteristics Non-Labored Spontaneous Respiratory Depth Normal Respiratory Pattern Regular Blood Pressure 211/102 H Blood Pressure [Right Arm] 197/86 H 188/83 H Blood Pressure Mean 138 Blood Pressure Mean [Right Arm] 123 118 Pulse Oximetry 96 98 97 Oxygen Delivery Method Room Air Room Air Room Air Sepsis Recent Fever Within 48 Hours No Sepsis Action Taken by Nursing No Action Required 09/14/19 15:30 Temperature Temperature Source Pulse Rate Pulse Rate [Left Finger] 65 Pulse Rhythm [Left Finger] Regular Respiratory Rate 18 Respiratory Effort / Characteristics Non-Labored Respiratory Depth Normal Respiratory Pattern Regular Blood Pressure Blood Pressure [Right Arm] 134/59 L Blood Pressure Mean Blood Pressure Mean [Right Arm] 84 Pulse Oximetry 95 Oxygen Delivery Method Room Air Sepsis Recent Fever Within 48 Hours Sepsis Action Taken by Nursing GENERAL: Sitting up in bed. Holding left leg in flexion at the knee at 40 degrees. Moderate distress. HEAD: normal cephalic, atraumatic EYE EXAM: normal conjunctiva, PERRL and EOM's grossly intact OROPHARYNX: no exudate, no erythema, lips, buccal mucosa, and tongue normal and mucous membranes are moist NECK: supple, no nuchal rigidity, no adenopathy, non-tender CHEST: stable to compression anteriorly and posteriorly LUNGS: clear to auscultation. Normal chest wall mechanics HEART: no murmurs, S1 normal and S2 normal ABDOMEN: abdomen soft, non-tender, normo-active bowel sounds, no masses, no rebound or guarding. PELVIS: stable to compression anteriorly and posteriorly BACK: Back is symmetrical on inspection and there is no deformity, no midline tenderness, no CVA tenderness. UPPER EXTREMITIES: full active and passive range of motion of all joints without tenderness to palpation LOWER EXTREMITIES: full active and passive range of motion of all joints without tenderness to palpation with exception of severe acute tenderness of the left proximal hip and left mid femur. Hip held in flexion as well as the knee for comfort. No pain to the left knee, barrett, or ankle. Skin is intact. DP 2/4. Gross sensation intact. NEURO EXAM: Normal sensorium, cranial nerves II-XII grossly intact, normal speech, no gross weakness of arms. GCS: 15. Course Course ED COURSE: Vital signs were reviewed and showed hypertension. The patients medical record was reviewed The above diagnostic studies were performed and reviewed. ED treatments and interventions as stated above. 1300: The patient was evaluated in room B9. A complete history and physical examination was performed. 1512: Upon reevaluation, the patient is resting comfortably and feeling better. I discussed my findings with the patient and she understands and agrees with the treatment plan. 1519: I discussed the case with Dr. Crain-Orthoped[facility] who recommends further evaluation by medicine. Based on the patients age, coexisting illnesses, exam and lab findings the decision to treat as an inpatient was made. The patient remained stable while under my care. 1527: The patient will be evaluated for further management under Dr. Jimenez- [facility] Hospitalist service. Administered Medications Discontinued Medications Morphine Sulfate (Morphine Sulfate) 8 mg IV NOW STA Stop: 09/14/19 13:36 Last Admin: 09/14/19 13:43 Dose: 8 mg Documented by: [id number] Medical Decision Making Differential Diagnosis Differential diagnoses include major intracranial, cervical, spinal, thoracic, abdominal, pelvic and neurologic injury. Fracture, contusion, sprain, strain, laceration, abrasions included as well. Medical Records Attestation: I reviewed the patient's medical records. Home Medications Current Medication List: was personally reviewed by me Laboratory Data Attestation: I reviewed the patient's lab results. Result diagrams: 09/14/19 13:25 09/14/19 13:25 Lab Results 09/14/19 09/14/19 09/14/19 Range/Units 13:25 13:25 13:25 WBC 5.46 (4.8-10.8) K/uL RBC 4.34 (4.2-5.4) M/uL Hgb 13.2 (12.0-16.0) g/dL Hct 38.4 (37-47) % MCV 88.5 (80-100) fL MCH 30.4 (25-34) pg MCHC 34.4 (32-36) g/dL RDW Std Deviation 40.3 (36.4-46.3) fL RDW Coeff of Maureen 12.5 (11.5-14.5) % Plt Count 222 (130-400) K/uL MPV 9.9 (7.4-10.4) fL Immature Gran % (Auto) 0.4 % Neut % (Auto) 58.6 % Lymph % (Auto) 31.3 % Wall[place] % (Auto) 6.4 % Eos % (Auto) 3.1 % Baso % (Auto) 0.2 % Immature Gran # (Auto) 0.02 (0.00-0.02) K/uL Neut # (Auto) 3.20 (1.4-6.5) K/uL Lymph # (Auto) 1.71 (1.2-3.4) K/uL [place] # (Auto) 0.35 (0.11-0.59) K/uL Eos # (Auto) 0.17 (0-0.5) K/uL Baso # (Auto) 0.01 (0-0.2) K/uL PT 10.6 (9.0-12.0) Seconds INR 1.0 (0.9-1.1) APTT 25.0 (21.0-31.0) Seconds PTT Ratio 0.9 Sodium 140 (136-145) mmol/L Potassium 3.6 (3.5-5.1) mmol/L Chloride 106 (98-107) mmol/L Carbon Dioxide 29 (21-32) mmol/L Anion Gap 6.0 (3-11) BUN 11 (7-18) mg/dl Creatinine 0.56 L (0.6-1.2) mg/dl Est Cr Clr Drug Dosing 99.6 ml/min Est GFR ( Amer) 108.0 Est GFR (Non-Af Amer) 93.2 BUN/Creatinine Ratio 19.6 (10-20) Glucose 86 (70-99) mg/dl Calcium 9.4 (8.5-10.1) mg/dl Total Bilirubin 0.7 (0.2-1) mg/dl Direct Bilirubin 0.2 (0-0.2) mg/dl AST 16 (15-37) U/L ALT 19 (12-78) U/L Alkaline Phosphatase 75 (45-117) U/L Total Protein 6.4 (6.4-8.2) gm/dl Albumin 3.5 (3.4-5.0) gm/dl Urine Color Urine Appearance (Clear) Urine pH (4.5-7.5) Ur Specific [place] (1.000-1.030) Urine Protein (Negative) Urine Glucose (UA) (Negative) Urine Ketones (Negative) Urine Blood (Negative) Urine Nitrite (Negative) Urine Bilirubin (Negative) Urine Urobilinogen (Negative) Ur Leukocyte Esterase (Negative) 09/14/19 Range/Units 13:50 WBC (4.8-10.8) K/uL RBC (4.2-5.4) M/uL Hgb (12.0-16.0) g/dL Hct (37-47) % MCV (80-100) fL MCH (25-34) pg MCHC (32-36) g/dL RDW Std Deviation (36.4-46.3) fL RDW Coeff of Maureen (11.5-14.5) % Plt Count (130-400) K/uL MPV (7.4-10.4) fL Immature Gran % (Auto) % Neut % (Auto) % Lymph % (Auto) % Wall[place] % (Auto) % Eos % (Auto) % Baso % (Auto) % Immature Gran # (Auto) (0.00-0.02) K/uL Neut # (Auto) (1.4-6.5) K/uL Lymph # (Auto) (1.2-3.4) K/uL [place] # (Auto) (0.11-0.59) K/uL Eos # (Auto) (0-0.5) K/uL Baso # (Auto) (0-0.2) K/uL PT (9.0-12.0) Seconds INR (0.9-1.1) APTT (21.0-31.0) Seconds PTT Ratio Sodium (136-145) mmol/L Potassium (3.5-5.1) mmol/L Chloride (98-107) mmol/L Carbon Dioxide (21-32) mmol/L Anion Gap (3-11) BUN (7-18) mg/dl Creatinine (0.6-1.2) mg/dl Est Cr Clr Drug Dosing ml/min Est GFR ( Amer) Est GFR (Non-Af Amer) BUN/Creatinine Ratio (10-20) Glucose (70-99) mg/dl Calcium (8.5-10.1) mg/dl Total Bilirubin (0.2-1) mg/dl Direct Bilirubin (0-0.2) mg/dl AST (15-37) U/L ALT (12-78) U/L Alkaline Phosphatase (45-117) U/L Total Protein (6.4-8.2) gm/dl Albumin (3.4-5.0) gm/dl Urine Color Yellow Urine Appearance Clear (Clear) Urine pH 6.0 (4.5-7.5) Ur Specific [place] 1.017 (1.000-1.030) Urine Protein Negative (Negative) Urine Glucose (UA) Negative (Negative) Urine Ketones Negative (Negative) Urine Blood Negative (Negative) Urine Nitrite Negative (Negative) Urine Bilirubin Negative (Negative) Urine Urobilinogen Negative (Negative) Ur Leukocyte Esterase Negative (Negative) Imaging Data Radiologist's Impression: Radiology results as stated below per my review and the radiologist's interpretation: XR chest 1V portable CLINICAL HISTORY: fall trauma COMPARISON STUDY: 05/19/2019 FINDINGS: The bones soft tissues and hemidiaphragms are normal. The cardiomediastinal silhouette is normal. The lungs are clear. The pulmonary vasculature is normal. IMPRESSION: Negative chest. The above report was generated using voice recognition software. It may contain grammatical, syntax or spelling errors. Electronically signed by: Duran Medrano M.D. 09/14/2019 3:02 PM ADDENDUM Note is made of a possible unilateral cortical defect of the proximal femoral shaft left hip. This is best seen on the femoral images of the same date. Electronically signed by: Duran Medrano M.D. 09/14/2019 3:02 PM ADDENDUM END XR hip LT 2V w pelvis CLINICAL HISTORY: l hip pain pain COMPARISON: 05/27/2019 DISCUSSION: Bilateral hip arthroplasties. Moderate degenerative change of the bony structures throughout. No well-defined fracture. Could contact between prosthetic bilaterally and underlying bone. There is no evidence for soft tissue swelling. IMPRESSION: No acute process post bilateral total hip arthroplasties. The above report was generated using voice recognition software. It may contain grammatical, syntax or spelling errors. Electronically signed by: Duran Medrano M.D. 09/14/2019 2:56 PM XR femur LT 2V routine CLINICAL HISTORY: l femur pain COMPARISON: None. DISCUSSION: Slight incomplete cortical defect lateral aspect proximal left femoral shaft. This is immediately inferior to the greater trochanter. Study is otherwise negative for an additional acute bony abnormality. Total left hip arthroplasty in good position. There is no evidence for soft tissue swelling. IMPRESSION: Possible lateral cortical fracture proximal femoral shaft. Total left hip arthroplasty in good position. The above report was generated using voice recognition software. It may contain grammatical, syntax or spelling errors. Electronically signed by: Duran Medrano M.D. 09/14/2019 3:[address] head/brain wo con CT DOSE: 537.48 mGy.cm HISTORY: Trauma fall hit head on Xa inhibitor TECHNIQUE: Multiaxial CT images of the head were performed without the use of intravenous contrast. A dose lowering technique was utilized adhering to the principles of ALARA. Comparison: 07/09/2019 Findings: The paranasal sinuses and mastoid air cells are clear. The calvarium and skull base are intact. The ventricles and sulci are within normal limits. There is no mass, hematoma, midline shift, or acute infarct. Unchanged exam compared to the prior study. Stable right craniotomy procedure. No evidence for an acute intracranial abnormality. Impression: Chronic and postoperative change. No acute process. No change from the prior exam. The above report was generated using voice recognition software. It may contain grammatical, syntax or spelling errors. Electronically signed by: Duran Medraon M.D. 09/14/2019 2:[address] hip LT wo con CT DOSE: 604.35 mGy.cm HISTORY: Fracture per IM ? l hip fx of listhesis TECHNIQUE: Multiaxial CT images of the left hip were performed and reformatted in the sagittal and coronal plane without the use of contrast. A dose lowering technique was utilized adhering to the principles of ALARA. COMPARISON: 05/27/2019 FINDINGS: Interval development of a cortical fracture of the proximal femoral shaft at the level of the mid left hip metallic prosthetic. This is seen inferior to the intertrochanteric region. This is considered nondisplaced. No evidence for dislocation. This study is compromised by metallic artifact from the patient's total left hip prosthetic. The acetabular prosthetic is intact. IMPRESSION: 1. Total left hip prosthetic in position.. 2. Fracture of the proximal femoral cortex surrounding the mid femoral prosthetic immediately inferior to the intertrochanteric line. The above report was generated using voice recognition software. It may contain grammatical, syntax or spelling errors. Electronically signed by: Duran Medrano M.D. 09/14/2019 4:22 PM ECG Data Attestation: I personally reviewed and interpreted this ECG as follows: Indication: + other (hip fracture ) Rate (beats per minute): 59 Rhythm: + sinus bradycardia ECG Intervals/blocks: + Normal QT ECG [place]: + Normal ECG ST segments: + T-wave inversions (inferior) ECG Findings: + Other (poor baseline); no PVCs Blood Pressure Blood Pressure Findings: Elevated blood pressure Blood Pressure Disposition: elevated BP felt to be situational MDM Narrative Patient is a 74-year-old female with a past medical history of CVA and 2 hip replacements that presents following a mechanical fall onto her left hip. Hip is held in flexion and she is unable to walk on it. She notes that she did hit her head and she does take a 10 a inhibitor. No significant headache. No neck pain. IV was established blood work was obtained and showed no significant leukocytosis or anemia. INR was unremarkable. BMP along with LFTs bilirubin was unremarkable. Urine was negative. CT head showed no acute pathology. X- ray of the pelvis hip and femur shows fracture left proximal femur involving the prosthesis. Patient was given IV morphine 8 mg and given PRN medications as well. EKG was unremarkable. Chest x-ray with no focal infiltrate. Patient was updated bedside. Discussed with orthopedics and the hospitalist. Hospitalist requested CT of the left hip patient was updated will be admitted for fracture of the left femur next to the prosthesis. Impression & Plan Closed fracture of left hip, Fall, History of CVA (cerebrovascular accident) Discharge Plan Visit Data Chief Complaint: Hip Pain Stated Complaint: fall/ L hip pain ED Provider: Sal Luciano Discharge Problem: Closed fracture of left hip, Fall, History of CVA (cerebrovascular accident) Patient Disposition: Being Evaluated by Hospitalist Discharge Instructions Interventions: ED Discharge Assessment Last Done: 09/14/19 17:00 Discharge Problem: Closed fracture of left hip Qualifiers: Encounter type: initial encounter Qualified Code(s): S72.002A - Fracture of uns pecified part of neck of left femur, initial encounter for closed fracture Fall Qualifiers: Encounter type: initial encounter Qualified Code(s): W19.XXXA - Unspecified fall, initial encounter The scribe's documentation has been prepared under my direction and personally reviewed by me in its entirety. I confirm that the note above accurately reflects all work, treatment, procedures, and medical decision making performed by me.
[2019-09-14 16:14] LABS: Bilirubin Direct 0.2 mg/dl (0-0.2)
--- NOTE | 2019-09-14 16:23 | CT Scan Report ---
CT hip LT wo con CT DOSE: 604.35 mGy.cm HISTORY: Fracture per IM ? l hip fx of listhesis TECHNIQUE: Multiaxial CT images of the left hip were performed and reformatted in the sagittal and co yves plane without the use of contrast. A dose lowering technique was utilized adhering to the prin ciples of ARIAN. COMPARISON: 05/27/2019 FINDINGS: Interval development of a cortical fracture of the proximal femoral shaft at the level of t he mid left hip metallic prosthetic. This is seen inferior to the intertrochanteric region. This is c onsidered nondisplaced. No evidence for dislocation. This study is compromised by metallic artifact from the patient's total left hip prosthetic. The acetabular prosthetic is intact. IMPRESSION: 1. Total left hip prosthetic in position.. 2. Fracture of the proximal femoral cortex surrounding the mid femoral prosthetic immediately inferio r to the intertrochanteric line. The above report was generated using voice recognition software. It may contain grammatical, syntax or spelling errors. Electronically signed by: Duran Medrano M.D. 09/14/2019 4:22 PM
[2019-09-14] MEDS ORDERED: ACETAMINOPHEN 325 MG TAB PO PRN (17:19)
[2019-09-14] MEDS ORDERED: ONDANSETRON INJ 2 MG/ML 2 ML VIAL IV PRN (17:19)
[2019-09-14] MEDS: HYDROCORTISONE 10 MG TAB PO SCH (21:13)
[2019-09-14] MEDS: MoRPHine SULFATE 4 MG/ML 1 ML CARP\\VIAL IV PRN (21:13)
[2019-09-15] MEDS: LEVOTHYROXINE SODIUM 150 MCG TABLET PO SCH ×2 (05:15→08:17)
[2019-09-15 07:06] LABS: Hematocrit (blood only) 36.8 % (37-47); Hemoglobin 12.9 g/dL (12.0-16.0); Mean Corpuscular Hemoglobin 31.1 pg (25-34); Mean Corpuscular Hgb Conc 35.1 g/dL (32-36); Mean Corpuscular Volume 88.7 fL (80-100); Mean Platelet Volume 10.3 fL (7.4-10.4); Platelet Count 203 K/uL (130-400); RDW Coefficient of Variation 12.6 % (11.5-14.5); RDW Standard Deviation 40.5 fL (36.4-46.3); Red Blood Count 4.15 M/uL (4.2-5.4)
[2019-09-15 07:17] LABS: Prothrombin Time 10.3 Seconds (9.0-12.0)
[2019-09-15 07:41] LABS: Calcium 9.2 mg/dl (8.5-10.1); Creatinine Clr Calc Pharmacy 115.4 ml/min; Est GFR (African American) 113.6; Potassium 3.9 mmol/L (3.5-5.1)
[2019-09-15] MEDS: METOPROLOL SUCC 50MG EXT REL TAB PO SCH (08:17)
[2019-09-15] MEDS: HYDROCORTISONE 10 MG TAB PO SCH ×2 (08:17→21:08)
[2019-09-15] MEDS: PANTOprazole 40 MG TAB PO SCH (08:17)
[2019-09-15] MEDS: MoRPHine SULFATE 4 MG/ML 1 ML CARP\\VIAL IV PRN ×2 (08:21→21:09)
--- NOTE | 2019-09-15 09:39 | Cardiology Consultation ---
Date of Consultation September 15, 2019 Assessment & Plan (1) Paroxysmal atrial fibrillation: Mrs. 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 Dr. Arias has been consulted regarding management of her hip fracture. Patient has been doing well from a cardiac standpoint -- she has not had any recurrent A-fib to her knowledge nor has she had any palpitations since starting Toprol XL. She has not experienced any angina pectoris or anginal equivalent symptoms, overt signs or symptoms of heart failure, nor has she had any recurrent signs or symptoms of stroke or ministroke. Her Echocardiogram 01/2019 shows normal LV systolic function. Based on her functional status without limiting cardiopulmonary symptoms, normal LV systolic function, and normal EKG -- patient is an acceptable surgical risk if surgery is needed, provided that she takes her usual dose of Metoprolol on t he morning of surgery with sips of water. However if this is a non-surgical case -- we recommend that her Eliquis be restarted as soon as that decision is made. (2) HTN (hypertension): BP here and her home BP's have been elevated -- We recommend the following: -- Continue Toprol XL 100 mg daily. -- Add Amlodipine 5 mg daily. Present on Admission?: Yes (3) Dyslipidemia: -- Rosuvastatin 5 mg every week. -- Zetia 10 mg. Present on Admission?: Yes (4) History of CVA (cerebrovascular accident): (5) Chronic anticoagulation: As outlined above: -- If this is a non-surgical case - Resume Eliquis 5 mg b.i.d.. Present on Admission?: Yes (6) Closed fracture of left hip: -- As per Dr Arias in Orthopedic Surgery. Present on Admission?: Yes Supervising Physician Co-Signing Physician Notes Reinaldo Daley MD History of Present Illness Reason for Consultation: -- Paroxysmal Atrial Fibrillation. -- Hypertension. Requesting Physician: Alfie Montes De Oca DO Attending Physician: Reinaldo Daley MD History of Present Illness Mrs. 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 Dr. Arias has been consulted. Patient's last dose of Eliquis was on the morning of 09/14/2019 and is currently being held in case surgical intervention is necessary. Patient was initially diagnosed with PAF following her CVA in January 2019. She typically experienced palpitations with her A-Fib -- but has not experienced any palpitations or any A-Fib since being on Toprol XL. She is able to perform her usual activities of daily living without limiting cardiopulmonary symptoms. She specifically denies any exertional chest, pain, heaviness, tightness, or pressure. She denies any exertional neck, jaw, back, or arm pain. She denies any SOB, unusual BRUNNER, orthopnea, or pnd. No recent changes in her exertional tolerance. She denies any syncope or near syncope. Patient had an ECHOCARDIOGRAM on 02/06/2019 which showed: -- Normal LV size, wall motion, and systolic function. -- LVEF 55% to 60%. -- Mild concentric LVH. -- Basal septum is thickened and consistent with a sigmoid septum. -- Normal RV size and systolic function. -- Trace AI. Allergies Allergy/AdvReac Type Severity Reaction Status Date / Time Sulfa (Sulfonamide Allergy Unknown RASH Verified 09/14/19 15:04 Antibiotics) dobutamine AdvReac Severe ST Verified 09/14/19 15:04 ELEVATION, CHEST PAIN Home Medications Home Medications Medication Instructions Recorded Confirmed Type levothyroxine [Synthroid] 150 mcg PO QAM 01/31/19 09/14/19 History metformin 1,000 mg PO BID 01/31/19 09/14/19 History pantoprazole 40 mg PO QAM 01/31/19 09/14/19 History hydrocortisone 20 mg PO BID 03/10/19 09/14/19 History rosuvastatin 5 mg PO WK 03/10/19 09/14/19 History apixaban [Eliquis] 5 mg PO BID 05/19/19 09/14/19 History metoprolol succinate 100 mg PO QAM 05/19/19 09/14/19 History blood sugar diagnostic #10 ea 05/28/19 05/28/19 History lancets 30 gauge #25 ea 05/28/19 05/28/19 History ezetimibe 10 mg tablet 10 mg PO DAILY #90 tab 08/18/19 09/14/19 Rx risedronate 150 mg PO MONTHLY 09/14/19 09/14/19 History Patient History Medical History Abnormal mammogram Acid reflux disease (Acute) Acute CVA (cerebrovascular accident) Adrenal insufficiency Arm weakness (Inactive) Brain aneurysm Chest pressure CVA (cerebral vascular accident) Diabetes DVT prophylaxis Hyperlipidemia Hypertension Hypomagnesemia (Inactive) Hypopituitarism (Acute) Hypothyroid No significant past medical history Osteoporosis (Acute) Paresthesia (Inactive) Right sided weakness (Acute) Schatzki's ring of distal esophagus (Acute) Slurred speech (Acute) Surgical History H/O dilation and curettage (Acute) H/O total hip arthroplasty (Acute) History of hypophysectomy History of tonsillectomy (Acute) Hx of cataract surgery (Acute) Hx of tubal ligation (Acute) S/P aneurysm repair (Inactive) Family History Father Colon cancer Colorectal cancer Stroke Diabetes Myocardial infarction Mother ASCVD (arteriosclerotic cardiovascular disease) Lymphoma Father Colorectal cancer Grandfather (Paternal) Diabetes Daughter Cervical cancer Grandmother (Maternal) Cervical cancer Other Family history non-contributory Social History Preferred Language: Korean Communication Ability: Effective Animal Ride Manager Required: No Beliefs That Will Affect Care: None marital status: Current Living Situation: Spouse current occupational status: retired Other Information That Helps Us Care for You: No Feels Safe at Home: Yes Safety Concerns: Feels Safe At This Time Smoking Status: Never smoker Do You Dip or Chew Tobacco: No ; Second Hand Exposure: No ; Tobacco Cessation Education Requested by Patient: No Hx Alcohol Use: No Hx Substance Use: No Physical Exam Physical Exam: GENERAL: Patient in no acute distress. HEENT: Head is atraumatic, normocephalic. EOM's intact. Facies symmetric. No perioral cyanosis. NECK: No JVD. JVP is at the level of the clavicle sitting upright. Carotid upstrokes are + 2 bilaterally. No bruits are noted. CHEST/LUNGS: Clear to auscultation throughout all lung herrera. No wheezes, rales, or crackles. CVS: S1 and S2 are regular, bradycardic at 55 bpm. No obvious murmurs, gallops, or rubs. PMI is nonpalpable. No lifts, heaves, or thrills. No abdominal aortic or renal bruits. ABDOMINAL EXAM: Bowel sounds are present. No masses, organomegaly, or tenderness. EXTREMITIES: No clubbing or cyanosis. No edema. Intact posterior tibial and radial pulses bilaterally. NEUROLOGIC EXAM: Patient is awake, alert, and oriented. Pleasant and cooperative. Answers questions appropriately. Speech is clear. EKG on admission shows: -- Sinus bradycardia at 59 bpm. -- Otherwise normal tracing. Results & Data Vital Signs (Past 12 Hours) Vital Signs Temp Pulse Pulse Resp BP Pulse Ox 09/15/19 08:54 63 09/15/19 07:32 37.0 C 60 20 169/75 H 94 09/15/19 05:11 36.8 C 58 L 19 161/76 H 94 09/15/19 00:11 37.0 C 66 20 176/70 H 94 09/14/19 22:22 67 PG Care Time/CCT Total # of Minutes Spent Total Time Spent with Patient: Total time spent is greater than 50% in coordination of care (as documented) at patient's floor/unit and/or counseling patient: (1) Closed fracture of left hip Encounter type: initial encounter Qualified Code(s): S72.002A - Fracture of unspecified part of neck of left femur, initial encounter for closed fracture
[2019-09-15] MEDS ORDERED: APIXABAN 5 MG TABLET PO SCH (10:45)
--- NOTE | 2019-09-15 11:06 | Consultation Report ---
DATE: 09/15/2019 HISTORY OF PRESENT ILLNESS: The patient is an established patient of [facility]. I had done a right total hip replacement on her many years ago. She has had a left total hip replacement done in [place] several years ago. She was just in May for a checkup and had no issues with either hip and radiographs look fine. She has also recently had a stroke and is in the process of stroke rehab. Yesterday, she was making lunch, turned and apparently lost her balance and fell landing on her left side. She has some residual right upper extremity and possibly right lower extremity weakness from her stroke. She was brought to the Emergency Room where radiographs and CT scan showed a fracture. She is currently complaining of pain in the left hip area, which prevents her from straightening out or moving her left leg. She has not had a dislocation of her left hip. She denies any numbness and tingling. There is no pain in the left lower extremity, right lower extremity or both upper extremities. Her health history form is noted and reviewed. She has adrenal insufficiency, reflux, hypertension, history of stroke. She is on chronic anticoagulation. She has had bilateral total hip replacements and has had heart arrhythmia. She has also had a brain aneurysm. MEDICATIONS: Noted and reviewed including Eliquis, hydrocortisone, ezetimibe, metformin, metoprolol, pantoprazole, risedronate, rosuvastatin. ALLERGIES: SHE IS ALLERGIC TO SULFA AND DOBUTAMINE. SOCIAL HISTORY: She lives at home with her . PHYSICAL EXAMINATION: GENERAL: She is awake, alert and oriented. EXTREMITIES: Her left leg is held flexed and externally rotated. The leg can be returned to the neutral position and extended to about 45 degrees of hip and knee flexion. She has pain and difficulty lifting her leg up off of the bed. She can flex and extend her knee with 4+/5 strength limited by left hip pain. She has 5/5 ankle and toe plantar flexion and dorsiflexion strength on the left with 1+ dorsalis pedis pulse and normal sensation in the leg. Both lower extremities are nontender to palpation with the exception of tenderness around the left lateral hip area. There is no bruising or swelling and she has a well-healed lateral incision. Hip rotatory movements are limited on the left. She has full flexion of the right hip and knee with a normal appearing strength manually. DIAGNOSTIC DATA: X-rays of both hips and x-ray and CT scan of left hip showed the right hip is in good position without evidence of complication. There is a cortical irregularity just distal to the greater trochanter on the left hip. The stem is well fixed and is not loose. It is not shifted in position compared to recent radiographs. The acetabulum looks normal. There is no significant osteolysis and there is no evidence of dislocation. There is a peritrochanteric fracture, which is minimally displaced. The medial calcar and lesser trochanter appeared to be intact. Reports are noted. Her labs are noted and reviewed. IMPRESSION: 1. Status post bilateral total hip arthroplasties. 2. [employer] type A greater trochanteric fracture with minimal displacement with a well fixed stem and good bone stock. 3. History of right-sided CVA. 4. Multiple medical problems. PLAN: Findings are discussed with the patient. She has a [employer] A type fracture involving the greater trochanter region. This is involving an otherwise well fixed stable stem with good bone stock. The fracture is minimally displaced. I think that this is an injury that can be treated with nonsurgical methods of management. Limited hip movement, foot flat toe touch weightbearing. I do not think that surgery is necessary at this point. I will go ahead and advance her diet if it is okay with her medical doctors. Additionally, she would like to be on the Orthopedic floor, which I think would be reasonable if her medical condition permits. PT and OT have been consulted. We will consider use of a hip abduction brace, but for now, do not think it is necessary. She will need close monitoring and if anything changes, then surgery might be necessary. The CT scan in particular shows no involvement of the shaft proper of the femur. The patient will likely need acute care rehab or alf facility upon discharge. Her anticoagulation can be restarted. ROHIT
--- NOTE | 2019-09-15 11:08 | Hospitalist Progress Note ---
Date of Service September 15, 2019 Assessment & Plan (1) Closed fracture of left hip: periprosthetic fracture of left hip after fall Dr. Arias recommends conservative measures with PT/OT, possible brace will likely go to rehab pain management with Tylenol, Oxycodone PRN (2) Fall: mechanical fall, no loss of consciousness, admits she tripped no events on tele will downgrade to medical floor (3) Paroxysmal atrial fibrillation: continue Toprol 100mg daily resume Eliquis BID with no plans for surgery (4) H/O craniotomy: History of craniotomy for brain aneurysm. (5) Chronic anticoagulation: resume Eliquis. (6) History of CVA (cerebrovascular accident): (7) Ambulatory dysfunction: Will need PT OT aske CM to look into rehab (8) HTN (hypertension): Continue home medications. BP stable on Toprol (9) Dyslipidemia: Continue with statins (10) GERD (gastroesophageal reflux disease): Continue Protonix. (11) Hypothyroidism: Continue with Synthroid. (12) Hypopituitarism: Continue home medications. (13) Diabetes: type II, on Metformin at home hold Metformin diabetic diet, Novolog monitor for hypoglycemia (14) DVT prophylaxis: Eliquis Plan: transfer to medical floor PT/OT consults, look into rehab Subjective patient feeling well, minimal pain in left hip no fever/chills, no chest pain, no dyspnea she confirms that she just tripped and fell, did not lose consciousness discussed with Dr. Arias, no plans for OR, will treat conservatively discussed with cardiology, appreciate their input, will resume Eliquis patient eating well, no nausea updated family at the bedside reviewed labs, CBC and BMP stable Review of Systems Review of Systems: All systems reviewed & are unremarkable except as noted in HPI & below Musculoskeletal: + joint pain (left hip pain, especially if she lays flat, better flexed) and + limited range of motion (left hip due to pain); no back pain, no myalgia, no muscle weakness and no muscle atrophy Physical Exam Constitutional: WD/WN, vitals as above Eyes: PERRL, conjunctivae normal, anicteric sclerae ENMT: external ear and nose normal, oropharynx normal Neck: trachea midline, no thyromegaly Respiratory: normal respiratory effort, lungs clear to auscultation Cardiovascular: RRR, no murmur, no edema Gastrointestinal (Abdomen): normal bowel sounds, soft, nontender, no hepatosplenomegaly Musculoskeletal: no cyanosis or clubbing, extremities motor strength 5/5 Hip: + limited ROM of hip (left hip, flexed to 60 degrees in bed) Skin: no rashes, warm and dry Neurologic: patellar DTR's 2+ bilat, sensation intact and PERRL, EOMI, accommodation nl, no face palsy, no dysarthria Psychiatric: A+Ox3, euthymic affect Lymphatic: no cervical or axillary lymphadenopathy Results & Data Vital Signs (Past 12 Hours) Vital Signs Temp Pulse Pulse Resp BP Pulse Ox 09/15/19 08:54 63 09/15/19 07:32 37.0 C 60 20 169/75 H 94 09/15/19 05:11 36.8 C 58 L 19 161/76 H 94 09/15/19 00:11 37.0 C 66 20 176/70 H 94 Laboratory Results Laboratory Results - last 24 hr 09/15/19 09/15/19 09/15/19 06:35 06:35 06:35 WBC 5.80 RBC 4.15 L Hgb 12.9 Hct 36.8 L MCV 88.7 MCH 31.1 MCHC 35.1 RDW Std Deviation 40.5 RDW Coeff of Maureen 12.6 Plt Count 203 MPV 10.3 PT 10.3 INR 1.0 Sodium 138 Potassium 3.9 Chloride 105 Carbon Dioxide 25 Anion Gap 8.0 BUN 9 Creatinine 0.48 L Est Cr Clr Drug Dosing 115.4 Est GFR ( Amer) 113.6 Est GFR (Non-Af Amer) 98.0 BUN/Creatinine Ratio 19.0 Glucose 94 POC Glucose Calcium 9.2 09/15/19 09/15/19 09/15/19 12:22 17:05 20:38 WBC RBC Hgb Hct MCV MCH MCHC RDW Std Deviation RDW Coeff of Maureen Plt Count MPV PT INR Sodium Potassium Chloride Carbon Dioxide Anion Gap BUN Creatinine Est Cr Clr Drug Dosing Est GFR ( Amer) Est GFR (Non-Af Amer) BUN/Creatinine Ratio Glucose POC Glucose 130 H 137 H 126 H Calcium Medications Administered Current Inpatient Medications Acetaminophen (Tylenol) 650 mg PO Q4H PRN PRN Reason: Pain or Fever Stop: 10/14/19 17:18 Apixaban (Eliquis) 5 mg PO BID [facility] Stop: 10/15/19 11:14 Last Admin: 09/15/19 21:08 Dose: 5 mg Documented by: Hydrocortisone (Cortef) 20 mg PO BID [facility] Stop: 10/14/19 20:59 Last Admin: 09/15/19 21:08 Dose: 20 mg Documented by: Insulin Aspart (Novolog Flexpen) 0 units SC ACHS [facility] Stop: 10/15/19 16:29 Last Admin: 09/15/19 18:24 Dose: 3 units Documented by: Levothyroxine Sodium (Synthroid) 150 mcg PO DAILYBB [facility] Stop: 10/15/19 06:29 Last Admin: 09/15/19 08:17 Dose: 150 mcg Documented by: Metoprolol Succinate (Toprol Xl) 100 mg PO QAM [facility] Stop: 10/15/19 08:59 Last Admin: 09/15/19 08:17 Dose: 100 mg Documented by: Morphine Sulfate (Morphine Sulfate) 4 mg IV Q4H PRN PRN Reason: Pain Stop: 09/28/19 17:18 Last Admin: 09/15/19 21:09 Dose: 4 mg Documented by: Ondansetron HCl (Zofran) 4 mg IV Q6H PRN PRN Reason: Nausea Stop: 10/14/19 17:18 Oxycodone HCl (Roxicodone Immediate Rel) 5 mg PO Q4 PRN PRN Reason: Pain Stop: 09/29/19 18:08 Pantoprazole Sodium (Protonix) 40 mg PO QAM [facility] Stop: 10/15/19 08:59 Last Admin: 09/15/19 08:17 Dose: 40 mg Documented by: Rosuvastatin Calcium (Crestor) 5 mg PO Sa@0900 [facility] Stop: 10/20/19 08:59 PG Care Time/CCT Total # of Minutes Spent Total Time Spent with Patient: Total time spent is greater than 50% in coordination of care (as documented) at patient's floor/unit and/or counseling patient: (1) Fall Encounter type: initial encounter Qualified Code(s): W19.XXXA - Unspecified fall, initial encounter (2) Closed fracture of left hip Encounter type: initial encounter Qualified Code(s): S72.002A - Fracture of unspecified part of neck of left femur, initial encounter for closed fracture
[2019-09-15] MEDS: APIXABAN 5 MG TABLET PO SCH ×2 (11:52→21:08)
[2019-09-15] MEDS: INSULIN ASPART 100 UNITS/ML 3 ML PEN SC SCH ×2 (18:24→22:14)
[2019-09-16] MEDS: LEVOTHYROXINE SODIUM 150 MCG TABLET PO SCH (06:11)
[2019-09-16] MEDS: METOPROLOL SUCC 50MG EXT REL TAB PO SCH (07:38)
[2019-09-16] MEDS: HYDROCORTISONE 10 MG TAB PO SCH (07:38)
[2019-09-16] MEDS: PANTOprazole 40 MG TAB PO SCH (07:38)
[2019-09-16] MEDS: APIXABAN 5 MG TABLET PO SCH (07:38)
[2019-09-16] MEDS: OXYCODONE HCL IR 5 MG TAB (IMMEDIATE RELEASE) PO PRN ×2 (07:39→11:44)
[2019-09-16] MEDS: INSULIN ASPART 100 UNITS/ML 3 ML PEN SC SCH ×2 (09:23→13:17)
--- NOTE | 2019-09-16 10:24 | Orthopedic Progress Note ---
Date of Service September 16, 2019 Assessment & Plan (1) Closed fracture of left hip: Discussed case with Medicine service. They feel that patient is stable to be discharged to [facility] for rehab services Cont PT/OT while inpatient Non weight bearing on Left LE with walker assistance Plan is to treat hip fracture conservatively Orthopedically patient is stable for discharge to rehab facility Cont Cole for DVT prophylaxis Will relay information to Dr. Arias Subjective This very pleasant 74 yo F is doing well this AM. She states that she has minimal pain and is not able to move her Left LE and can place it flat on her bed. She states that she needs assistance transitioning and has difficulty using a walker due to chronic weakness in her Rt LE from a previous stroke. She denies CP, SOB, nausea, vomiting, fever, chills, sweats, numbness or tingling in the Left LE. Review of Systems Review of Systems: All systems reviewed & are unremarkable except as noted in HPI & below Physical Exam Physical Exam: Left LE: no pain with active dorsi/plantar flexion of foot. NV intact. Periph pulses easily palpable. Cap refill < 2 seconds. Calf soft and supple. Unable to perform SLRT. Mild pain in hip with very light log roll. Also mild pain with very light internal rotation. No pain with light passive external rotation. Able to actively extend knee to 0 and flex to 90 degrees. Results & Data Vital Signs (Past 12 Hours) Vital Signs Temp Pulse Resp BP Pulse Ox 09/16/19 07:20 37.1 C 62 14 140/83 94 09/16/19 00:00 37 C 61 16 132/67 92 Laboratory Results 09/16/19 09/15/19 09/15/19 Range/Units 08:20 20:38 17:05 POC Glucose 101 H 126 H 137 H (70-99) 09/15/19 Range/Units 12:22 POC Glucose 130 H (70-99) (1) Closed fracture of left hip Encounter type: initial encounter Qualified Code(s): S72.002A - Fracture of unspecified part of neck of left femur, initial encounter for closed fracture
--- NOTE | 2019-09-16 15:05 | Discharge Summary ---
Date of Service September 16, 2019 Admission HPI Per Admitting Provider The patient is 74-year-old female with history of CVA and right-sided weakness. Today she tripped and fell on the left side and was complaining of left hip pain and deformity. Further work-up done in the ER shows that patient has left hip fracture. Orthopedics was notified. She will be admitted for further evaluation and management. She was given morphine for pain control. She denies any loss of consciousness. No seizures. No bowel bladder incontinence. The patient is currently on Eliquis for paroxysmal atrial fibrillation. Principal Diagnosis Left periprosthetic hip fracture Discharge Exam Constitutional WD/WN, vitals as above Eyes PERRL, conjunctivae normal, anicteric sclerae ENMT external ear and nose normal, oropharynx normal Neck trachea midline, no thyromegaly Respiratory normal respiratory effort, lungs clear to auscultation Cardiovascular RRR, no murmur, no edema Gastrointestinal (Abdomen) normal bowel sounds, soft, nontender, no hepatosplenomegaly Musculoskeletal no cyanosis or clubbing, extremities motor strength 5/5 Hip: + limited ROM of hip (left hip, flexed to 60 degrees in bed) Skin no rashes, warm and dry Neurologic patellar DTR's 2+ bilat, sensation intact and PERRL, EOMI, accommodation nl, no face palsy, no dysarthria Psychiatric A+Ox3, euthymic affect Lymphatic no cervical or axillary lymphadenopathy Discharge Data Allergies Allergy/AdvReac Type Severity Reaction Status Date / Time Sulfa (Sulfonamide Allergy Unknown RASH Verified 09/14/19 15:04 Antibiotics) dobutamine AdvReac Severe ST Verified 09/14/19 15:04 ELEVATION, CHEST PAIN Consultations 09/14/19 15:11 ED Decision to Admit Stat 09/14/19 17:19 Consult Cardiology Routine 09/15/19 07:54 Consult Orthopedic Surgery Routine Procedures Performed Operation Date: 09/16/19 11:50 <No data on this case meets the specified criteria> Ordered Studies 09/14/19 13:09 CT head/brain wo con Stat 09/14/19 15:27 CT hip LT wo con Stat Hospital Course (1) Closed fracture of left hip: periprosthetic fracture of left hip after fall Dr. Arias recommends conservative measures with PT/OT strict NWB on left leg until specified otherwise by Dr. Arias use rolling walker at all times will d/c to [facility] for rehab today pain management with Tylenol, Oxycodone PRN follow up with Dr. Arias in two weeks (2) Fall: mechanical fall, no loss of consciousness, admits she tripped no events on tele will downgrade to medical floor (3) Paroxysmal atrial fibrillation: continue Toprol 100mg daily continue Eliquis BID with no plans for surgery (4) H/O craniotomy: History of craniotomy for brain aneurysm. (5) Chronic anticoagulation: resume Eliquis. (6) History of CVA (cerebrovascular accident): (7) Ambulatory dysfunction: Will need PT OT approved for [facility] (8) HTN (hypertension): Continue home medications. BP stable on Toprol (9) Dyslipidemia: Continue with statins (10) GERD (gastroesophageal reflux disease): Continue Protonix. (11) Hypothyroidism: Continue with Synthroid. (12) Hypopituitarism: Continue home medications. (13) Diabetes: type II, resume Metformin on d/c diabetic diet, Novolog SS while inpatient monitor for hypoglycemia (14) DVT prophylaxis: Eliquis Total Time Total Time Spent Total Time Spent (In Minutes): 32 minutes Total Time Includes: Examination of the Patient, Discharge Planning, Medication Reconciliation, Communication With Other Providers ([facility]) and Other (discussed with patient's family) Discharge Plan Discharge Items Patient Disposition: Transfer Inpatient Rehab Fac Reason For Visit: LEFT HIP FRACTURE Discharge Diagnosis: Left periprosthetic hip fracture Condition on Discharge: Good Goals: improve strength and mobility improve pain control Activity: Per Instructions section Lifting: None Bathing: No limitations Exercise/Sports: Gradually increase as tolerated Weightbearing: Left non-weightbearing Weightbearing Comment: left NWB until specified otherwise by Dr. Arias Non-emergency contact: Primary Care Provider and Surgeon Call non-emergency contact if: you have any medication questions, your symptoms worsen, your pain is not controlled, your pain is worsening and you have a fever Follow-up/Referrals: Cristobal Gamino MD [Primary Care Provider] - Diet: Carb Consistent or DM2 and Heart Healthy Addtl Attending Provider Instructions: Medications: no changes to chronic medications - OXYCODONE: use every 4 hours as needed for pain, can use Tylenol first for milder option Left periprosthetic hip fracture evaluated by Dr. Arias who is her orthopedic surgeon he recommends a non-surgical approach will be strict non-weight bearing on left leg until specified otherwise by Dr. Arias use rolling walker, can perform full ROM exercises use Oxycodone for any breakthrough pain control FOLLOW UP - recommend follow up with Dr. Arias in two weeks, please call for appt Pending Studies at Discharge: No Stand-Alone Forms: My [facility] Skilled Items Patient informed of condition?: Yes DNR: No Discharge Level of Care: Acute rehab Communicable Disease: No Discharge Prognosis: Stable Lines: None Urinary Catheter: No Medications and DC Order Prescriptions: New oxycodone 5 mg Tablet 5 mg PO Q4 PRN (Reason: pain) 10 Days Qty: 30 RF: 0 Continued ezetimibe 10 mg tablet 10 mg PO DAILY Qty: 90 RF: 1 (DME) lancets [OneTouch Delica Lancets] 30 gauge misc See Dose Instructions .ROUTE .MEDSUPPLY Qty: 25 RF: 0 (DME) OneTouch Ultra Blue Test Strip strip See Dose Instructions .ROUTE .MEDSUPPLY Qty: 10 RF: 0 pantoprazole 40 mg tablet,delayed release (DR/EC) 40 mg PO QAM RF: 0 metformin 1,000 mg tablet 1,000 mg PO BID RF: 0 levothyroxine [Synthroid] 150 mcg Tablet 150 mcg PO QAM RF: 0 risedronate 150 mg tablet 150 mg PO MONTHLY RF: 0 hydrocortisone 10 mg Tablet 20 mg PO BID RF: 0 rosuvastatin 5 mg Tablet 5 mg PO WK RF: 0 metoprolol succinate 50 mg tablet extended release 24 hr 100 mg PO QAM RF: 0 Eliquis 5 mg tablet 5 mg PO BID RF: 0 Discharge Orders: Discharge Order (Routine); Ordered 09/16/19 Ordered By: Alfie Montes De Oca Admission Data Admit Date/Time: 09/14/19 15:50 Attending Provider: Alfie Montes De Oca Admit Provider: Michael Jimenez Primary Care Provider: Cristobal Gamino [facility] ; Michael [facility] ; Reinaldo Daley ; Rashi Boles Other Interventions: Discharge Summary Assessment (RN) Last Done: 09/16/19 13:20 DC Date/Time DO NOT enter until pt leaves facility: 09/16/19 13:58
[2019-09-20] MEDS ORDERED: ROSUVASTATIN CALCIUM 5 MG TAB PO SCH (09:00)
== END 2019-09-16 13:58 | DRG 536 ==
LOC: ED 12:44 → 2N 15:50 → SUATTDRO 15:50 → 2N 17:00 → 3N 09-15 11:07

== ENCOUNTER 2022-08-14 09:36 | Inpatient (IN) ==
--- NOTE | 2022-08-14 10:25 | Emergency Department Note ---
History of Present Illness General Chief complaint: Referred by Doctor Stated complaint: REF BY DOCTOR Time Seen by Provider: 08/14/22 10:11 Source: patient, family ( who is at the bedside), RN notes reviewed and old records reviewed Mode of arrival: ambulatory Limitations: no limitations History of Present Illness Maximum Pain Intensity: 0 This patient is 77-year-old female who was sent over from the health information technologist office after having significant bradycardia there she had a 2-1 AV block. She said that she has been following with Dr. Gaxiola and she was on Multaq recently they took her off because she was dizzy and having vomiting and she had the same episodes on flecainide she went there for follow-up today and though she was very bradycardic. She feels okay at present no chest pain minimal shortness of breath she feels slightly dizzy at times no nausea vomiting no abdominal pain no blood or melena stool. She had a stroke in the past and some mild right-sided residual weakness but that is unchanged she had COVID 10 days ago and took medication for this she said it was not Paxlovid Home Medications Medication Instructions Recorded Confirmed Type rosuvastatin 5 mg tablet 5 mg PO WK 03/10/19 08/10/22 History lancets 30 gauge (OneTouch Delica #25 ea 05/28/19 08/10/22 History Lancets) cholecalciferol (vitamin D3) 50 50 mcg PO HS 10/27/19 08/10/22 History mcg (2,000 unit) capsule cyanocobalamin (vitamin B-12) 1,000 mcg PO HS 10/27/19 08/10/22 History 1,000 mcg capsule multivitamin 1 tab PO HS 10/27/19 08/10/22 History calcium [calcium citrate] 1,200 mg PO HS 05/03/20 08/10/22 History OneTouch Ultra2 Meter #1 ea 04/26/21 08/10/22 Rx (blood-glucose meter) ezetimibe 10 mg tablet 10 mg PO QAM #90 tabs 11/22/21 08/10/22 Rx hydrocortisone 5 mg tablet See Rx Instructions PO BID 90 days 01/17/22 08/10/22 Rx #400 tabs losartan 100 mg tablet 100 mg PO QAM #90 tabs 01/27/22 08/10/22 Rx OneTouch Ultra Test (blood sugar #100 ea 04/12/22 08/10/22 Rx diagnostic) levothyroxine 100 mcg tablet 100 mcg PO QAM #90 tabs 04/12/22 08/10/22 Rx (Synthroid) pantoprazole 40 mg tablet,delayed See Rx Instructions .Route 04/16/22 08/10/22 Rx release .COMPLEX #90 tabs risedronate 150 mg tablet 150 mg PO MONTHLY #1 tab 07/10/22 08/10/22 Rx triamterene 37.5 1 tab PO DAILY #30 tabs 07/24/22 08/10/22 Rx mg-hydrochlorothiazide 25 mg tablet apixaban 5 mg tablet (Eliquis) 5 mg PO BID #180 tabs 08/07/22 08/10/22 Rx flecainide 100 mg tablet 100 mg PO Q12H #60 tabs 08/07/22 08/10/22 Rx metoprolol succinate 50 mg 50 mg PO DAILY #30 tabs 08/11/22 08/11/22 Rx tablet,extended release 24 hr Allergies Allergy/AdvReac Type Severity Reaction Status Date / Time Sulfa (Sulfonamide Allergy Mild RASH Verified 08/10/22 09:13 Antibiotics) dobutamine AdvReac Severe ST Verified 08/10/22 09:13 ELEVATION, CHEST PAIN Past Med/Surg History Medical History Brain aneurysm had surgery Closed fracture of left hip Diabetes type 2, controlled currently diet controlled, pt states she stopped taking metformin GERD (gastroesophageal reflux disease) Hyperlipidemia Hypertension Hypopituitarism Osteoporosis Paroxysmal atrial fibrillation takes eliquis Schatzki's ring of distal esophagus Seasonal allergies Sinus bradycardia SSS (sick sinus syndrome) Status post placement of implantable loop recorder Stroke 2019 - right side a little weak Vitamin D deficiency Surgical History H/O craniotomy H/O dilation and curettage H/O total hip arthroplasty right and left History of colonoscopy History of esophagogastroduodenoscopy (EGD) History of hypophysectomy History of tonsillectomy Hx of cataract surgery right and left Hx of tubal ligation Family History Father Colon cancer Diabetes Myocardial infarction Colorectal cancer Stroke Mother ASCVD (arteriosclerotic cardiovascular disease) Lymphoma Father Colorectal cancer Grandfather (Paternal) Diabetes Daughter Cervical cancer Grandmother (Maternal) Cervical cancer Other Family history non-contributory No family history of adverse response to anesthesia Denies family history of Crohn's disease Social History Smoking Status: Never smoker Second Hand Exposure: No; Hx Alcohol Use: No Hx Substance Use: No Preferred Language: Tanzanian Communication Ability: Effective Flight Mechanic Required: No Beliefs That Will Affect Care: None marital status: Current Living Situation: Spouse current occupational status: retired Feels Safe at Home: Yes Assistive Devices: None Review of Systems A total of 10 systems reviewed and were otherwise negative Physical Exam Vital Signs Vital Signs - 24 hr 08/14/22 09:46 08/14/22 10:06 08/14/22 10:30 Temperature 36.8 C Temperature Source Temporal Artery Scan Pulse Rate 40 L 42 L 41 L Pulse Rate from SpO2 Sensor 40 L 40 L Respiratory Rate 18 16 16 Blood Pressure 177/74 H 170/69 H 158/75 H Blood Pressure Mean 108 102 102 Pulse Oximetry 96 99 97 Oxygen Delivery Method Room Air Sepsis Recent Fever Within 48 Hours No Sepsis New/Unexplained Change in Mental Status No Sepsis Action Taken by Nursing No Action Required 08/14/22 11:01 Temperature Temperature Source Pulse Rate 39 L Pulse Rate from SpO2 Sensor 39 L Respiratory Rate 17 Blood Pressure 153/63 H Blood Pressure Mean 93 Pulse Oximetry 90 Oxygen Delivery Method Sepsis Recent Fever Within 48 Hours Sepsis New/Unexplained Change in Mental Status Sepsis Action Taken by Nursing General: Well developed well nourished older female in no acute distress, breathing comfortably on room air. Normal speech HEENT: Normal cephalic atraumatic. Pupils are equal round and reactive to light. Extraocular movements are intact. Oropharynx is pink with moist mucous membranes. No swelling of the mouth lips or tongue. Neck: Supple with a midline trachea. No meningeal signs or stiffness, no JVD or bruits. No Stridor. Chest: Clear to auscultation bilaterally. No wheezes or rhonchi. No increased work of breathing. Heart: Regular rate and rhythm without murmurs or gallops. Abdomen: Soft nontender, nondistended without rebound guarding or rigidity. Extremities: No cyanosis clubbing or edema. No calf tenderness or assymetry Spine/Back. Non tender to palpation. No CVA tenderness Skin: Good turgor without rashes. Neurologic exam: Cranial nerves two through 12 are intact. Motor and sensation are intact and symmetrical throughout. Medical Decision Making Differential Diagnosis Bradycardia, ischemia, anemia, electrolyte or metabolic abnormality, thyroid disease, infection, arrhythmia Medical Records Attestation: I reviewed the patient's medical records. Home Medications Current Medication List: was personally reviewed by me Laboratory Data Attestation: I reviewed the patient's lab results. Result diagrams: 08/14/22 10:00 08/14/22 10:00 Lab Results 08/14/22 08/14/22 08/14/22 Range/Units 10:00 10:00 10:00 WBC 8.10 (4.8-10.8) K/ul RBC 4.44 (3.93-5.22) M/uL Hgb 14.4 (12.0-16.0) g/dl Hct 41.4 (34.1-44.9) % MCV 93.2 (80.0-100.0) fL MCH 32.4 (25.0-34.0) pg MCHC 34.8 (32.0-36.0) g/dL RDW Std Deviation 39.7 (36.4-46.3) fL RDW Coeff of Maureen 11.7 (11.5-14.5) % Plt Count 263 (130-400) K/uL MPV 10.9 (9.4-12.3) fL Immature Gran % (Auto) 0.2 % Neut % (Auto) 57.8 % Lymph % (Auto) 32.6 % Childress % (Auto) 6.9 % Eos % (Auto) 2.3 % Baso % (Auto) 0.2 % Neut # (Auto) 4.67 (1.4-6.5) K/uL Lymph # (Auto) 2.64 (1.2-3.4) K/uL Childress # (Auto) 0.56 (0.24-0.82) K/uL Eos # (Auto) 0.19 (0-0.50) K/uL Baso # (Auto) 0.02 (0-0.2) K/uL Immature Gran # (Auto) 0.02 (0.00-0.02) K/uL PT 10.9 (9.0-12.0) Seconds INR 1.0 (0.9-1.1) APTT 27.0 (21.0-31.0) Seconds PTT Ratio 1.0 Sodium 141 (136-145) mmol/L Potassium 4.6 (3.5-5.1) mmol/L Chloride 103 (98-107) mmol/L Carbon Dioxide 30 (21-32) mmol/L Anion Gap 8 (3-11) BUN 21 (6-23) mg/dl Creatinine 1.03 (0.6-1.2) mg/dl Est Cr Clr Drug Dosing Not Reportable Est GFR ( Amer) 61.6 ml/min Est GFR (Non-Af Amer) 53.1 ml/min BUN/Creatinine Ratio 20.4 H (10-20) Glucose 111 H (70-99(Fasting)) mg/dl Calcium 10.0 (8.5-10.1) mg/dl Total Bilirubin 0.8 (0.2-1.0) mg/dl AST 15 (13-39) U/L ALT 17 (7-52) U/L Alkaline Phosphatase 64 (34-104) U/L Troponin I High Sens 5.1 (0-14) pg/ml Total Protein 7.1 (6.0-8.3) gm/dl Albumin 4.5 (3.4-5.0) gm/dl Globulin 2.6 (2.5-4.0) gm/dl Albumin/Globulin Ratio 1.7 (0.9-2) Lipase 22 (11-82) U/L TSH (0.300-4.500) uIu/ml Free T4 (0.61-1.60) ng/dl Lyme Disease IgG Ab (Negative) Lyme Disease IgM Ab (Negative) SARS-CoV-2, RNA, NAAT (NEGATIVE) 08/14/22 08/14/22 08/14/22 Range/Units 10:00 10:00 11:30 WBC (4.8-10.8) K/ul RBC (3.93-5.22) M/uL Hgb (12.0-16.0) g/dl Hct (34.1-44.9) % MCV (80.0-100.0) fL MCH (25.0-34.0) pg MCHC (32.0-36.0) g/dL RDW Std Deviation (36.4-46.3) fL RDW Coeff of Maureen (11.5-14.5) % Plt Count (130-400) K/uL MPV (9.4-12.3) fL Immature Gran % (Auto) % Neut % (Auto) % Lymph % (Auto) % Childress % (Auto) % Eos % (Auto) % Baso % (Auto) % Neut # (Auto) (1.4-6.5) K/uL Lymph # (Auto) (1.2-3.4) K/uL Childress # (Auto) (0.24-0.82) K/uL Eos # (Auto) (0-0.50) K/uL Baso # (Auto) (0-0.2) K/uL Immature Gran # (Auto) (0.00-0.02) K/uL PT (9.0-12.0) Seconds INR (0.9-1.1) APTT (21.0-31.0) Seconds PTT Ratio Sodium (136-145) mmol/L Potassium (3.5-5.1) mmol/L Chloride (98-107) mmol/L Carbon Dioxide (21-32) mmol/L Anion Gap (3-11) BUN (6-23) mg/dl Creatinine (0.6-1.2) mg/dl Est Cr Clr Drug Dosing Est GFR ( Amer) ml/min Est GFR (Non-Af Amer) ml/min BUN/Creatinine Ratio (10-20) Glucose (70-99(Fasting)) mg/dl Calcium (8.5-10.1) mg/dl Total Bilirubin (0.2-1.0) mg/dl AST (13-39) U/L ALT (7-52) U/L Alkaline Phosphatase (34-104) U/L Troponin I High Sens (0-14) pg/ml Total Protein (6.0-8.3) gm/dl Albumin (3.4-5.0) gm/dl Globulin (2.5-4.0) gm/dl Albumin/Globulin Ratio (0.9-2) Lipase (11-82) U/L TSH 0.023 L (0.300-4.500) uIu/ml Free T4 0.69 (0.61-1.60) ng/dl Lyme Disease IgG Ab Negative (Negative) Lyme Disease IgM Ab Negative (Negative) SARS-CoV-2, RNA, NAAT NEGATIVE (NEGATIVE) Imaging Data Attestation: I personally reviewed and interpreted this imaging study as follows: My Impression: Chest x-rayno acute infiltrate, failure, pneumothorax seen Radiologist's Impression: Chest X-Ray 08/14/22 10:27 XR chest 1V portable CLINICAL HISTORY: Chest Pain TECHNIQUE: Single frontal radiograph of the chest was obtained. Comparison: Comparison is made to chest radiograph 09/14/2019 FINDINGS: Previously seen loop recorder is no longer present. The cardiomediastinal silhouette is normal. The lungs are clear. No evidence of pleural effusion or pneumothorax. IMPRESSION: No acute chest disease. ACT 112: Negative or not required by law. Electronically signed by: Alfie Francis M.D. 08/14/2022 10:53 AM ECG Data Attestation: I personally reviewed and interpreted this ECG as follows: Indication: + weakness Rate (beats per minute): 45 Rhythm: + sinus bradycardia ECG Intervals/blocks: + Left bundle branch block (Incomplete), + Normal QT and + Normal TN ECG [place]: + Normal ECG ST segments: + Normal ST segments ECG Findings: no PACs or no PVCs Comparison ECG Date: from (08/14/22-in the office) Change: the following changes noted (Sinus bradycardia has replaced bradycardia with a 2-1 AV block) MDM Narrative This patient comes in as described above. She was sent over after having significant bradycardia in the office she is in the 30s however she is hypertensive with this. She has no chest pain or shortness of breath she has been feeling nauseated and dizzy off and on for some time so it is unclear whe ther this is associated with the low heart rate. Has been on multiple antiarrhythmic medications that they have been switching due to intermittent A. fib. She has no significant electrolyte or metabolic abnormality.. She is nothing to suggest acute ischemia. She has been hemodynamically stable thus far. Lyme titer was negative. Dr. Funk from cardiology did see her in the ER and once the medical team to admit her and they would likely put a pacemaker in her. Continuous cardiac monitoring: Order was placed in the EMR for continuous cardiac monitoring. Upon my interpretation the patient was noted be in sinus bradycardia significantly at 35 Impression & Plan Bradycardia, severe sinus, Paroxysmal atrial fibrillation, Current use of long term care phlebotomist anticoagulation, History of CVA (cerebrovascular accident), SSS (sick sinus syndrome), Lab test negative for COVID-19 virus Discharge Plan Visit Data Chief Complaint: Referred by Doctor Stated Complaint: REF BY DOCTOR ED Provider: Arnoldo Wu Discharge Problem: Bradycardia, severe sinus, Paroxysmal atrial fibrillation, Current use of long term care phlebotomist anticoagulation, History of CVA (cerebrovascular accident), SSS (sick sinus syndrome), Lab test negative for COVID-19 virus Forms Stand Alone Forms: My [facility] Prescriptions Prescriptions: No Action (DME) blood-glucose meter [place]OneTouch Ultra2 Meter[place] [facility] [place] Instructions .ROUTE .MEDSUPPLY Qty: 1 0RF Rx Instructions: use to test 1 time daily ezetimibe 10 mg tablet 10 mg PO QAM Qty: 90 3RF hydrocortisone 5 mg tablet See Rx Instructions PO BID 90 Days Qty: 400 3RF Rx Instructions: take 2 tabs in the Am and 1 tab 8 hrs later may double in times of stress PO twice a day; losartan 100 mg tablet 100 mg PO QAM Qty: 90 3RF pantoprazole 40 mg tablet,delayed release (DR/EC) See Rx Instructions .ROUTE .COMPLEX Qty: 90 2RF Dose Instruction: TAKE 1 TABLET BY MOUTH 30 MINUTES PRIOR TO BREAKFAST Rx Instructions: TAKE 1 TABLET BY MOUTH 30 MINUTES PRIOR TO BREAKFAST risedronate 150 mg tablet 150 mg PO MONTHLY Qty: 1 11RF flecainide 100 mg tablet 100 mg PO Q12H Qty: 60 2RF Eliquis 5 mg tablet 5 mg PO BID Qty: 180 3RF levothyroxine [Synthroid] 100 mcg tablet 100 mcg PO QAM Qty: 90 3RF Rx Instructions: BRAND NECESSARY (DME) OneTouch Ultra Test Strip See Rx Instructions .ROUTE .MEDSUPPLY Qty: 100 1RF Rx Instructions: test 1 time daily multivitamin tablet 1 tab PO HS cyanocobalamin (vitamin B-12) 1,000 mcg capsule 1,000 mcg PO HS cholecalciferol (vitamin D3) 50 mcg (2,000 unit) capsule 50 mcg PO HS calcium 1,200 mg PO HS Rx Instructions: 1200mg PO daily triamterene-hydrochlorothiazid 37.5-25 mg tablet 1 tab PO DAILY Qty: 30 2RF (DME) lancets [OneTouch Delica Lancets] 30 gauge misc See Dose Instructions .ROUTE .MEDSUPPLY Qty: 25 Rx Instructions: As directed metoprolol succinate 50 mg tablet extended release 24 hr 50 mg PO DAILY Qty: 30 3RF rosuvastatin 5 mg Tablet 5 mg PO WK Rx Instructions: saturdays Referrals Referrals: Cristobal Gamino MD [Primary Care Provider] -
[2022-08-14 10:46] LABS: Basophils # (auto) 0.02 K/uL (0-0.2); Basophils % (auto) 0.2 %; Eosinophils # (auto) 0.19 K/uL (0-0.50); Eosinophils % (auto) 2.3 %; Hematocrit (blood only) 41.4 % (34.1-44.9); Hemoglobin 14.4 g/dl (12.0-16.0); Immature Granulocytes # (auto) 0.02 K/uL (0.00-0.02); Immature Granulocytes % (auto) 0.2 %; Lymphocytes # (auto) 2.64 K/uL (1.2-3.4); Lymphocytes % (auto) 32.6 %; Mean Corpuscular Hemoglobin 32.4 pg (25.0-34.0); Mean Corpuscular Hgb Conc 34.8 g/dL (32.0-36.0); Mean Corpuscular Volume 93.2 fL (80.0-100.0); Mean Platelet Volume 10.9 fL (9.4-12.3); Monocytes # (auto) 0.56 K/uL (0.24-0.82); Monocytes % (auto) 6.9 %; Neutrophils # (auto) 4.67 K/uL (1.4-6.5); Neutrophils % (auto) 57.8 %; Platelet Count 263 K/uL (130-400); RDW Coefficient of Variation 11.7 % (11.5-14.5); RDW Standard Deviation 39.7 fL (36.4-46.3); Red Blood Count 4.44 M/uL (3.93-5.22)
[2022-08-14 10:54] LABS: Prothrombin Time 10.9 Seconds (9.0-12.0)
--- NOTE | 2022-08-14 10:54 | XRay Report ---
XR chest 1V portable CLINICAL HISTORY: Chest Pain TECHNIQUE: Single frontal radiograph of the chest was obtained. Comparison: Comparison is made to chest radiograph 09/14/2019 FINDINGS: Previously seen loop recorder is no longer present. The cardiomediastinal silhouette is normal. The l ungs are clear. No evidence of pleural effusion or pneumothorax. IMPRESSION: No acute chest disease. ACT 112: Negative or not required by law. Electronically signed by: Alfie Francis M.D. 08/14/2022 10:53 AM
[2022-08-14 11:01] LABS: Troponin I High Sensitivity 5.1 pg/ml (0-14)
[2022-08-14 11:11] LABS: Thyroid Stimulating Hormone 0.023 uIu/ml (0.300-4.500)
[2022-08-14 11:53] LABS: T4 Free Thyroxine 0.69 ng/dl (0.61-1.60)
[2022-08-14 11:55] LABS: Alanine Aminotransferase 17 U/L (7-52); Albumin Globulin Ratio 1.7 (0.9-2); Albumin Level 4.5 gm/dl (3.4-5.0); Alkaline Phosphatase 64 U/L (34-104); Anion Gap 8 (3-11); Aspartate Aminotransferase 15 U/L (13-39); BUN Creatinine Ratio 20.4 (10-20); Bilirubin,Total 0.8 mg/dl (0.2-1.0); Blood Urea Nitrogen 21 mg/dl (6-23); Carbon Dioxide 30 mmol/L (21-32); Chloride 103 mmol/L (98-107); Est GFR (African American) 61.6 ml/min; Est GFR (Non-African American) 53.1 ml/min; Globulin 2.6 gm/dl (2.5-4.0); Glucose 111 mg/dl (70-99(Fasting)); Lipase 22 U/L (11-82); Potassium 4.6 mmol/L (3.5-5.1); Sodium 141 mmol/L (136-145); Total Protein 7.1 gm/dl (6.0-8.3)
[2022-08-14 12:22] LABS: Lyme Ab IgG w/WB Rflx Negative (Negative); Lyme Ab IgM w/WB Rflx Negative (Negative)
--- NOTE | 2022-08-14 12:42 | History & Physical Report ---
Date of Service August 14, 2022 Assessment & Plan (1) SSS (sick sinus syndrome): Plan: Patient presents with symptomatic bradycardia in the setting of sick sinus syndrome with history of rapid atrial fibrillation and flutter in the past. Has a loop recorder in place. Here with symptomatic sinus bradycardia with rates in the 30s while on flecainide and recently reduced doses of Toprol-XL. Lyme titer negative, thyroid function normal with normal free T4 in the setting of central hypothyroidism -Admit to PCU for telemetry monitoring, atropine as needed for symptomatic bradycardia less than 30 bpm -Consult cardiology-plan for permanent pacemaker placement tomorrow, keep n.p.o. after midnight -Hold home flecainide, metoprolol, and Eliquis-last doses were the morning of 08/14 -Follow CBC, BMP, magnesium and keep electrolytes replete -Continue home doses of hydrocortisone and consider stress dose steroids around the time of procedure if any evidence of hypotension -Check echocardiogram (2) Abscess, earlobe: Plan: Right earlobe with simple incision and drainage performed after admission on 08/14. No wick left in place but good amount of purulent drainage was achieved No evidence of surrounding cellulitis -Wound culture sent to the lab-follow -Continue to apply topical bacitracin and daily dressing changes -No need for oral antibiotics unless evidence of cellulitis develops (3) Hypertension: Plan: Blood pressures are normal Holding home metoprolol for bradycardia as above -Continue home losartan and Dyazide (4) Chronic anticoagulation: Plan: Holding home Eliquis as above for pacemaker placement tomorrow (5) Paroxysmal atrial fibrillation: Plan: With a history of such Holding metoprolol, flecainide, and Eliquis as above Medication management as per cardiology after pacemaker placement (6) Diabetes type 2, controlled: Plan: Very well controlled and not even on medications at home Check hemoglobin A1c in the morning Accu-Cheks and NovoLog supplemental insulin as needed (7) Secondary adrenal insufficiency: Plan: 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 hydrocortisone and stress dose steroids as needed in the perioperative setting tomorrow (8) Central hypothyroidism: Plan: TSH mildly low but this is not reliable in the setting of central hypothyroidism. 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 once a week due to intolerance, continue Zetia (13) GERD (gastroesophageal reflux disease): Plan: Continue home Protonix Plan DVT prophylaxis-holding home Eliquis, SCDs applied Disposition-admit to PCU Full code Care discussed with at the bedside as well as cardiology. History of Present Illness Chief Complaint: Low heart rate Primary Care Provider: Cristobal Gamino MD This patient is a 77-year-old female history of HTN, dyslipidemia, DM 2, paroxysmal atrial fibrillation on Eliquis, SSS with loop recorder in place, hypopituitarism, GERD, brain aneurysm s/p craniotomy, Schatzki's ring, CVA, osteoporosis, vitamin D deficiency, and recent COVID-19 infection who presents to the ER with bradycardia. She was started on Multaq about 3 weeks ago and had symptoms of lightheadedness and fatigue and dizziness with that. This was then switched to flecainide and her metoprolol dose was decreased. She continued to have the same symptoms even on flecainide and was told to come in for an ECG today in the cardiology office. She was found to have bradycardia with heart rates in the 30s and was sent to the ER for further evaluation. She reports at rest she is not currently having any symptoms. She denies chest pains, headache, nausea or vomiting but did have some nausea with being on the antiarrhythmics in the last few weeks. No diarrhea or constipation. No abdominal pains. No recent fevers or chills. In the ER, her CBC and CMP were normal, troponin was normal. TSH low at 0.023 but free T4 normal at 0.69 and she does have central hypothyroidism so this is consistent with good control. Lyme titer negative. She was seen by cardiology here and plan is for pacemaker placement tomorrow. Allergies Allergy/AdvReac Type Severity Reaction Status Date / Time Sulfa (Sulfonamide Allergy Mild RASH Verified 08/14/22 15:41 Antibiotics) dobutamine AdvReac Severe ST Verified 08/14/22 15:41 ELEVATION, CHEST PAIN Home Medications Medication Instructions Recorded Confirmed Type rosuvastatin 5 mg tablet 5 mg PO WK 03/10/19 08/10/22 History lancets 30 gauge (OneTouch Delica #25 ea 05/28/19 08/10/22 History Lancets) cholecalciferol (vitamin D3) 50 50 mcg PO HS 10/27/19 08/10/22 History mcg (2,000 unit) capsule cyanocobalamin (vitamin B-12) 1,000 mcg PO HS 10/27/19 08/10/22 History 1,000 mcg capsule multivitamin 1 tab PO HS 10/27/19 08/10/22 History OneTouch Ultra2 Meter #1 ea 04/26/21 08/10/22 Rx (blood-glucose meter) ezetimibe 10 mg tablet 10 mg PO QAM #90 tabs 11/22/21 08/10/22 Rx losartan 100 mg tablet 100 mg PO QAM #90 tabs 01/27/22 08/10/22 Rx OneTouch Ultra Test (blood sugar #100 ea 04/12/22 08/10/22 Rx diagnostic) pantoprazole 40 mg tablet,delayed See Rx Instructions .Route 04/16/22 08/10/22 Rx release .COMPLEX #90 tabs risedronate 150 mg tablet 150 mg PO MONTHLY #1 tab 07/10/22 08/10/22 Rx triamterene 37.5 1 tab PO DAILY #30 tabs 07/24/22 08/10/22 Rx mg-hydrochlorothiazide 25 mg tablet apixaban 5 mg tablet (Eliquis) 5 mg PO BID #180 tabs 08/07/22 08/10/22 Rx flecainide 100 mg tablet 100 mg PO Q12H #60 tabs 08/07/22 08/10/22 Rx metoprolol succinate 50 mg 50 mg PO DAILY #30 tabs 08/11/22 08/11/22 Rx tablet,extended release 24 hr calcium citrate 200 mg (950 mg) 200 mg PO HS 08/14/22 08/14/22 History tablet hydrocortisone 5 mg tablet 5 mg PO .UD 08/14/22 08/14/22 History hydrocortisone 5 mg tablet 10 mg PO QAM 08/14/22 08/14/22 History levothyroxine 100 mcg tablet 100 mcg PO DAILYBB 08/14/22 08/14/22 History (Synthroid) Past Med/Surg History Medical History Brain aneurysm had surgery Closed fracture of left hip Diabetes type 2, controlled currently diet controlled, pt states she stopped taking metformin GERD (gastroesophageal reflux disease) Hyperlipidemia Hypertension Hypopituitarism Osteoporosis Paroxysmal atrial fibrillation takes eliquis Schatzki's ring of distal esophagus Seasonal allergies Sinus bradycardia SSS (sick sinus syndrome) Status post placement of implantable loop recorder Stroke 2019 - right side a little weak Vitamin D deficiency Surgical History H/O craniotomy H/O dilation and curettage H/O total hip arthroplasty right and left History of colonoscopy History of esophagogastroduodenoscopy (EGD) History of hypophysectomy History of tonsillectomy Hx of cataract surgery right and left Hx of tubal ligation Family History Father Colon cancer Diabetes Myocardial infarction Colorectal cancer Stroke Mother ASCVD (arteriosclerotic cardiovascular disease) Lymphoma Father Colorectal cancer Grandfather (Paternal) Diabetes Daughter Cervical cancer Grandmother (Maternal) Cervical cancer Other Family history non-contributory No family history of adverse response to anesthesia Denies family history of Crohn's disease Social History Smoking Status: Never smoker Second Hand Exposure: No; Hx Alcohol Use: No Hx Substance Use: No Preferred Language: Vietnamese Communication Ability: Effective Regional Loss Prevention Manager Required: No Beliefs That Will Affect Care: None marital status: Current Living Situation: Spouse current occupational status: retired Feels Safe at Home: Yes Assistive Devices: None Review of Systems Review of Systems: All systems reviewed & are unremarkable except as noted in HPI & below Patient reports painful lump behind right earlobe for the last couple of weeks, no fevers Physical Exam Constitutional: WD/WN, vitals as above Eyes: PERRL, conjunctivae normal, anicteric sclerae ENMT: external ear and nose normal, oropharynx normal Neck: trachea midline, no thyromegaly Respiratory: normal respiratory effort, lungs clear to auscultation Cardiovascular: Rate/Rhythm: regular rhythm and + bradycardic Heart Sounds: no murmur Vessels: dorsalis pedis pulses present Extremities: no edema Chest (Breasts): Chest: normal inspection of chest Gastrointestinal (Abdomen): normal bowel sounds, soft, nontender, no hepatosplenomegaly Musculoskeletal: Extremities: extremities normal to inspection; no cyanosis and no clubbing Skin: no rashes, warm and dry Right posterior earlobe with 0.5 cm fluctuant mass-after verbal informed consent obtained, the fluctuant mass was cleansed and sterilized with topical alcohol wipe. An 18-gauge needle was used to unroofed the abscess and a significant amount of purulent drainage was expressed- approximately 1 mL. Wound culture was sent. Bacitracin and bandage was applied afterwards. The patient tolerated the procedure well with very minimal blood loss. Neurologic: moves all extremities and awake; no focal motor deficits Psychiatric: A+Ox3, euthymic affect Lymphatic: no lymphedema Results & Data Results & Data ([facility]) Vital Signs (Past 12 Hours) Vital Signs Temp Pulse Resp BP Pulse Ox O2 Del Method 08/14/22 11:01 39 L 17 153/63 H 90 08/14/22 10:30 41 L 16 158/75 H 97 08/14/22 10:06 42 L 16 170/69 H 99 08/14/22 09:46 36.8 C 40 L 18 177/74 H 96 Room Air Laboratory Results 08/14/22 08/14/22 08/14/22 Range/Units 11:30 10:00 10:00 WBC (4.8-10.8) K/ul RBC (3.93-5.22) M/uL Hgb (12.0-16.0) g/dl Hct (34.1-44.9) % MCV (80.0-100.0) fL MCH (25.0-34.0) pg MCHC (32.0-36.0) g/dL RDW Std Deviation (36.4-46.3) fL RDW Coeff of Maureen (11.5-14.5) % Plt Count (130-400) K/uL MPV (9.4-12.3) fL Immature Gran % (Auto) % Neut % (Auto) % Lymph % (Auto) % [place] % (Auto) % Eos % (Auto) % Baso % (Auto) % Neut # (Auto) (1.4-6.5) K/uL Lymph # (Auto) (1.2-3.4) K/uL [place] # (Auto) (0.24-0.82) K/uL Eos # (Auto) (0-0.50) K/uL Baso # (Auto) (0-0.2) K/uL Immature Gran # (Auto) (0.00-0.02) K/uL PT (9.0-12.0) Seconds INR (0.9-1.1) APTT (21.0-31.0) Seconds PTT Ratio Sodium (136-145) mmol/L Potassium (3.5-5.1) mmol/L Chloride (98-107) mmol/L Carbon Dioxide (21-32) mmol/L Anion Gap (3-11) BUN (6-23) mg/dl Creatinine (0.6-1.2) mg/dl Est Cr Clr Drug Dosing Est GFR ( Amer) ml/min Est GFR (Non-Af Amer) ml/min BUN/Creatinine Ratio (10-20) Glucose (70-99(Fasting)) mg/dl Calcium (8.5-10.1) mg/dl Total Bilirubin (0.2-1.0) mg/dl AST (13-39) U/L ALT (7-52) U/L Alkaline Phosphatase (34-104) U/L Troponin I High Sens (0-14) pg/ml Total Protein (6.0-8.3) gm/dl Albumin (3.4-5.0) gm/dl Globulin (2.5-4.0) gm/dl Albumin/Globulin Ratio (0.9-2) Lipase (11-82) U/L TSH 0.023 L (0.300-4.500) uIu/ml Free T4 0.69 (0.61-1.60) ng/dl Lyme Disease IgG Ab Negative (Negative) Lyme Disease IgM Ab Negative (Negative) SARS-CoV-2, RNA, NAAT NEGATIVE (NEGATIVE) 08/14/22 08/14/22 08/14/22 Range/Units 10:00 10:00 10:00 WBC 8.10 (4.8-10.8) K/ul RBC 4.44 (3.93-5.22) M/uL Hgb 14.4 (12.0-16.0) g/dl Hct 41.4 (34.1-44.9) % MCV 93.2 (80.0-100.0) fL MCH 32.4 (25.0-34.0) pg MCHC 34.8 (32.0-36.0) g/dL RDW Std Deviation 39.7 (36.4-46.3) fL RDW Coeff of Maureen 11.7 (11.5-14.5) % Plt Count 263 (130-400) K/uL MPV 10.9 (9.4-12.3) fL Immature Gran % (Auto) 0.2 % Neut % (Auto) 57.8 % Lymph % (Auto) 32.6 % [place] % (Auto) 6.9 % Eos % (Auto) 2.3 % Baso % (Auto) 0.2 % Neut # (Auto) 4.67 (1.4-6.5) K/uL Lymph # (Auto) 2.64 (1.2-3.4) K/uL [place] # (Auto) 0.56 (0.24-0.82) K/uL Eos # (Auto) 0.19 (0-0.50) K/uL Baso # (Auto) 0.02 (0-0.2) K/uL Immature Gran # (Auto) 0.02 (0.00-0.02) K/uL PT 10.9 (9.0-12.0) Seconds INR 1.0 (0.9-1.1) APTT 27.0 (21.0-31.0) Seconds PTT Ratio 1.0 Sodium 141 (136-145) mmol/L Potassium 4.6 (3.5-5.1) mmol/L Chloride 103 (98-107) mmol/L Carbon Dioxide 30 (21-32) mmol/L Anion Gap 8 (3-11) BUN 21 (6-23) mg/dl Creatinine 1.03 (0.6-1.2) mg/dl Est Cr Clr Drug Dosing Not Reportable Est GFR ( Amer) 61.6 ml/min Est GFR (Non-Af Amer) 53.1 ml/min BUN/Creatinine Ratio 20.4 H (10-20) Glucose 111 H (70-99(Fasting)) mg/dl Calcium 10.0 (8.5-10.1) mg/dl Total Bilirubin 0.8 (0.2-1.0) mg/dl AST 15 (13-39) U/L ALT 17 (7-52) U/L Alkaline Phosphatase 64 (34-104) U/L Troponin I High Sens 5.1 (0-14) pg/ml Total Protein 7.1 (6.0-8.3) gm/dl Albumin 4.5 (3.4-5.0) gm/dl Globulin 2.6 (2.5-4.0) gm/dl Albumin/Globulin Ratio 1.7 (0.9-2) Lipase 22 (11-82) U/L TSH (0.300-4.500) uIu/ml Free T4 (0.61-1.60) ng/dl Lyme Disease IgG Ab (Negative) Lyme Disease IgM Ab (Negative) SARS-CoV-2, RNA, NAAT (NEGATIVE) Diagnostic Findings Chest x-ray image personally reviewed by me and agree with following report: Chest X-Ray 08/14/22 10:27 XR chest 1V portable CLINICAL HISTORY: Chest Pain TECHNIQUE: Single frontal radiograph of the chest was obtained. Comparison: Comparison is made to chest radiograph 09/14/2019 FINDINGS: Previously seen loop recorder is no longer present. The cardiomediastinal silhouette is normal. The lungs are clear. No evidence of pleural effusion or pneumothorax. IMPRESSION: No acute chest disease. ACT 112: Negative or not required by law. Electronically signed by: Alfie Francis M.D. 08/14/2022 10:53 AM ECG Additional Comments: ECG on 08/14/2022 at 9:18 AM from outpatient office with marked sinus bradycardia with first-degree AV block with PACs, rate 35, no ischemic changes Code Status & VTE Plan Code Status Full code VTE Prophylaxis Plan VTE Prophylaxis will be ordered: Yes PG Care Time/CCT Total # of Minutes Spent Total Time Spent with Patient: Total time spent is greater than 50% in coordination of care (as documented) at patient's floor/unit and/or counseling patient: Coding Level of Care Code 22629 Initial Inpt Care Lvl 3 Diagnoses SSS (sick sinus syndrome) I49.5 Abscess, earlobe H60.00 Hypertension I10 Hypertension type: primary hypertension Chronic anticoagulation Z79.01 Paroxysmal atrial fibrillation I48.0 Diabetes type 2, controlled E11.9 Secondary adrenal insufficiency E27.49 Central hypothyroidism E03.8 History of CVA (cerebrovascular accident) Z86.73 Osteoporosis M81.0 Hypopituitarism E23.0 Dyslipidemia E78.5 GERD (gastroesophageal reflux disease) K21.9 Esophagitis presence: without esophagitis (1) GERD (gastroesophageal reflux disease) Esophagitis presence: without esophagitis Qualified Code(s): K21.9 - Gastro- esophageal reflux disease without esophagitis (2) Hypertension Hypertension type: primary hypertension Qualified Code(s): I10 - Essential (primary) hypertension
--- NOTE | 2022-08-14 15:40 | Cardiology Consultation ---
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 Tachybradycardia syndrome: With titration of medications to help suppress paroxysmal atrial fibrillation, she has been more symptomatic with significant bradycardia with heart rates in the 30s noted on ECGs. Recommend pacemaker implantation. Contacted Dr. Jimenez of electrophysiology and will ultimately defer pacemaker decision to EP. She is stable currently while in bed. Pacemaker plac ement is not urgent. Remain in bed. N.p.o. after midnight. Hold Eliquis. Hold beta-laura. Discontinue flecainide. Echo ordered. 2. Sinus bradycardia: Discontinue flecainide and hold beta-laura. Can resume beta-laura and consider antiarrhythmic therapy after pacemaker placement. 3. Paroxysmal atrial fibrillation: Apparently more frequent episodes noted on loop recorder interrogation as per Dr. Daley's most recent report. Hold Eliquis for stroke risk reduction in anticipation of pacemaker placement. Rate control versus rhythm control strategy can be determined following pacemaker placement. 4. Hypertension: She has been both normotensive and hypertensive. Avoid AV bette blocking agents for now as above. Most recent blood pressure well controlled. 5. Disposition: Patient care communicated with Dr. Wu of the emergency department and Dr. Brower of the admitting hospitalist service. Discussed patient care with Dr. Caceres of electrophysiology. Highly complex medical issues. Thank you for allowing me to participate in the care of your patient. Please call for any other questions or concerns. Sincerely, Ant Funk M.D. History of Present Illness Reason for Consultation: Symptomatic bradycardia Requesting Physician: Dr. Wu Attending Physician: Dr. Wu History of Present Illness Mrs. Cantu is a very pleasant 77-year-old female with a history significant for tachybradycardia syndrome, hypertension, dyslipidemia, type 2 diabetes, paroxysmal atrial fibrillation, loop recorder implantation, Schatzki's ring s/p dilation, right MCA aneurysm s/p craniotomy and clip reconstruction (05/08/19) and stroke (2019). She also has a history of pituitary surgery in 1984 and radiation therapy in 1988. Her primary alligator hunter is Dr. Daley. She was last seen by Dr. Daley on 07/24/2022. She was noted to have paroxysmal atrial fibrillation with increasing frequency and while in atrial fibrillation, rapid ventricular response. She was also noted to have continued bradycardia with heart rates typically between 40 and 50 based on loop recorder findings at that time. In an attempt to help suppress the A. fib with RVR, dronedarone was initiated and metoprolol succinate was decreased from 150 mg daily to 100 mg daily. She states that she did not tolerate Multaq due to lightheadedness/dizziness, nausea, fatigue, and overall feeling unwell. Multaq was discontinued approximately 1 week ago and flecainide was initiated 100 mg every 12 hours. She states that she continued to feel poorly. Due to bradycardia while in sinus rhythm, metoprolol was reduced to 50 mg daily approximately 1 week ago as well. She continues to have the lightheadedness, nausea, fatigue. At times, she feels near syncope, even at rest. She denies actual syncope. She notes mild dyspnea with exertion since the initiation of Multaq and then flecainide. She states that she had not been feeling A. fib with RVR but since beta-laura was reduced, she felt her heart racing last night for approximately 1 hour. This morning she presented to the cardiology outpatient office for an ECG and was noted to have a heart rate in the 30s. The rhythm appeared to be sinus bradycardia at 35 bpm with possible blocked PACs. When she arrived at the emergency department, her ECG demonstrated sinus bradycardia. She denies chest pain, shortness of breath at rest, orthopnea, edema, syncope, or bleeding. She took metoprolol succinate 50 mg, flecainide 100 mg, and Eliquis 5 mg this morning before coming to the hospital. She has a history of myalgias on regular statin therapy but is tolerating Crestor 5 mg once per week. Review of systems: As above. Review of systems otherwise negative/unremarkable. Family history: Noncontributory. Social history: She denies tobacco, alcohol, or drug abuse. She lives at home with her . They have 3 children. She has grandchildren. Her was present at the bedside in the emergency department. Allergies Allergy/AdvReac Type Severity Reaction Status Date / Time Sulfa (Sulfonamide Allergy Mild RASH Verified 08/14/22 15:41 Antibiotics) dobutamine AdvReac Severe ST Verified 08/14/22 15:41 ELEVATION, CHEST PAIN Home Medications Medication Instructions Recorded Confirmed Type rosuvastatin 5 mg tablet 5 mg PO WK 03/10/19 08/10/22 History lancets 30 gauge (OneTouch Delica #25 ea 05/28/19 08/10/22 History Lancets) cholecalciferol (vitamin D3) 50 50 mcg PO HS 10/27/19 08/10/22 History mcg (2,000 unit) capsule cyanocobalamin (vitamin B-12) 1,000 mcg PO HS 10/27/19 08/10/22 History 1,000 mcg capsule multivitamin 1 tab PO HS 10/27/19 08/10/22 History OneTouch Ultra2 Meter #1 ea 04/26/21 08/10/22 Rx (blood-glucose meter) ezetimibe 10 mg tablet 10 mg PO QAM #90 tabs 11/22/21 08/10/22 Rx losartan 100 mg tablet 100 mg PO QAM #90 tabs 01/27/22 08/10/22 Rx OneTouch Ultra Test (blood sugar #100 ea 04/12/22 08/10/22 Rx diagnostic) pantoprazole 40 mg tablet,delayed See Rx Instructions .Route 04/16/22 08/10/22 Rx release .COMPLEX #90 tabs risedronate 150 mg tablet 150 mg PO MONTHLY #1 tab 07/10/22 08/10/22 Rx triamterene 37.5 1 tab PO DAILY #30 tabs 07/24/22 08/10/22 Rx mg-hydrochlorothiazide 25 mg tablet apixaban 5 mg tablet (Eliquis) 5 mg PO BID #180 tabs 08/07/22 08/10/22 Rx flecainide 100 mg tablet 100 mg PO Q12H #60 tabs 08/07/22 08/10/22 Rx metoprolol succinate 50 mg 50 mg PO DAILY #30 tabs 08/11/22 08/11/22 Rx tablet,extended release 24 hr calcium citrate 200 mg (950 mg) 200 mg PO HS 08/14/22 08/14/22 History tablet hydrocortisone 5 mg tablet 5 mg PO .UD 08/14/22 08/14/22 History hydrocortisone 5 mg tablet 10 mg PO QAM 08/14/22 08/14/22 History levothyroxine 100 mcg tablet 100 mcg PO DAILYBB 08/14/22 08/14/22 History (Synthroid) Patient History Medical History Brain aneurysm had surgery Closed fracture of left hip Diabetes type 2, controlled currently diet controlled, pt states she stopped taking metformin GERD (gastroesophageal reflux disease) Hyperlipidemia Hypertension Hypopituitarism Osteoporosis Paroxysmal atrial fibrillation takes eliquis Schatzki's ring of distal esophagus Seasonal allergies Sinus bradycardia SSS (sick sinus syndrome) Status post placement of implantable loop recorder Stroke 2019 - right side a little weak Vitamin D deficiency Surgical History H/O craniotomy H/O dilation and curettage H/O total hip arthroplasty right and left History of colonoscopy History of esophagogastroduodenoscopy (EGD) History of hypophysectomy History of tonsillectomy Hx of cataract surgery right and left Hx of tubal ligation Family History Father Colon cancer Diabetes Myocardial infarction Colorectal cancer Stroke Mother ASCVD (arteriosclerotic cardiovascular disease) Lymphoma Father Colorectal cancer Grandfather (Paternal) Diabetes Daughter Cervical cancer Grandmother (Maternal) Cervical cancer Other Family history non-contributory No family history of adverse response to anesthesia Denies family history of Crohn's disease Social History Smoking Status: Never smoker Second Hand Exposure: No; Hx Alcohol Use: No Hx Substance Use: No Preferred Language: Mauritanian Communication Ability: Effective Wired Sweatband Cutter Required: No Beliefs That Will Affect Care: None marital status: Current Living Situation: Spouse current occupational status: retired Feels Safe at Home: Yes Assistive Devices: None Physical Exam Physical Exam: Gen.: No acute distress. Alert and oriented. HEENT: Anicteric sclera. Neck: No JVD. No bruits. Normal carotid upstrokes bilaterally. Cardiac: PMI was nonpalpable. No ventricular heave. Regular and bradycardic in the 30s to 40s. Normal S1-S2. No murmurs, rubs, or gallops. Pulmonary: Clear to auscultation bilaterally without wheezes, rales, or rhonchi. Abdomen: Soft, nontender, nondistended, with normoactive bowel sounds. No bruits noted. Extremities: 2+ radial pulses bilaterally. 2+ posterior tibialis pulses bilaterally. No significant pitting edema or cyanosis. Psychiatric: Affect appears appropriate. Results & Data ([facility]) Vital Signs (Past 12 Hours) Vital Signs Temp Pulse Resp BP Pulse Ox O2 Del Method 08/14/22 11:01 39 L 17 153/63 H 90 08/14/22 10:30 41 L 16 158/75 H 97 08/14/22 10:06 42 L 16 170/69 H 99 08/14/22 09:46 36.8 C 40 L 18 177/74 H 96 Room Air Laboratory Results Laboratory Results - last 24 hr 08/14/22 08/14/22 08/14/22 10:00 10:00 10:00 WBC 8.10 RBC 4.44 Hgb 14.4 Hct 41.4 MCV 93.2 MCH 32.4 MCHC 34.8 RDW Std Deviation 39.7 RDW Coeff of Maureen 11.7 Plt Count 263 MPV 10.9 Immature Gran % (Auto) 0.2 Neut % (Auto) 57.8 Lymph % (Auto) 32.6 [place] % (Auto) 6.9 Eos % (Auto) 2.3 Baso % (Auto) 0.2 Neut # (Auto) 4.67 Lymph # (Auto) 2.64 [place] # (Auto) 0.56 Eos # (Auto) 0.19 Baso # (Auto) 0.02 Immature Gran # (Auto) 0.02 PT 10.9 INR 1.0 APTT 27.0 PTT Ratio 1.0 Sodium 141 Potassium 4.6 Chloride 103 Carbon Dioxide 30 Anion Gap 8 BUN 21 Creatinine 1.03 Est Cr Clr Drug Dosing Not Reportable Est GFR ( Amer) 61.6 Est GFR (Non-Af Amer) 53.1 BUN/Creatinine Ratio 20.4 H Glucose 111 H Calcium 10.0 Total Bilirubin 0.8 AST 15 ALT 17 Alkaline Phosphatase 64 Troponin I High Sens 5.1 Total Protein 7.1 Albumin 4.5 Globulin 2.6 Albumin/Globulin Ratio 1.7 Lipase 22 TSH Free T4 Lyme Disease IgG Ab Lyme Disease IgM Ab SARS-CoV-2, RNA, NAAT 08/14/22 08/14/22 08/14/22 10:00 10:00 11:30 WBC RBC Hgb Hct MCV MCH MCHC RDW Std Deviation RDW Coeff of Maureen Plt Count MPV Immature Gran % (Auto) Neut % (Auto) Lymph % (Auto) [place] % (Auto) Eos % (Auto) Baso % (Auto) Neut # (Auto) Lymph # (Auto) [place] # (Auto) Eos # (Auto) Baso # (Auto) Immature Gran # (Auto) PT INR APTT PTT Ratio Sodium Potassium Chloride Carbon Dioxide Anion Gap BUN Creatinine Est Cr Clr Drug Dosing Est GFR ( Amer) Est GFR (Non-Af Amer) BUN/Creatinine Ratio Glucose Calcium Total Bilirubin AST ALT Alkaline Phosphatase Troponin I High Sens Total Protein Albumin Globulin Albumin/Globulin Ratio Lipase TSH 0.023 L Free T4 0.69 Lyme Disease IgG Ab Negative Lyme Disease IgM Ab Negative SARS-CoV-2, RNA, NAAT NEGATIVE Diagnostic Findings ECGs reviewed as noted above in HPI. Echo 02/06/2019: Normal LV systolic function. EF 55 to 60%. No significant valvular abnormalities described. PG Care Time/CCT Total # of Minutes Spent Total Time Spent with Patient: Total time spent is greater than 50% in coordination of care (as documented) at patient's floor/unit and/or counseling patient: Coding Level of Care Code 58437 Initial Inpt Care Lvl 3 Diagnoses Tachy-ana syndrome I49.5 Sinus bradycardia R00.1 Status post placement of implantable loop recorder Z95.818 Paroxysmal atrial fibrillation I48.0 Hypertension I10 Hypertension type: primary hypertension Current use of chcf anticoagulation Z79.01 (1) Hypertension Hypertension type: primary hypertension Qualified Code(s): I10 - Essential (primary) hypertension
[2022-08-14] MEDS ORDERED: CARBOHYDRATES FOR HYPOGLYCEMIA PO PRN (18:09)
[2022-08-14] MEDS ORDERED: DEXTROSE 50% 50 ML SYRINGE IV PRN (18:09)
[2022-08-14] MEDS ORDERED: ATROPINE SULFATE 0.1 MG/ML 10ML SYR IV PRN (18:09)
[2022-08-14] MEDS ORDERED: POLYETHYLENE (MIRALAX) 17 GM PACK PO PRN (18:09)
[2022-08-14] MEDS ORDERED: ACETAMINOPHEN 325 MG TAB PO PRN (18:09)
[2022-08-14] MEDS ORDERED: GLUCOSE 40% GEL 15 GM TUBE PO PRN (18:09)
[2022-08-14] MEDS ORDERED: GLUCOSE 10 TAB/TUBE PO PRN (18:09)
[2022-08-14] MEDS ORDERED: GLUCAGON FOR INJ 1 MG VIAL SQ PRN (18:09)
[2022-08-14] MEDS ORDERED: ONDANSETRON INJ 2 MG/ML 2 ML VIAL IV PRN (18:09)
[2022-08-14] MEDS ORDERED: INFLUENZA VACCINE HIGH DOSE PF 65+ 0.7 ML SYR IM ONE (20:07)
[2022-08-14] MEDS: INSULIN ASPART PER UNIT SC SCH ×3 (20:45→21:16)
[2022-08-14] MEDS: CYANOCOBALAMIN (B-12) 500 MCG TABLET PO SCH (20:46)
[2022-08-14] MEDS: MULTIVITAMIN TAB PO SCH (20:47)
[2022-08-14] MEDS: CALCIUM CITRATE 950 MG TAB PO SCH (20:47)
[2022-08-14] MEDS: CHOLECALCIFEROL 1,000 UNITS 25 MCG TAB PO SCH (20:47)
[2022-08-14] MEDS: HYDROCORTISONE 10 MG TAB PO SCH (20:47)
[2022-08-14] MEDS ORDERED: HYDROCORTISONE 10 MG TAB PO SCH (21:00)
[2022-08-14] MEDS ORDERED: CALCIUM CARBONATE 1250MG TAB PO SCH (21:00)
[2022-08-15] MEDS: LEVOTHYROXINE SODIUM 100 MCG TABLET PO SCH (06:00)
[2022-08-15] MEDS: PANTOprazole 40 MG TAB PO SCH (06:01)
[2022-08-15] MEDS ORDERED: PANTOprazole 40 MG TAB PO SCH (06:30)
[2022-08-15 07:01] LABS: BUN Creatinine Ratio 20.9 (10-20); Calcium 9.4 mg/dl (8.5-10.1); Creatinine Clr Calc Pharmacy 45.6 ml/min; Est GFR (African American) 53.9 ml/min; Est GFR (Non-African American) 46.5 ml/min; Magnesium 1.7 mg/dl (1.7-2.4); Potassium 4.1 mmol/L (3.5-5.1)
[2022-08-15 08:09] LABS: Estimated Average Glucose 126 mg/dl
[2022-08-15] MEDS: HYDROCORTISONE 10 MG TAB PO SCH ×2 (08:58→17:15)
[2022-08-15] MEDS: BACITRACIN OINT 15 GM TUBE EXT SCH (08:59)
[2022-08-15] MEDS: EZETIMIBE 10 MG TABLET PO SCH (08:59)
[2022-08-15] MEDS ORDERED: LOSARTAN POTASSIUM 50 MG TAB PO SCH (09:00)
[2022-08-15] MEDS ORDERED: TRIAMTERENE/HCTZ 37.5/25MG TAB PO SCH (09:00)
[2022-08-15] MEDS ORDERED: LEVOTHYROXINE SODIUM 100 MCG TABLET PO SCH (09:00)
[2022-08-15] MEDS: INSULIN ASPART PER UNIT SC SCH ×4 (09:00→21:15)
--- NOTE | 2022-08-15 13:06 | XCELERA ---
[id number]
--- NOTE | 2022-08-15 14:57 | Pre Anesthesia Assessment ---
Date of Service August 15, 2022 Pre Sedation Assessment Vital Signs Temp Pulse Pulse Resp BP BP BP 08/15/22 14:44 36.5 C 45 L 18 127/65 08/15/22 08:00 39 L 08/15/22 10:54 36.6 C 41 L 17 132/71 08/15/22 07:37 36.8 C 44 L 18 147/72 H 08/14/22 22:18 41 L 08/15/22 03:06 36.8 C 48 L 18 123/62 08/14/22 22:54 36.7 C 51 L 18 110/62 08/14/22 20:24 36.6 C 43 L 18 153/69 H 08/14/22 19:55 36.7 C 43 L 17 166/63 H 08/14/22 19:44 08/14/22 19:44 36.7 C 43 L 17 166/63 H 08/14/22 17:30 36 L 22 109/68 08/14/22 16:00 39 L 17 134/62 08/14/22 15:01 37 L 22 125/52 L Pulse Ox Pulse Ox O2 Del Method O2 Del Method 08/15/22 14:44 95 Room Air 08/15/22 08:00 08/15/22 10:54 96 Room Air 08/15/22 07:37 95 Room Air 08/14/22 22:18 08/15/22 03:06 95 Room Air 08/14/22 22:54 97 Room Air 08/14/22 20:24 97 Room Air 08/14/22 19:55 97 Room Air 08/14/22 19:44 98 Room Air 08/14/22 19:44 100 Room Air 08/14/22 17:30 96 08/14/22 16:00 95 08/14/22 15:01 Cardiovascular + bradycardic Respiratory + respiratory effort normal Pre-Sedation Airway Assessment Smoking Status: Never smoker Hx Sleep Apnea: No Hx Difficult Intubation: No Short, Thick Neck: No Thyromental Distance: > or= 3.5 Finger Breadths Oral Cavity: + WNL ASA: ASA3 Procedure Planning Contraindications for Sedation: none Current Medications Reviewed: Yes Notes The planned sedation has been discussed with the patient. Informed Consent was obtained. I have identified the patient, determined the appropriateness of barber tion and have assessed the patient immediately prior to the procedure. All medicine(s) and interventions are by my order.
[2022-08-15] MEDS ORDERED: BUPIVACAINE 0.25% 30 ML VIAL ONE (15:08)
[2022-08-15] MEDS ORDERED: VANCOMYCIN HCL 1000MG/20ML VIAL ONE (15:08)
[2022-08-15] MEDS ORDERED: LIDOCAINE 1% LOCAL 20 ML VIAL ONE (15:08)
[2022-08-15] MEDS ORDERED: WATER, STERILE FOR INJ 10 ML VIAL ONE (15:08)
[2022-08-15] MEDS ORDERED: MIDAZOLAM HCL 5 MG/ML 1 ML VIAL ONE (15:09)
[2022-08-15] MEDS ORDERED: ceFAZolin 330 MG/ML 1 GM VIAL ONE (15:09)
[2022-08-15] MEDS ORDERED: fentaNYL citrate 100 MCG/2 ML VIAL ONE (15:09)
--- NOTE | 2022-08-15 16:38 | Electrophysiology Report ---
Date of Service August 15, 2022 Electrophysiology Procedure Electrophysiology Procedure Report Procedure performed: Implantation of dual-chamber permanent pacemaker. Removal of previously implanted loop recorder. Staff jar capper: Que Caceres MD Indication:The patient is a 77-year-old woman with longstanding history tachycardia presented with very slow sinus heart rates in symptoms. She is felt to be a candidate for permanent pacemaker due to symptomatic nonreversible sinus node dysfunction. Dual-chamber device was selected she is currently in sinus rhythm which to maintain AV synchrony. Procedure in detail: The patient was informed of the risks benefits and alternatives to the intended procedure and she wished to proceed. She was taken to the electrophysiology suite in a fasting state. A preoperative antibiotic had been administered. The patient was monitored electrocardiographically throughout today's procedure and conscious sedation was administered per protocol. The area over the previously implanted loop recorder was prepped and draped in usual sterile fashion. This area was anesthetized using subcutaneous menstruation lidocaine solution. Small incision was made at this site and carried down the previously implanted device. The device was subsequently removed. The small incision was subsequently closed using 4 0 Vicryl suture. Steri-Strips were also applied. The left upper pectoral area is prepped and draped in usual sterile fashion. This area was anesthetized using subcutaneous administration of a xylocaine solution. An incision was made at this site and carried down to the prepectoralis fascia using sharp dissection. Electrocautery was also employed for dissection as well as for hemostasis. A device pocket was fashioned tissues above the pectoralis muscle. Subsequent to this maneuver the left axillary vein was accessed using modified Seldinger technique. Sheath was placed over guidewire and used facilitate guiding catheter for mapping of the interventricular septum. Once an adequate location was found the ventricular pacing lead was advanced into the interventricular septum. Adequate sensing threshold parameters were obtained prior to removal of the guiding catheter. The sheath was also removed in the pr oximal portion of lead was then sutured to the prepectoralis fascia using nonabsorbable suture. A sheath was placed over the remaining guidewire and used facilitate passage of the pacing lead to the right atrium under fluoroscopic guidance. Adequate sensing threshold parameters were obtained prior to active fixation of the lead to the endocardial surface. Proximal portion of lead was then sutured to prepectoralis fascia using nonabsorbable suture.The device pocket was irrigated with antibiotic solution. The leads were then attached to the device. The device and leads were then placed in the pocket and pocket was closed in 3 layers of absorbable suture. Steri-Strips and sterile dressing were applied. The device was tested noninvasively prior to conclusion the procedure. The patient tolerated procedure well there no immediate complications. Equipment used: New pulse generator: Rotary Rig Engine Operator [employer]. Model number: [id number] Serial number [id number] Right atrial lead: Rotary Rig Engine Operator [employer]. Model number: [id number] serial number [id number] Right ventricular lead: Rotary Rig Engine Operator [employer]. Model number: 3830 serial number [id number] Measured data: Right atrial lead: P-waves measured 3.2 millivolts. Pacing threshold 1.3 volts at 0.5 milliseconds with a pacing impedance of 651 Ohms Right ventricular lead: R-waves measured 14.1 millivolts. Pacing threshold 1.1 volts at 0.5 millisecond with a pacing impedance of 177 Ohms explanted pulse generator: Rotary Rig Engine Operator [employer]. Model number [id number] serial number [id number] Impression: Successful implantation of dual-chamber permanent pacemaker with left bundle pacing lead [facility] Electrophysiology codes Pacing Procedure 1: Pacin Insert/Replace Pacer A & V PG Moderate Sedation Codes Moderate Sedation Codes Procedure 1: Sedation/Anesthesia: 16748 Mod Sedation by the same physician;Init15 Min Child Age 5 & Up Procedure 2: Sedation/Anesthesia: 83483 Mod Sedation by the same physician; Ea [id number] Minutes
[2022-08-15] MEDS ORDERED: oxyCODONE HCL IR 5 MG TAB (IMMEDIATE RELEASE) PO PRN (16:39)
--- NOTE | 2022-08-15 16:39 | Post Anesthesia Assessment ---
Date of Service August 15, 2022 Post Sedation Assessment Vital Signs Temp Pulse Pulse Resp BP BP BP 08/15/22 14:44 36.5 C 45 L 18 127/65 08/15/22 08:00 39 L 08/15/22 10:54 36.6 C 41 L 17 132/71 08/15/22 07:37 36.8 C 44 L 18 147/72 H 08/14/22 22:18 41 L 08/15/22 03:06 36.8 C 48 L 18 123/62 08/14/22 22:54 36.7 C 51 L 18 110/62 08/14/22 20:24 36.6 C 43 L 18 153/69 H 08/14/22 19:55 36.7 C 43 L 17 166/63 H 08/14/22 19:44 08/14/22 19:44 36.7 C 43 L 17 166/63 H 08/14/22 17:30 36 L 22 109/68 Pulse Ox Pulse Ox O2 Del Method O2 Del Method 08/15/22 14:44 95 Room Air 08/15/22 08:00 08/15/22 10:54 96 Room Air 08/15/22 07:37 95 Room Air 08/14/22 22:18 08/15/22 03:06 95 Room Air 08/14/22 22:54 97 Room Air 08/14/22 20:24 97 Room Air 08/14/22 19:55 97 Room Air 08/14/22 19:44 98 Room Air 08/14/22 19:44 100 Room Air 08/14/22 17:30 96 Recovery Score Activity: Moves 4 extremities Respiration: Deep Breath/Cough Circulation: +/-20% PreAnes Value Consciousness: Fully Awake Oxygen Saturation: > 92% On Room Air Discharge Sedation Level of Care: Fast Track Phase II Post Sedation Plan On clinical assessment, the patient appears to have tolerated the sedation without complications. Patient is recovering as anticipated. Patient will continue to be monitored by nursing and may be discharged when sedation discharge criteria are met per below protocol. Upon Completions of procedure up to 15 minutes continue every 5 minute vital signs and the P.A.R. score; then discharge to a Phase I or Fast Track to Phase II per the following guidelines: * Discharge Patient to appropriate Phase II area if PAR is 8 or greater or return to pre- procedure baseline. The post - procedure orders will be as directed. * If PAR score is less than 8 or not return to pre-procedure baseline then patient will follow Phase I monitoring till PAR is reached for Phase II. The Phase I may be done in procedure room or may call to secure a Phase I area. * If naloxone or flumazenil are used for reversal, hold in Phase I for continued monitoring from when last reversal dose was given for a minimum of 60 minutes or longer pending the nurse and/or physician discretion of patient condition before discharge to Phase II. Please call the Sedation Physician to re-evaluate and complete post-note for discharge to Phase II area. Do NOT discharge from procedure sedation or Phase 1 until post- sedation evaluation note is complete by procedure /sedation MD Sedation Discharge Instructions to be given to the patient at discharge to home.
--- NOTE | 2022-08-15 19:18 | Hospitalist Progress Note ---
Date of Service August 15, 2022 Assessment & Plan (1) SSS (sick sinus syndrome): Plan: Symptomatic bradycardia / tachy-ana syndrome in the setting of sick sinus syndrome with history of rapid atrial fibrillation and flutter in the past. Has a loop recorder in place. Here with symptomatic sinus bradycardia with rates in the 30s. Recently on several anti-arrhythmics and reduced doses of Toprol-XL. Despite such her bradycardia remained. Lyme negative Thyroid function normal with normal free T4 in the setting of central hypothyroidism s/p permanent pacemaker insertion today by Dr Caceres along with explantation of loop recorder device appreciate his assistance cxr in am monitor overnight (2) Abscess, earlobe: Plan: s/p I/D by Dr Brower (Right earlobe) wound culture negative thus far Continue to apply topical bacitracin and daily dressing changes (3) Hypertension: Plan: Blood pressures are normal Holding home metoprolol for bradycardia as above Hold home losartan and Dyazide as well Trend BPs (4) Chronic anticoagulation: Plan: Holding home Eliquis due to pacer insertion today (5) Paroxysmal atrial fibrillation: Plan: Holding metoprolol, flecainide, and Eliquis as above in #1 pacemaker placement today (6) Diabetes type 2, controlled: Plan: diet-controlled a1c excellent - 6% (7) Secondary adrenal insufficiency: Plan: 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 hydrocortisone BID Give stress doses next 2-3 days (8) Central hypothyroidism: Plan: TSH mildly low but this is not reliable in the setting of central hypothyroidism. 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 once a week due to intolerance Continue Zetia (13) GERD (gastroesophageal reflux disease): Plan: Continue Protonix Plan updated at bedside Admission and Anticipated Discharge Date Admission Date: August 14, 2022 Subjective patient without any complaints except for fatigue she is hoping that with pacemaker insertion her fatigue and energy improve tele overnight with rates in the 40s at bedside; questions answered Review of Systems Review of Systems: cv - no cp, no orthopnea pulm - no dyspnea GI - no nausea or emesis Physical Exam Physical Exam: gen - NAD, pleasant neck - no JVD mouth - MMM heart - ana, s1 s2, 1/6 VIPIN RUSB/LUSB lungs - CTA b/l abd - soft NT ND BS+ ext - no edema, pulses 2+ b/l psych - a/o x 3 Results & Data Results & Data ([facility]) Vital Signs (Past 12 Hours) Vital Signs Temp Pulse Pulse Resp BP BP Pulse Ox 08/15/22 18:00 36.9 C 60 18 115/68 97 08/15/22 17:30 36.9 C 60 18 114/68 97 08/15/22 17:15 36.8 C 60 18 124/68 97 08/15/22 17:00 36.9 C 60 16 122/76 98 08/15/22 14:44 36.5 C 45 L 18 127/65 95 08/15/22 08:00 39 L 08/15/22 10:54 36.6 C 41 L 17 132/71 96 08/15/22 07:37 36.8 C 44 L 18 147/72 H 95 O2 Del Method 08/15/22 18:00 Room Air 08/15/22 17:30 Room Air 08/15/22 17:15 Room Air 08/15/22 17:00 Room Air 08/15/22 14:44 Room Air 08/15/22 08:00 08/15/22 10:54 Room Air 08/15/22 07:37 Room Air Laboratory Results Laboratory Results - last 24 hr 08/14/22 08/15/22 08/15/22 20:30 05:46 05:46 Sodium 138 Potassium 4.1 Chloride 101 Carbon Dioxide 31 Anion Gap 6 BUN 24 H Creatinine 1.15 Est Cr Clr Drug Dosing 45.6 Est GFR ( Amer) 53.9 Est GFR (Non-Af Amer) 46.5 BUN/Creatinine Ratio 20.9 H Glucose 100 H POC Glucose 123 H Estimat Average Glucose 126 Hemoglobin A1c 6.0 H Calcium 9.4 Magnesium 1.7 08/15/22 08/15/22 08/15/22 07:21 11:18 17:05 Sodium Potassium Chloride Carbon Dioxide Anion Gap BUN Creatinine Est Cr Clr Drug Dosing Est GFR ( Amer) Est GFR (Non-Af Amer) BUN/Creatinine Ratio Glucose POC Glucose 104 H 103 H 100 H Estimat Average Glucose Hemoglobin A1c Calcium Magnesium PG Care Time/CCT Total # of Minutes Spent Total Time Spent with Patient: Total time spent is greater than 50% in coordination of care (as documented) at patient's floor/unit and/or counseling patient: Coding Level of Care Code 75365 Subseq Hosp Care Lvl 2 Diagnoses SSS (sick sinus syndrome) I49.5 Abscess, earlobe H60.00 Hypertension I10 Hypertension type: primary hypertension Chronic anticoagulation Z79.01 Paroxysmal atrial fibrillation I48.0 Diabetes type 2, controlled E11.9 Secondary adrenal insufficiency E27.49 Central hypothyroidism E03.8 History of CVA (cerebrovascular accident) Z86.73 Osteoporosis M81.0 Hypopituitarism E23.0 Dyslipidemia E78.5 GERD (gastroesophageal reflux disease) K21.9 Esophagitis presence: without esophagitis (1) GERD (gastroesophageal reflux disease) Esophagitis presence: without esophagitis Qualified Code(s): K21.9 - Gastro- esophageal reflux disease without esophagitis (2) Hypertension Hypertension type: primary hypertension Qualified Code(s): I10 - Essential (primary) hypertension
[2022-08-15] MEDS: CALCIUM CITRATE 950 MG TAB PO SCH (22:00)
[2022-08-15] MEDS: MULTIVITAMIN TAB PO SCH (22:00)
[2022-08-15] MEDS: CYANOCOBALAMIN (B-12) 500 MCG TABLET PO SCH (22:00)
[2022-08-15] MEDS: CHOLECALCIFEROL 1,000 UNITS 25 MCG TAB PO SCH (22:00)
[2022-08-15] MEDS ORDERED: ceFAZolin 1000MG 1,000 MG/7.5 ML SYR IV ONE (23:30)
--- NOTE | 2022-08-16 05:37 | Electrocardiogram Report ---
Test Reason : Blood Pressure : / mmHG Vent. Rate : 039 BPM Atrial Rate : 039 BPM P-R Int : 210 ms QRS Dur : 110 ms QT Int : 540 ms P-R-T Axes : 044 018 038 degrees QTc Int : 434 ms Marked sinus bradycardia with 1st degree A-V block When compared with ECG of 24-MAY-2021 10:11, [place] interval has increased Criteria for Septal infarct are no longer Present Confirmed by Efra Funk ([id number]) on 08/16/2022 5:37:24 AM Referred By: Reinaldo Daley Confirmed By:Efra Funk
[2022-08-16] MEDS: LEVOTHYROXINE SODIUM 100 MCG TABLET PO SCH (05:50)
[2022-08-16] MEDS: PANTOprazole 40 MG TAB PO SCH (05:50)
[2022-08-16] MEDS: HYDROCORTISONE 10 MG TAB PO SCH (08:13)
[2022-08-16] MEDS: BACITRACIN OINT 15 GM TUBE EXT SCH (08:13)
[2022-08-16] MEDS: EZETIMIBE 10 MG TABLET PO SCH (08:13)
[2022-08-16] MEDS: INSULIN ASPART PER UNIT SC SCH ×2 (08:14→12:00)
[2022-08-16] MEDS ORDERED: HYDROCORTISONE 10 MG TAB PO ONE (10:13)
[2022-08-16] MEDS ORDERED: SODIUM CHLORIDE 0.9% 1000ML 500 ML IV ONE (10:41)
--- NOTE | 2022-08-16 10:58 | Cardiology Progress Note ---
Date of Service August 16, 2022 Assessment & Plan (1) Tachy-ana syndrome: (2) Sinus bradycardia: (3) Status post placement of implantable loop recorder: (4) Paroxysmal atrial fibrillation: (5) Hypertension: (6) Current use of terminal manager anticoagulation: Plan ASSESSMENT/PLAN: 1. Tachybradycardia syndrome: Pacemaker placed yesterday. We will reinstitute metoprolol 50 mg daily. We could potentially increase the dose if she continues to have episodes tachycardia. No concerns of bradycardia With her pacemaker implant. 2. Sinus bradycardia: Status post dual-chamber permanent pacemaker 3. Paroxysmal atrial fibrillation: Apparently more frequent episodes noted on loop recorder interrogation as per Dr. Daley's most recent report. flecainide discontinued. Made after rate control strategy now that she has a pacemaker in place. Continue apixaban but do not restart the medication until Sunday morning 4. Hypertension: She has been both normotensive and hypertensive. Avoid AV bette blocking agents for now as above. Most recent blood pressure well con trolled. patient stable for discharge from a cardiology standpoint. She has scheduled follow-up in our clinic already tomorrow. As noted above resume metoprolol succinate 50 mg daily and apixaban on Sunday. He should refrain from getting the wound wet for 5-7 days. She should refrain from lifting left arm above the shoulder behind the neck for 6 weeks. Admission and Anticipated Discharge Date Admission Date: August 14, 2022 Subjective this morning patient claims to be feeling somewhat weak. She has some mild discomfort at the device implant site. No dizziness or lightheadedness. Review of Systems Review of Systems: Per HPI Physical Exam Physical Exam: examination of the loop explant site and the pacemaker implant site did not reveal any evidence of hematoma. No significant ecchymosis. No drainage. No erythema. Results & Data ([facility]) Vital Signs (Past 12 Hours) Vital Signs Temp Pulse Pulse Resp BP BP Pulse Ox 08/16/22 07:21 36.6 C 60 16 111/70 93 08/16/22 03:02 36.7 C 69 20 125/78 93 08/16/22 00:00 60 O2 Del Method 08/16/22 07:21 Room Air 08/16/22 03:02 Room Air 08/16/22 00:00 Laboratory Results I performed a complete device interrogation of her dual-chamber permanent . normal function. Normal sensing threshold on both leads. I reviewed her chest x-ray. Good lead position without pneumothorax. (1) Hypertension Hypertension type: primary hypertension Qualified Code(s): I10 - Essential (primary) hypertension
[2022-08-16 11:14] LABS: BUN Creatinine Ratio 22.7 (10-20); Calcium 9.8 mg/dl (8.5-10.1); Creatinine Clr Calc Pharmacy 59.2 ml/min; Est GFR (African American) 74.5 ml/min; Est GFR (Non-African American) 64.3 ml/min
[2022-08-16] MEDS ORDERED: cephALEXin 500 MG CAP PO SCH (12:30)
--- NOTE | 2022-08-16 13:10 | XRay Report ---
XR chest 2V PA/lateral CLINICAL HISTORY: EXACT TIME ORDERED Evaluate for pneumothorax and l TECHNIQUE: 2 views of the chest were obtained. Comparison: Comparison is made to chest radiograph 08/14/2022 FINDINGS: Dual lead pacemaker is seen. The cardiomediastinal silhouette is normal. The lungs are clear. No evid ence of pleural effusion or pneumothorax. IMPRESSION: New dual-lead pacemaker. No evidence of pneumothorax. ACT 112: Negative or not required by law. Electronically signed by: Alfie Francis M.D. 08/16/2022 1:07 PM
--- NOTE | 2022-08-16 14:31 | Discharge Summary ---
Date of Service date of admission - August 14, 2022 date of discharge - August 16, 2022 Admission HPI Per Admitting Provider This patient is a 77-year-old female history of HTN, dyslipidemia, DM 2, paroxysmal atrial fibrillation on Eliquis, SSS with loop recorder in place, hypopituitarism, GERD, brain aneurysm s/p craniotomy, Schatzki's ring, CVA, osteoporosis, vitamin D deficiency, and recent COVID-19 infection who presents to the ER with bradycardia. She was started on Multaq about 3 weeks ago and had symptoms of lightheadedness and fatigue and dizziness with that. This was then switched to flecainide and her metoprolol dose was decreased. She continued to have the same symptoms even on flecainide and was told to come in for an ECG today in the cardiology office. She was found to have bradycardia with heart rates in the 30s and was sent to the ER for further evaluation. She reports at rest she is not currently having any symptoms. She denies chest pains, headache, nausea or vomiting but did have some nausea with being on the antiarrhythmics in the last few weeks. No diarrhea or constipation. No abdominal pains. No recent fevers or chills. In the ER, her CBC and CMP were normal, troponin was normal. TSH low at 0.023 but free T4 normal at 0.69 and she does have central hypothyroidism so this is consistent with good control. Lyme titer negative. She was seen by cardiology here and plan is for pacemaker placement tomorrow. Principal Diagnosis 1. Tachy-ana syndrome / Sick Sinus Syndrome s/p Permanent Pacemaker Placement 2. Atrial Fibrillation 3. Right earlobe abscess 4. Panhypopituitarism Discharge Exam gen - NAD, pleasant neck - no JVD HENT - right ear - just posterior to where the ear attaches to the mastoid region there is a small abscess present; abscess opening about 1mm with purulent material; minimal surrounding swelling/erythema mouth - MMM heart - RRR, s1 s2, 1/6 VIPIN RUSB/LUSB lungs - CTA b/l abd - soft NT ND BS+ ext - no edema, pulses 2+ b/l psych - a/o x 3 Discharge Data Allergies Allergy/AdvReac Type Severity Reaction Status Date / Time Sulfa (Sulfonamide Allergy Mild RASH Verified 08/22/22 10:52 Antibiotics) dobutamine AdvReac Severe ST Verified 08/22/22 10:52 ELEVATION, CHEST PAIN Consultations [facility] - Que Caceres MD Procedures Performed 1. Operation Date: 08/15/22 14:00 Actual Procedures Pacer with A/V Leads (Dual) with removal of loop recorder - Que Caceres MD 2. I/D of right earlobe abscess - Alessandra Brower MD Ordered Studies Echocardiogram - EF 65-70%, normal valve function Hospital Course (1) SSS (sick sinus syndrome): Presented with symptomatic bradycardia / tachy-ana syndrome in the setting of sick sinus syndrome with history of rapid atrial fibrillation and flutter in the past. Sinus rates were in the 30s at time of presentation. She was recently on several anti-arrhythmics for her paroxysmal a.fib and reduced doses of Toprol-XL. Despite such her bradycardia remained. Lyme testing was negative. Thyroid function normal with normal free T4 in the setting of central hypothyroidism. Fortunately the patient remained hemodynamically stable throughout her stay despite the bradycardia. All anti-arrhythmic therapy and AV bette agents were held at admission. Eliquis was also held. On 08/15/22 she underwent permanent pacemaker insertion by Dr Que Caceres along with explantation of loop recorder device. Post-procedure chest x-ray was normal and without pneumothorax. The pacemaker was functioning well at time of discharge. The incision was clean and intact with no hematoma at discharge. She will follow-up with the cardiology clinic within 1 week of discharge. Metoprolol succinate 50mg daily was resumed, and Eliquis will be restarted 48 hours post-discharge. (2) Abscess, earlobe: The patient had a right posterior earlobe skin abscess. This was I/D by Dr Alessandra Brower at time of admission. Wound culture remained negative during the stay. At discharge she will take a 5-day course of keflex 500mg TID and apply bactroban ointment to the region BID x 7 days. (3) Hypertension: At time of admission all anti-hypertensive medication was held. On day of discharge the patient had mild orthostasis due to her adrenal insufficiency/panhypopituitarism. She was asked to hold Losartan and triamterene/HCTZ upon return home. She will resume metoprolol succinate 50mg daily. (4) Chronic anticoagulation: She will resume her Eliquis on 08/18/22. (5) Paroxysmal atrial fibrillation: See #1 above. Flecainide has been discontinued. Eliquis to be resumed 08/18/22. Continue metoprolol succinate daily. 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 Follows with endocrinology for such. She received stress dose steroids post-pacemaker insertion, and will take a steroid burst for several days at home. Ultimately she will resume her usual regimen of hydrocortisone 10mg qam and 5mg qpm. (8) Central hypothyroidism: TSH mildly low but this is not reliable in the setting of central hypothyroidism. Free T4 is normal. Continue home dose of levothyroxine 100 mcg daily. (9) History of CVA (cerebrovascular accident): Embolic CVA with minimal residual deficits. Eliquis was held for pacer insertion and will be resumed 48 hours after discharge. (10) Osteoporosis: Continue D3 and calcium, monthly Boniva (11) Hypopituitarism: 2nd to pituitary mass resection in the remote past. (12) Dyslipidemia: Continue rosuvastatin 5 Mg p.o. once a week due to intolerance Continue Zetia (13) GERD (gastroesophageal reflux disease): Continue Protonix Total Time Total Time Spent Total Time Spent (In Minutes): 45 Discharge Plan Discharge Items Patient Disposition: Home - Self-Care Reason For Visit: SYMPTOMATIC BRADYCARDIA Discharge Diagnosis: Symptomatic bradycardia (slow heart rate) with history of a.fib - with insertion of pacemaker by Dr Que Caceres Activity: As commented below Activity Comment: No lifting left arm above shoulder or behind neck for 6 weeks Lifting: No more than 10 pounds Bathing: Keep incision dry Bathing Comment: keep wound dry and Steri-Strips intact until follow-up in our clinic Non-emergency contact: Primary Care Provider and Chemistry Research Assistant Call non-emergency contact if: you have any medication questions, your symptoms worsen, your wound has increased redness, your wound has increased drainage and your wound pain has increased Follow-up/Referrals: Reinaldo Daley MD [Physician] - 08/17/22 Cristobal Gamino MD [Primary Care Provider] - 08/22/22 9:20 am Diet: Carb Consistent or DM2 and Heart Healthy Addtl Attending Provider Instructions: Mrs Cantu, You were admitted to the hospital due to severe bradycardia which is when the heart rate is very slow. This was causing fatigue and other symptoms for you. Dr Que Caceres from [facility] implanted a pacemaker on 08/15/22. The procedure went well. The device is functioning appropriately at time of discharge and your heart rates are now normal. In addition to the above you had a small abscess behind the right earlobe. This was drained by Dr Brower. The culture thus far is negative, but there does appear to be some ongoing infection. Recommendations - 1. Hydrocortisone - take as follows - * afternoon/evening of 08/16 -- take 15mg * AM of 08/17 -- take 20mg * PM of 08/17 -- take 10mg * AM of 08/18 -- take 15mg * PM of 08/18 -- take 10mg * AM of 08/19 -- resume your typical dosing of 10mg every morning and 5mg every afternoon 2. Please use the sling while you sleep on your left arm. This will prevent your arm from bending/raising up in the middle of the night. 3. For your skin abscess behind the right ear - * bactroban ointment (prescription sent to [facility] for you) -- apply twice daily x 7 days * cephalexin 500mg THREE times daily x 5 days, first dose tonight (prescription sent to [facility] for you) * you can cover the site with a band-aid or any other kqrv-bgk-[id number] bandage that you prefer * please have Dr Gamino check the ear at your follow-up on 08/22/22 4. Please keep your pacemaker insertion site covered, clean, and dry during showers. NO TUB baths, swimming, or immersion. 5. Please HOLD/STOP the following medications -- * losartan * triamterene/HCTZ * flecainide 6. Eliquis blood thinner --- hold until 08/18/22. Ok to resume 08/18/22. 7. For pain relief from your surgery you can take itdh-whj-qyxauxy tylenol, 1000mg every 6 hours as needed, max 3000mg in 24 hours. 8. If you need to soothe the earlobe on the right you can take a warm washcloth and apply it behind the ear for 15-20 minutes at a time. This may help promote faster resolution of the abscess. Follow-up - see separate section Return to [facility] if - * you have any concerns about your pacemaker incision * you have any concerns about your right earlobe skin infection * you have fever over 100 degrees * you have recurrent dizziness or lightheadedness * you have shortness of breath or chest pains * any other concerns It was our pleasure to care for you at [facility]! Dr Galindo Pending Studies at Discharge: Yes Studies:: wound culture from right ear, but thus far no specific organism has grown Stand-Alone Forms: My [facility], Smoking Cessation Medications and DC Order Prescriptions: New mupirocin 2 % ointment 1 applic topical BID Qty: 22 1RF Rx Instructions: apply twice daily to right earlobe for 7 days Continued (DME) blood-glucose meter [[employer]Touch Ultra2 Meter] Misc See Rx Instructions .ROUTE .MEDSUPPLY Qty: 1 0RF Rx Instructions: use to test 1 time daily ezetimibe 10 mg tablet 10 mg PO QAM Qty: 90 3RF risedronate 150 mg tablet 150 mg PO MONTHLY Qty: 1 11RF Rx Instructions: TAKE THIS MED THE FIRST OF EACH MONTH. Eliquis 5 mg tablet 5 mg PO BID Qty: 180 3RF (DME) OneTouch Ultra Test Strip See Rx Instructions .ROUTE .MEDSUPPLY Qty: 100 1RF Rx Instructions: test 1 time daily multivitamin tablet 1 tab PO HS cyanocobalamin (vitamin B-12) 1,000 mcg capsule 1,000 mcg PO HS cholecalciferol (vitamin D3) 50 mcg (2,000 unit) capsule 50 mcg PO HS (DME) lancets [OneTouch Delica Lancets] 30 gauge misc See Dose Instructions .ROUTE .MEDSUPPLY Qty: 25 Rx Instructions: As directed metoprolol succinate 50 mg tablet extended release 24 hr 50 mg PO DAILY Qty: 30 3RF rosuvastatin 5 mg Tablet 5 mg PO WK Rx Instructions: TAKE THIS MED EVERY SUNDAY calcium citrate 200 mg (950 mg) Tablet 200 mg PO HS hydrocortisone 5 mg tablet 5 mg PO .UD Rx Instructions: TAKE THIS MED 8 HOURS AFTER TAKING THE FIRST ONE OF THE DAY. MAY DOUBLE IN TIMES OF STRESS. hydrocortisone 5 mg tablet 10 mg PO QAM Rx Instructions: INDUCTION [employer]ATING [employer]MENT [employer]TER MED levothyroxine [Synthroid] 100 mcg tablet 100 mcg PO DAILYBB Rx Instructions: MUST BE SYNTHROID pantoprazole 40 mg tablet,delayed release (DR/EC) 40 mg PO DAILYBB Discontinued losartan 100 mg tablet 100 mg PO QAM Qty: 90 3RF flecainide 100 mg tablet 100 mg PO Q12H Qty: 60 2RF triamterene-hydrochlorothiazid 37.5-25 mg tablet 1 tab PO QAM Discharge Orders: Discharge Order (Routine); Ordered 08/16/22 Ordered By: Lionel Baez/Other Patient Handouts: Pacemakers, Living with a Pacemaker, Managing Type 2 Diabetes Admission Data Admit Date/Time: 08/14/22 13:24 Attending Provider: Lionel Galindo Admit Provider: Alessandra Brower Primary Care Provider: Cristobal Gamino Other Providers: Alessandra Brower ; Efra Funk Other Interventions: Discharge Summary Assessment (RN) Last Done: 08/16/22 14:25 Coding Level of Care Code D/C DAY MANAGEMENT >30 MINS Diagnoses SSS (sick sinus syndrome) I49.5 Abscess, earlobe H60.00 Hypertension I10 Hypertension type: primary hypertension Chronic anticoagulation Z79.01 Paroxysmal atrial fibrillation I48.0 Diabetes type 2, controlled E11.9 Secondary adrenal insufficiency E27.49 Central hypothyroidism E03.8 History of CVA (cerebrovascular accident) Z86.73 Osteoporosis M81.0 Hypopituitarism E23.0 Dyslipidemia E78.5 GERD (gastroesophageal reflux disease) K21.9 Esophagitis presence: without esophagitis
[2022-08-19] MEDS ORDERED: ROSUVASTATIN CALCIUM 5 MG TAB PO SCH (20:00)
== END 2022-08-16 15:18 | disposition home or self-care (01) | DRG 243 ==
LOC: ED 09:36 → EDINP 13:24 → SUATTDRO 13:24 → EDINP 20:31 → 2S 20:38
DX: E11.9 Type 2 diabetes mellitus without complications; M81.0 Age-related osteoporosis without current pathological fracture; Z79.01 Long term (current) use of anticoagulants; Z88.2 Allergy status to sulfonamides; Z96.643 Presence of artificial hip joint, bilateral; I48.0 Paroxysmal atrial fibrillation; H60.01 Abscess of right external ear; E23.0 Hypopituitarism; I49.5 Sick sinus syndrome; E03.8 Other specified hypothyroidism; Z95.828 Presence of other vascular implants and grafts; Z83.3 Family history of diabetes mellitus; Z79.890 Hormone replacement therapy; E27.40 Unspecified adrenocortical insufficiency; I69.398 Other sequelae of cerebral infarction

== ENCOUNTER 2024-10-20 08:33 | Inpatient (IN) ==
--- NOTE | 2024-10-20 09:00 | Emergency Department Note ---
History of Present Illness General Chief complaint: Back Injury/Pain Stated complaint: BACK PAIN/INJURY Time Seen by Provider: 10/20/24 08:45 History of Present Illness Maximum Pain Intensity: 9 This is a 79-year-old female that presents to the emergency department via private vehicle with complaints of "right low back pain". The patient states that she was here recently for evaluation of falls, was found to have hemothorax and was transferred to [facility]. She did not require any surgical intervention, and was optimally discharged home she notes the Sunday before . She states that on October 16 she began with right low back pain. No new trauma. No new injury. She notes that she can barely walk now secondary to the pain. It does not radiate down the legs. There is no lower extremity weakness, bowel or bladder incontinence, numbness or tingling in genital region. The patient does however note chronic right-sided deficits from a stroke in the past. Currently on Eliquis. The patient denies any fevers, chills, chest pain or shortness of breath. No nausea or vomiting. No abdominal pain. No dysuria. Home Medications Medication Instructions Recorded Confirmed Type cholecalciferol (vitamin D3) 50 50 mcg PO HS 10/27/19 10/20/24 History mcg (2,000 unit) capsule cyanocobalamin (vitamin B-12) 1,000 mcg PO HS 10/27/19 10/20/24 History 1,000 mcg capsule calcium citrate 200 mg PO HS 08/14/22 10/20/24 History rosuvastatin 5 mg tablet 5 mg PO WK #14 tabs 10/10/23 10/20/24 Rx albuterol sulfate 90 mcg/actuation 1 inh inhalation QID #8.5 grams 03/14/24 10/20/24 Rx aerosol inhaler apixaban 5 mg tablet (Eliquis) 5 mg PO BID #180 tabs 04/21/24 10/20/24 Rx Synthroid 100 mcg tablet 100 mcg PO DAILYBB #90 tabs 06/24/24 10/20/24 Rx (levothyroxine) metoprolol succinate 50 mg 50 mg PO DAILY #90 tabs 06/24/24 10/20/24 Rx tablet,extended release 24 hr risedronate 150 mg tablet 150 mg PO MONTHLY #3 tabs 09/12/24 10/20/24 Rx pantoprazole 40 mg tablet,delayed 40 mg PO DAILY 10/09/24 10/20/24 History release acetaminophen 325 mg tablet 975 mg PO TID PRN Pain/Fever 10/13/24 10/20/24 History (Tylenol) ezetimibe 10 mg tablet 10 mg PO QAM #90 tabs 10/16/24 10/20/24 Rx hydrocortisone 5 mg tablet 5 mg PO UD 10/20/24 10/20/24 History lidocaine 4 % topical patch 1 patch topical BID PRN Pain 10/20/24 10/20/24 History losartan 100 mg tablet 100 mg PO DAILY 10/20/24 10/20/24 History Allergies Allergy/AdvReac Type Severity Reaction Status Date / Time Sulfa (Sulfonamide Allergy Mild RASH Verified 10/20/24 12:36 Antibiotics) dobutamine AdvReac Severe ST Verified 10/20/24 12:36 ELEVATION, CHEST PAIN Past Med/Surg History Problem List (Updated 10/20/24 @ 14:52 by Juan Diehl PA-C) Ambulatory dysfunction (Acute) Acute right-sided low back pain (Acute) Ambulatory dysfunction Closed fracture of a rib (Acute ~10/09/24) Fractured lateral aspect Right 7th rib from a fall Pleural effusion (Acute) Closed rib fracture (Acute 10/09/24) Fracture lateral aspect right 7th rib from a fall. 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 Atrial fibrillation GERD (gastroesophageal reflux disease) Osteoporosis Cardiac pacemaker Bradycardia, severe sinus (Acute) Abnormal mammogram History of acromegaly Medical History (Updated 10/20/24 @ 14:52 by Juan Diehl PA-C) History of hip fracture (09/14/19) Left hip Chronic diarrhea Vitamin D deficiency History of CVA (cerebrovascular accident) Due to embolism Schatzki's ring of distal esophagus Surgical History History of colonoscopy History of esophagogastroduodenoscopy (EGD) H/O craniotomy H/O dilation and curettage H/O total hip arthroplasty right and left History of tonsillectomy Hx of tubal ligation Hx of cataract surgery right and left History of hypophysectomy Family History Father Colon cancer Diabetes Myocardial infarction Colorectal cancer Stroke Mother ASCVD (arteriosclerotic cardiovascular disease) Lymphoma Father Colorectal cancer Grandfather (Paternal) Diabetes Daughter Cervical cancer Grandmother (Maternal) Cervical cancer Other Family history non-contributory No family history of adverse response to anesthesia Denies family history of Crohn's disease Social History Smoking Status: Never smoker Second Hand Exposure: No; Do You Dip or Chew Tobacco: No; Hx Alcohol Use: No Hx Substance Use: No Preferred Language: Syriac Communication Ability: Effective Service Parts Driver Required: No Beliefs That Will Affect Care: None marital status: Current Living Situation: Spouse current occupational status: retired Feels Safe at Home: Yes Assistive Devices: Stair Lift Review of Systems A total of 10 systems reviewed and were otherwise negative Physical Exam Vital Signs Vital Signs - 24 hr 10/20/24 08:40 10/20/24 09:17 10/20/24 09:22 Temperature 36.7 C Temperature Source Temporal Artery Scan Pulse Rate 80 63 Pulse Rate [Apical] 62 Respiratory Rate 18 18 Respiratory Effort / Characteristics Non-Labored Spontaneous Non-Labored Spontaneous Respiratory Depth Normal Normal Respiratory Pattern Blood Pressure 186/75 H Blood Pressure [Left Arm] 164/93 H Blood Pressure Mean 112 Blood Pressure Mean [Left Arm] 116 Blood Pressure Position Sitting Blood Pressure Position [Left Arm] Lying Pulse Oximetry 95 95 Oxygen Delivery Method Room Air Room Air Sepsis Recent Fever Within 48 Hours No Sepsis New/Unexplained Change in Mental Status No Sepsis Action Taken by Nursing No Action Required 10/20/24 11:00 10/20/24 13:00 10/20/24 13:39 Temperature Temperature Source Pulse Rate 62 Pulse Rate [Apical] 67 63 Respiratory Rate 16 18 Respiratory Effort / Characteristics Non-Labored Spontaneous Respiratory Depth Normal Respiratory Pattern Regular Blood Pressure Blood Pressure [Left Arm] 152/88 H 152/88 H Blood Pressure Mean Blood Pressure Mean [Left Arm] 109 109 Blood Pressure Position Blood Pressure Position [Left Arm] Semi-fowlers Pulse Oximetry 95 97 Oxygen Delivery Method Room Air Sepsis Recent Fever Within 48 Hours Sepsis New/Unexplained Change in Mental Status Sepsis Action Taken by Nursing VITAL SIGNS - Vital signs and nursing notes were reviewed. Hypertensive, otherwise stable and afebrile GENERAL - 79-year-old female appearing her stated age who is in no acute distress. Communicates well with provider and answers questions appropriately. SKIN - Without rashes. HEAD - NC/AT. EYES - PERRL with EOMI bilaterally. Sclera anicteric. EARS - No deformities of external structures noted on gross examination bilaterally. External auditory canals without discharge or otorrhea. Tympanic membranes pearly walsh without retraction or bulging. No fluid or purulent material visualized behind the TM. Handle of malleus, umbo, cone of light, pars tensa/flaccid all easily visualized. NOSE - Midline and without cyanosis. No epistaxis or purulent drainage noted. Septum midline without deviation or septal hematoma noted. MOUTH/OROPHARYNX - Without perioral cyanosis. Buccal mucosa pink and moist and without leukoplakia. Tongue midline with equal elevation of palate bilaterally. No tonsillar hypertrophy, erythema, or exudates noted. Good dentition noted. NECK - Neck with FROM. Supple to palpation. No lymphadenopathy noted. No nuchal rigidity. LUNGS - Chest wall symmetric without accessory muscle use, intercostals retractions, or central cyanosis. Normal vesicular breath sounds CTA B/L. No wheezes, rales, or rhonchi appreciated. CARDIAC - IRR. MSK -there is reproducible tenderness to palpation overlying the inferior paraspinous musculature just superior to the SI joint and surrounding region. No right lateral hip tenderness. ABDOMEN - Abdominal contour normal without pulsations or visible masses. BS normoactive all four quadrants. No tenderness, palpable masses, hepatosplenomegaly, or ascites noted. EXTREMITIES - No clubbing or peripheral cyanosis. +5/5 strength noted in UE/LE bilaterally. Negative straight leg raise. Patellar reflexes within normal limits bilaterally. NEUROLOGIC - Cranial nerves grossly intact. PSYCH -alert, oriented and pleasant on exam. Course Administered Medications Discontinued Medications Ioversol (Optiray 320 100ml) 93 ml IV ONCE ONE Stop: 10/20/24 10:27 Last Admin: 10/20/24 10:27 Dose: 93 ml Documented By: CYNDY Lidocaine (Lidocaine 5% 1 Patch) 1 patch TD NOW STA Stop: 10/20/24 09:13 Last Admin: 10/20/24 09:26 Dose: 1 patch Documented By: KRUNAL Morphine Sulfate (Morphine Sulfate 2 Mg/Ml Carp) 1 mg IV NOW STA Stop: 10/20/24 08:56 Last Admin: 10/20/24 09:26 Dose: 1 mg Documented By: KRUNAL Morphine Sulfate (Morphine Sulfate 2 Mg/Ml Carp) 1 mg IV NOW STA Stop: 10/20/24 10:56 Last Admin: 10/20/24 11:12 Dose: 1 mg Documented By: LUIS MANUEL Ondansetron HCl (Ondansetron Inj 2 Mg/Ml 2 Ml Vial) 4 mg IV NOW STA Stop: 10/20/24 08:56 Last Admin: 10/20/24 09:26 Dose: 4 mg Documented By: KRUNAL Medical Decision Making Laboratory Data 10/20/24 09:09 10/20/24 09:09 Lab Results 10/20/24 10/20/24 Range/Units 09:09 11:03 WBC 5.22 (4.8-10.8) K/ul RBC 4.24 (4.20-5.40) M/uL Hgb 13.3 (12.0-16.0) g/dl Hct 39.1 (37.0-47.0) % MCV 92.2 (80.0-100.0) fL MCH 31.4 (25.0-34.0) pg MCHC 34.0 (32.0-36.0) g/dL RDW Std Deviation 42.4 (36.4-46.3) fL RDW Coeff of Maureen 12.7 (11.5-14.5) % Plt Count 265 (130-400) K/uL MPV 10.4 (9.4-12.4) fL Immature Gran % (Auto) 0.2 % Neut % (Auto) 54.4 % Lymph % (Auto) 36.2 % [place] % (Auto) 6.1 % Eos % (Auto) 2.9 % Baso % (Auto) 0.2 % Neut # (Auto) 2.84 (1.40-6.50) K/uL Lymph # (Auto) 1.89 (1.20-3.40) K/uL [place] # (Auto) 0.32 (0.11-0.59) K/uL Eos # (Auto) 0.15 (0.00-0.50) K/uL Baso # (Auto) 0.01 (0.00-0.20) K/uL Immature Gran # (Auto) 0.01 (0.01-0.20) K/uL Sodium 141 (136-145) mmol/L Potassium 3.9 (3.5-5.1) mmol/L Chloride 102 (98-107) mmol/L Carbon Dioxide 32 (21-32) mmol/L Anion Gap 7 (3-11) BUN 14 (6-23) mg/dl Creatinine 0.70 (0.6-1.2) mg/dl Est Cr Clr Drug Dosing Not Reportable eGFR 89.02 BUN/Creatinine Ratio 20.0 (10-20) Glucose 122 H (70-99(Fasting)) mg/dl Calcium 9.6 (8.6-10.3) mg/dl Total Bilirubin 0.7 (0.2-1.0) mg/dl AST 18 (13-39) U/L ALT 18 (7-52) U/L Alkaline Phosphatase 68 (34-104) U/L Total Protein 7.1 (6.0-8.3) gm/dl Albumin 4.5 (3.4-5.0) gm/dl Globulin 2.6 (2.5-4.0) gm/dl Albumin/Globulin Ratio 1.7 (0.9-2) Urine Color Yellow Urine Appearance Clear (Clear) Urine pH 6.0 (4.5-7.5) Ur Specific [place] 1.037 H (1.000-1.030) Urine Protein Negative (Negative) Urine Glucose (UA) Negative (Negative) Urine Ketones Negative (Negative) Urine Blood Negative (Negative) Urine Nitrite Negative (Negative) Urine Bilirubin Negative (Negative) Urine Urobilinogen Negative (Negative) Ur Leukocyte Esterase Negative (Negative) Imaging Data Radiologist's Impression: Abdomen/Pelvis CT 10/20/24 08:55 CT OF THE ABDOMEN AND PELVIS WITH CONTRAST CLINICAL HISTORY: Right low back pain, anticoagulated, remote fall. COMPARISON STUDY: CT of the abdomen and pelvis October 09, 2024. TECHNIQUE: Following IV administration of 93 mL of Optiray, axial images of the abdomen and pelvis were obtained from the lung bases to the proximal femurs. Images were reviewed in the axial, sagittal, and coronal planes. IV contrast was administered without complication. Automated exposure control was utilized for the study. A dose lowering technique was utilized adhering to the principles of ALARA. CT DOSE: 1291.93 mGy.cm FINDINGS: A healing lateral right seventh rib fracture is again noted. No pneumatosis, free air or portal venous gas is present. Hypodense subcentimeter hepatic lesions favor cysts. There is no biliary or pancreatic ductal dilatation. There is no peripancreatic or pericholecystic infiltration. A 2.7 cm right lower pole water attenuation renal lesion represents a cyst. Innumerable additional subcentimeter bilateral renal lesions are too small to characterize but favor cysts. A 3 mm calcific density along the anterior wall of the proximal right ureter image 147 is unchanged. There is no hydronephrosis. Images of the pelvis are degraded by streak artifact from bilateral hip arthroplasties. There is no evidence for a bowel obstruction. The caliber and wall thickness of small and large bowel are normal. There is no lymphadenopathy. There are no fluid collections. No acute lumbar spine, pelvic or hip fractures are identified. Colonic diverticulosis without evidence for acute diverticulitis. There is no retroperitoneal hematoma. No hemoperitoneum is present. Moderate atherosclerotic calcification within the abdominal aorta and branch vessels is present. IMPRESSION: 1. No acute process within the abdomen or pelvis. 2. No bowel obstruction. No bowel wall thickening. Sigmoid diverticulosis. No evidence for acute diverticulitis. 3. Healing subacute lateral right seventh rib fracture. 4. 3 mm calcification along anterior wall of the proximal right ureter which is unchanged since prior exam. No associated hydronephrosis. This calcification appears to be within the wall of the ureter rather than the lumen. ACT 112: Negative or not required by law. Electronically signed by: Rob Kraus M.D. 10/20/2024 11:17 AM MDM Narrative Patient was seen and evaluated as above in room D03. Review was performed of triage nursing notes and vital signs. Patient presents to us today for evaluation of right low back pain. There has been no new trauma or injury since her recent ED visit where she had [place] scans and ultimately transferred to [facility]. The patient does note that on October 16 she began with right low back pain. No reported trauma or injury. On my assessment the area is tender in the right low back region. It does not radiate down the legs. She has a benign abdominal exam. Options of care were discussed with the patient. IV access with established. Labs are drawn. IV analgesia and antiemetic was ordered. I did elect to proceed with CT imaging of the abdomen/pelvis to further assess the patient's location of pain as it did develop without immediate trauma/injury to the area and the patient is also anticoagulated. Patient medicated here with IV analgesia, IV antiemetics. Labs reveal no leukocytosis or concerning anemia. No emergent metabolic disturbance. Mild hyperglycemia 122. Urinalysis does not suggest infection. There is no blood in the urine. CT scan of the abdomen/pelvis is as above per radiologist. I reviewed the findings with the patient. I also discussed the CT scan with the radiologist. I also reviewed the incidentals. Patient continues with right back pain. I do have a low suspicion for epidural hematoma at this time. I do not believe that emergent MRI is needed. No neurologic findings and no radiation into the legs. She notes that she can barely walk at home. At this time I do believe that further evaluation and management inpatient setting is warranted. Case discussed with the hospitalist service. Please refer to further documentation regarding her stay. GCS: 15 In the evaluation and treatment of this patient the following differential diagnoses were entertained: Lumbar radiculopathy, retroperitoneal hemorrhage, shingles, intra-abdominal etiology, among others. Impression & Plan Acute right-sided low back pain, Ambulatory dysfunction Discharge Plan Visit Data Chief Complaint: Back Injury/Pain Stated Complaint: BACK PAIN/INJURY ED Provider: Duran Fofana ED Midlevel Provider: Juan Diehl Discharge Problem: Acute right-sided low back pain, Ambulatory dysfunction Patient Disposition: Admitted As Inpatient Condition: Good Forms Stand Alone Forms: My [facility] Prescriptions Prescriptions: No Action rosuvastatin 5 mg tablet 5 mg PO WK Qty: 14 3RF Rx Instructions: TAKE THIS MED EVERY SUNDAY Eliquis 5 mg tablet 5 mg PO BID Qty: 180 3RF metoprolol succinate 50 mg tablet extended release 24 hr 50 mg PO DAILY Qty: 90 3RF levothyroxine [Synthroid] 100 mcg tablet 100 mcg PO DAILYBB Qty: 90 0RF Rx Instructions: MUST BE SYNTHROID risedronate 150 mg tablet 150 mg PO MONTHLY Qty: 3 0RF Hold Instructions: Hold for Holiday Rx Instructions: TAKE THIS MED THE FIRST OF EACH MONTH. ezetimibe 10 mg tablet 10 mg PO QAM Qty: 90 3RF cyanocobalamin (vitamin B-12) 1,000 mcg capsule 1,000 mcg PO HS cholecalciferol (vitamin D3) 50 mcg (2,000 unit) capsule 50 mcg PO HS acetaminophen [Tylenol] 325 mg tablet 975 mg PO TID PRN (Reason: Pain/Fever) albuterol sulfate 90 mcg/actuation HFA aerosol inhaler 1 inh inhalation QID Qty: 8.5 5RF calcium citrate 200 mg (950 mg) Tablet 200 mg PO HS pantoprazole 40 mg tablet,delayed release (DR/EC) 40 mg PO DAILY lidocaine 4 % Adhesive Patch,Medicated 1 patch TOPICAL BID PRN (Reason: Pain) losartan 100 mg tablet 100 mg PO DAILY hydrocortisone 5 mg tablet 5 mg PO UD Rx Instructions: Take 10mg by mouth in the AM and 5mg by mouth in the PM. MAY DOUBLE IN TIMES OF STRESS. Referrals Referrals: Cristobal Gamino MD [Primary Care Provider] -
[2024-10-20] MEDS: MoRPHine SULFATE 2 MG/ML CARP IV STA ×3 (09:26→16:11)
[2024-10-20] MEDS: LIDOCAINE 5% 1 PATCH TD STA (09:26)
[2024-10-20] MEDS: ONDANSETRON INJ 2 MG/ML 2 ML VIAL IV STA (09:26)
--- OUTSIDE RECORDS SUMMARY | 2024-10-20 09:35 | External Medical Summary | Summary of Care ---
Author Name Unknown Organization [facility] Address [address] [place] [address] Phone [phone] Care Team Providers Care Equipment Service Engineer Name Role Phone Cristobal Gamino MD Primary Care Provide r Reason for Visit * Reason Onset Date Comments Hospital Follow-Up 10/13/2024 Encounter Details Date Type Department Care Team (Late st Contact Info) Description 10/13/2024 Telephone General Surgery, [place] [address] [place] [address] Francoise Nguyen RN [address] [place] [address] Hospital Follow-Up Allergies Active Allergy Reactions Criticality Noted Date Comments Dobutamine Hcl 10/10/2016 Sulfa Antibiotics Hives Medium 07/04/2011 documented as of this encounter (statuses as of 10/13/2024) Medications Hydrocortisone 10 MG Oral Tablet (Cortef) Take 1 Tablet by mouth in the morning and 1 Tablet before bedtime. Active levothyroxine (SYNTHROID) 150 MCG Tablet Take 1 Tablet by mouth daily first thing in the morning. (at least 30 min prior to breakfast or other meds) Active rosuvastatin (CRESTOR) 5 MG Tablet Take 1 Tablet by mouth in the morning. Active pantoprazole (PROTONIX) 40 MG TBEC Take 1 Tablet by mouth in the morning. Active alendronate (FOSAMAX) 70 MG Tablet Take 1 Tablet by mouth once a week. Sunday Active vitamin b 12 (CYANOCOBALAMIN ) 1000 MCG TABS Take 1 Tablet by mouth in the morning. Active Vitamin D3 50 MCG (2000 UT) Oral Capsule Take 1 Capsule by mouth in the morning. Active Ezetimibe 10 MG Oral Tablet (Zetia) TAKE 1 TABLET BY MOUTH EVERY DAY IN THE MORNING Active Eliquis 5 MG Oral Tablet Take 1 Tablet by mouth in the morning and 1 Tablet before bedtime. Active Metoprolol Succinate ER 50 MG Oral Tablet Extended Release 24 Hour (toPROL XL) Take 1 Tablet by mouth in the morning. Active Risedronate Sodium 150 MG Oral Tablet (Actonel) TAKE 1 TABLET ( 150 MG ) BY MOUTH MONTHLY TAKE THIS MED THE FIRST OF EACH MONTH DIRECTED . Active Calcium 1200 0207-3405 MG-UNIT Oral Tablet Chewable Take 1 Tablet by mouth in the morning. Active One A Day Women 50 Plus Oral Tablet Take 1 Tablet by mouth in the morning. Active Magnesium Oxide 400 MG Oral Capsule Take 1 Capsule by mouth in the morning. Active Amoxicillin 500 MG Oral Capsule (Amoxil) TAKE 4 CAPSULES BY MOUTH 1 HOUR BEFORE APPOINTMENT Active Acetaminophen 325 MG Oral Tablet (Tylenol) Take 3 Tablets by mouth in the morning and 3 Tablets at noon and 3 Tablets before bedtime. 30 Tablet 10/10/2024 3:36 PM EST 4 Active oxyCODONE HCl 5 MG Oral Tablet (Oxy IR) Take 1 Tablet by mouth every 4 hours as needed for severe pain 15 Tablet 10/10/2024 3:36 PM EST 4 Active Lidocaine 4 % External Patch (Aspercreme) Place 1 Patch over 12 hours topically on the skin in the morning. 30 Patch 4 Active Docusate Sodium 100 MG Oral Capsule (Colace) Take 1 Capsule by mouth in the morning and 1 Capsule before bedtime. 30 Capsule 10/10/2024 3:36 PM EST 4 Active Sennosides 8.6 MG Oral Tablet (Senokot) Take 2 Tablets by mouth in the morning and 2 Tablets before bedtime. 30 Tablet 10/10/2024 3:36 PM EST 4 Active documented as of this encounter (statuses as of 10/13/2024) Active Problems Problem Noted Date Diagnosed Date Hemothorax on right 10/10/2024 Right rib fracture 10/10/2024 Benign neoplasm of colon 01/20/2008 Overview (2008): hyperplastic; repeat colonoscopy in 3-5 yrs documented as of this encounter (statuses as of 10/13/2024) Social History Tobacco Use Types Packs/Day Years Used Date Smoking Tobacco: Never Alcohol Use Standard Drinks/Week Comments Not Currently 0 (1 standard drink = 0.6 oz pur e alcohol) Personal Safety Answer Date Recorded Do you feel unsafe or have concerns for your saf ety? No 10/09/2024 Do you have concerns for you r family's safety? (Household - for ages 0-17 years) Not on file 10/09/2024 Utilities Answer Date Recorded Do you have trouble paying y our heating, water, or electric bill? No 10/09/2024 Is your family able to pay t he heat, water, or electric bill? (Household - for ages 0-17 years) Not on file 10/09/2024 Does your family have access to good internet? (Household - for ages 0-17 years) Not on file 10/09/2024 Transportation Needs Answer Date Record ed Do you have trouble getting a ride to medical visits or work? (Adult - for ages 18 years and over) Not on file 10/09/2024 Does your family have a hard time getting a ride to doctors visits? (Household - for ages 0-17 years) Not on file 10/09/2024 Has lack of transportation k ept you from medical appointments, meetings, work, or from getting things needed for daily living? Check all that apply. No 10/09/2024 Do you (or your family) have trouble finding or paying for a ride (transportation)? (Household - for ages 0-17 years) Not on file 10/09/2024 Housing Stability Answer Date Recorded Do you currently live in a s helter or have no steady place to sleep at night? (Adult - for ages 18 years and over) Not on file 10/09/2024 Do you think you are at risk of becoming homeless? (Adult - for ages 18 years and over) Not on file 10/09/2024 Does your family worry about paying for your home or becoming homeless? (Household - for ages 0-17 years) Not on file 1 12/10/2023 Are you homeless or worried that you might be in the future? No 10/09/2024 Are you (or your family) ko eless or worried that you might be in the future? (Household - for ages 0-17 years) Not on file Food Insecurity Answer Date Recorded Do you need food for this week? No 10/09/2024 Are you able to get enough f ood for your family? (Household - for ages 0-17 years) Not on file 10/09/2024 Does your family need food t his week? (Household - for ages 0-17 years) Not on file 10/09/2024 Do you always have enough fo od for your family? (Household - for ages 0-17 years) Not on file 10/09/2024 Comments No Sex and Gender Information Value Date Recorded Sex Assigned at Not on file Legal Sex Female 6:12 AM EST Gender Identity Not on file Sexual Orientation Not on file documented as of this encounter Miscellaneous Notes * Telephone Encounter - Francoise Nguyen RN - 10/13/2024 3:06 PM EST Call placed to patient to discuss recent hospital stay. She is doing well still has some pain but only taking tylenol and no longer taking the Oxy. She is aware of her follow up with trauma. Francoise Nguyen RN, BSN, TCRN, CCRN-K Trauma Protocol Officer [facility] 10/13/2024 3:07 PM documented in this encounter Plan of Treatment Upcoming Encounters Date Type Department Care Team (Late st Contact Info) Description 10/21/2024 2:00 PM EST Telemedicine General Surgery, [place] [address] [place] [address] 620, [facility] [address] [place] [address] Health Maintenance Due Date Last Done Comments DXA Scan 1945 Depression Screening 1959 Hepatitis C Screening 1965 TSH 1965 Zoster Vaccines (1 of 2) 1997 Pneumococcal Vaccine: 65+ Years (2 of 2 - PCV) 10/22/2010 10/22/2009 Colonoscopy 07/04/2016 07/04/2011, 01/20/2008 DTap/Tdap Vaccines (2 - Td or Tdap) 11/03/2032 11/03/2022 RETIRED - COLONOSCOPY-EVERY 5 YRS AGES 18-100 Discontinued 07/04/2011, 07/04/2011, 01/20/2008 COVID-19 Vaccine Completed 08/08/2024, , 08/01/2023, Additional history exists Influenza Vaccine (FLU shot) Completed 08/08/2024, 08/01/2023, 08/16/2022, Additional history exists HPV (Gardasil) Vaccine Aged Out No lo nger eligible based on patient's age to complete this topic Hepatitis B Vaccine Aged Out No longe r eligible based on patient's age to complete this topic MENINGOCOCCAL (MENACTRA/MENVEO) Aged Out No longer eligible based on patient's age to complete this topic documented as of this encounter Medical Devices Not on filedocumented as of this encounter Advance Directives * Full Code (Latest Code Status on File) Date Activated Date Inactivated Comments 10/09/2024 3:30 PM 10/10/2024 9:26 PM This order reflects the patients wishes and were consensually agreed upon. Question Answer Comments Discussion of Advance Directives occurred with: Patient Care Teams Equipment Service Engineer Relationship Specialty Start Date End Date Cristobal Gamino MD [address] [facility] [address] [place] [address] PCP - General Family Medicine 10/09/24 documented as of this encounter
[2024-10-20 09:58] LABS: Basophils # (auto) 0.01 K/uL (0.00-0.20); Basophils % (auto) 0.2 %; Eosinophils # (auto) 0.15 K/uL (0.00-0.50); Eosinophils % (auto) 2.9 %; Hematocrit (blood only) 39.1 % (37.0-47.0); Hemoglobin 13.3 g/dl (12.0-16.0); Immature Granulocytes # (auto) 0.01 K/uL (0.01-0.20); Immature Granulocytes % (auto) 0.2 %; Lymphocytes # (auto) 1.89 K/uL (1.20-3.40); Lymphocytes % (auto) 36.2 %; Mean Corpuscular Hemoglobin 31.4 pg (25.0-34.0); Mean Corpuscular Volume 92.2 fL (80.0-100.0); Mean Platelet Volume 10.4 fL (9.4-12.4); Monocytes # (auto) 0.32 K/uL (0.11-0.59); Monocytes % (auto) 6.1 %; Neutrophils # (auto) 2.84 K/uL (1.40-6.50); Neutrophils % (auto) 54.4 %; Platelet Count 265 K/uL (130-400); RDW Coefficient of Variation 12.7 % (11.5-14.5); RDW Standard Deviation 42.4 fL (36.4-46.3); Red Blood Count 4.24 M/uL (4.20-5.40); White Blood Count 5.22 K/ul (4.8-10.8)
[2024-10-20 10:11] LABS: Alanine Aminotransferase 18 U/L (7-52); Albumin Globulin Ratio 1.7 (0.9-2); Albumin Level 4.5 gm/dl (3.4-5.0); Alkaline Phosphatase 68 U/L (34-104); Anion Gap 7 (3-11); Aspartate Aminotransferase 18 U/L (13-39); Bilirubin,Total 0.7 mg/dl (0.2-1.0); Blood Urea Nitrogen 14 mg/dl (6-23); Calcium 9.6 mg/dl (8.6-10.3); Carbon Dioxide 32 mmol/L (21-32); Chloride 102 mmol/L (98-107); Globulin 2.6 gm/dl (2.5-4.0); Glucose 122 mg/dl (70-99(Fasting)); Potassium 3.9 mmol/L (3.5-5.1); Sodium 141 mmol/L (136-145); Total Protein 7.1 gm/dl (6.0-8.3)
[2024-10-20] MEDS: OPTIRAY 320 100ml IV ONE (10:27)
--- NOTE | 2024-10-20 11:19 | CT Scan Report ---
CT OF THE ABDOMEN AND PELVIS WITH CONTRAST CLINICAL HISTORY: Right low back pain, anticoagulated, remote fall. COMPARISON STUDY: CT of the abdomen and pelvis October 09, 2024. TECHNIQUE: Following IV administration of 93 mL of Optiray, axial images of the abdomen and pelvis we re obtained from the lung bases to the proximal femurs. Images were reviewed in the axial, sagittal, and coronal planes. IV contrast was administered without complication. Automated exposure control wa s utilized for the study. A dose lowering technique was utilized adhering to the principles of ALARA . CT DOSE: 1291.93 mGy.cm FINDINGS: A healing lateral right seventh rib fracture is again noted. No pneumatosis, free air or po rtal venous gas is present. Hypodense subcentimeter hepatic lesions favor cysts. There is no biliary or pancreatic ductal dilatation. There is no peripancreatic or pericholecystic infiltration. A 2.7 cm right lower pole water attenuation renal lesion represents a cyst. Innumerable additional subcentime ter bilateral renal lesions are too small to characterize but favor cysts. A 3 mm calcific density al duncan the anterior wall of the proximal right ureter image 147 is unchanged. There is no hydronephrosis . Images of the pelvis are degraded by streak artifact from bilateral hip arthroplasties. There is no evidence for a bowel obstruction. The caliber and wall thickness of small and large bowel are normal . There is no lymphadenopathy. There are no fluid collections. No acute lumbar spine, pelvic or hip f ractures are identified. Colonic diverticulosis without evidence for acute diverticulitis. There is n o retroperitoneal hematoma. No hemoperitoneum is present. Moderate atherosclerotic calcification with in the abdominal aorta and branch vessels is present. IMPRESSION: 1. No acute process within the abdomen or pelvis. 2. No bowel obstruction. No bowel wall thickening. Sigmoid diverticulosis. No evidence for acute dive rticulitis. 3. Healing subacute lateral right seventh rib fracture. 4. 3 mm calcification along anterior wall of the proximal right ureter which is unchanged since prior exam. No associated hydronephrosis. This calcification appears to be within the wall of the ureter r ather than the lumen. ACT 112: Negative or not required by law. Electronically signed by: Rob Kraus M.D. 10/20/2024 11:17 AM
[2024-10-20 11:21] LABS: Appearance Urine Clear (Clear); Bilirubin Urine Negative (Negative); Blood Urine Negative (Negative); Color Urine Yellow; Glucose Urine UA Negative (Negative); Ketones Urine Negative (Negative); Leukocyte Esterase Urine Negative (Negative); Nitrite Urine Negative (Negative); Protein Urine Negative (Negative); Specific Gravity Urine 1.037 (1.000-1.030); Urobilinogen Urine Negative (Negative)
--- NOTE | 2024-10-20 13:04 | History & Physical Report ---
Date of Service October 20, 2024 Assessment & Plan (1) Ambulatory dysfunction: Plan: Worsening right LBP since 10/10 when patient fell and fractured her rib on her right side A/P CT on arrival is unremarkable Patient denies any fever at home; no leukocytosis; lower suspicion for epidural abscess/hematoma on admission, but would obtain MRI if clinical deterioration Hgb stable Lidocaine patch daily Acetaminophen and morphine as needed for pain PT/OT evaluations appreciated Case management consult for potential rehab upon discharge (2) Closed rib fracture: Plan: Subacute lateral right seventh rib fracture (3) Atrial fibrillation: Plan: Rate controlled Hgb stable on admission Continue Eliquis and metoprolol (4) Diabetes type 2, controlled: Plan: Last A1c at 6.9% on 04/18/2024 Not currently on diabetic medications at home Lantus 5 u every morning while inpatient SSI; with target BSG range 110-140mg/dL, CF 50, carb ratio 15 T2DM diet BSG ACHS Adjust regimen as needed AM A1c (5) Secondary adrenal insufficiency: Plan: Continue hydrocortisone BID Plan Disposition: Admit to [facility] Full code T2DM diet VTE PPx: On Eliquis History of Present Illness Chief Complaint: Back injury/pain Primary Care Provider: Cristobal Gamino MD Brittany is a pleasant 79-year-old female with PMH of atrial fibrillation (on Eliquis), dyslipidemia, HTN, hypothyroidism, 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 She presented on 10/20 for right lower back pain and ambulatory dysfunction. Patient reports that she originally fell the Sunday before (10/10) and broke right 7th rib. Patient reports she has had ongoing right lower back pain since. He was doing fine up until , when she had an acute exacerbation and thought it might been secondary to sitting in a hard chair all day. She then woke this morning, and the pain was so bad that she had difficulty walking. She normally ambulates with a cane at baseline; however this morning she required a walker. She had difficulty sleeping last night. The pain is so bad at times that she "sees stars" when moving in certain ways. When she lies still, she is okay. She rates the pain 10/10 at worst, and 4/10 without moving. She characterizes it as a baseline of dull/achiness, with sharp stabbing pain with movements. No radiation down the legs. She has been taking Tylenol at home for the pain, but this does not help. No radiation. Patient took her regular morning medicine today; only recent change was that she was taken off amlodipine. Patient manages her own medicine at home. She has had no falls since 10/10. She denies smoking, tobacco use, recent alcohol use. Patient is mildly hypertensive at 152/88 at time of admission; vitals otherwise stable. ED course: Lidocaine patch Morphine sulfate 1 mg IV x 2 Zofran 4 mg IV ROS: Patient endorses right lower back pain, and new onset ambulatory function. Patient denies fever, chills, night-sweats, dizziness, lighteadedness, CHOW, chest pain, SOB, chest palpitations, cough, abdominal pain, N/V/D, change in urinary/bowel habits, blood in the urine/stool, saddle anesthesia, or numbness/tingling/pain in the legs. Allergies Allergy/AdvReac Type Severity Reaction Status Date / Time Sulfa (Sulfonamide Allergy Mild RASH Verified 10/20/24 12:36 Antibiotics) dobutamine AdvReac Severe ST Verified 10/20/24 12:36 ELEVATION, CHEST PAIN Home Medications Medication Instructions Recorded Confirmed Type cholecalciferol (vitamin D3) 50 50 mcg PO HS 10/27/19 10/20/24 History mcg (2,000 unit) capsule cyanocobalamin (vitamin B-12) 1,000 mcg PO HS 10/27/19 10/20/24 History 1,000 mcg capsule calcium citrate 200 mg PO HS 08/14/22 10/20/24 History rosuvastatin 5 mg tablet 5 mg PO WK #14 tabs 10/10/23 10/20/24 Rx albuterol sulfate 90 mcg/actuation 1 inh inhalation QID #8.5 grams 03/14/24 10/20/24 Rx aerosol inhaler apixaban 5 mg tablet (Eliquis) 5 mg PO BID #180 tabs 04/21/24 10/20/24 Rx Synthroid 100 mcg tablet 100 mcg PO DAILYBB #90 tabs 06/24/24 10/20/24 Rx (levothyroxine) metoprolol succinate 50 mg 50 mg PO DAILY #90 tabs 06/24/24 10/20/24 Rx tablet,extended release 24 hr risedronate 150 mg tablet 150 mg PO MONTHLY #3 tabs 09/12/24 10/20/24 Rx pantoprazole 40 mg tablet,delayed 40 mg PO DAILY 10/09/24 10/20/24 History release acetaminophen 325 mg tablet 975 mg PO TID PRN Pain/Fever 10/13/24 10/20/24 H istory (Tylenol) ezetimibe 10 mg tablet 10 mg PO QAM #90 tabs 10/16/24 10/20/24 Rx hydrocortisone 5 mg tablet 5 mg PO UD 10/20/24 10/20/24 History lidocaine 4 % topical patch 1 patch topical BID PRN Pain 10/20/24 10/20/24 History losartan 100 mg tablet 100 mg PO DAILY 10/20/24 10/20/24 History Past Med/Surg History Problem List (Updated 10/20/24 @ 15:38 by Background Daemon) Ambulatory dysfunction (Acute) Acute right-sided low back pain (Acute) Ambulatory dysfunction Closed fracture of a rib (Acute ~10/09/24) Fractured lateral aspect Right 7th rib from a fall Pleural effusion (Acute) Closed rib fracture (Acute 10/09/24) Fracture lateral aspect right 7th rib from a fall. 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 Atrial fibrillation GERD (gastroesophageal reflux disease) Osteoporosis Cardiac pacemaker Bradycardia, severe sinus (Acute) Abnormal mammogram History of acromegaly Medical History (Updated 10/20/24 @ 15:38 by Background Daemon) History of hip fracture (09/14/19) Left hip Chronic diarrhea Vitamin D deficiency History of CVA (cerebrovascular accident) Due to embolism Schatzki's ring of distal esophagus Surgical History History of colonoscopy History of esophagogastroduodenoscopy (EGD) H/O craniotomy H/O dilation and curettage H/O total hip arthroplasty right and left History of tonsillectomy Hx of tubal ligation Hx of cataract surgery right and left History of hypophysectomy Family History Father Colon cancer Diabetes Myocardial infarction Colorectal cancer Stroke Mother ASCVD (arteriosclerotic cardiovascular disease) Lymphoma Father Colorectal cancer Grandfather (Paternal) Diabetes Daughter Cervical cancer Grandmother (Maternal) Cervical cancer Other Family history non-contributory No family history of adverse response to anesthesia Denies family history of Crohn's disease Social History Smoking Status: Never smoker Second Hand Exposure: No; Do You Dip or Chew Tobacco: No; Hx Alcohol Use: No Hx Substance Use: No Preferred Language: [place] Communication Ability: Effective Senior Planning Manager Required: No Beliefs That Will Affect Care: None marital status: Current Living Situation: Spouse current occupational status: retired Feels Safe at Home: Yes Assistive Devices: Stair Lift Review of Systems Review of Systems: See HPI above Physical Exam Physical Exam: General: Mild physical distress secondary to right lower back pain; pleasant affect; non-toxic appearing; well-nourished; cooperative; SpO2 97% on RA HEENT: normocephalic, atraumatic; no scleral icterus; PERRLA w/ EOMs intact; vision and hearing grossly intact Neck: supple; no lymphadenopathy; trachea midline Skin: warm, dry without signs of tenting; no cyanosis; no rashes, bruising, lesions, or erythema noted CV: chest wall NTP; RRR; S1/S2 normal; no murmurs/rubs/gallops; pulses intact and symmetric at radial, DP, and PT Lungs: no acute respiratory distress; symmetrical chest wall expansion; clear breath sounds across all lung herrera w/o adventitious sounds; no wheezing ABD: Soft, NTP; BS present; no rebound/guarding; no distention Back: Lidocaine patch in place; right lower back is mildly TTP; no bruises or rashes appreciated on the right lower back or flank; (+) right sided leg lift; (-) left-sided leg lift MSK: no tics or fasciculations; no edema noted in the LEs b/l, nonerythematous; patient demonstrates ability to wiggle toes/plantarflex/dorsiflex the lower EXTR bilaterally Neuro: A&Ox3; normal mood and affect; fluent speech; no focal deficits; patient reports sensation is intact and symmetric in lower EXTR bilaterally assessed via light touch Results & Data Results & Data Vital Signs (Past 12 Hours) Vital Signs Temp Pulse Pulse Resp BP BP Pulse Ox 10/20/24 11:00 67 16 152/88 H 95 10/20/24 09:22 62 18 164/93 H 95 10/20/24 09:17 63 10/20/24 08:40 36.7 C 80 18 186/75 H 95 O2 Del Method 10/20/24 11:00 Room Air 10/20/24 09:22 Room Air 10/20/24 09:17 10/20/24 08:40 Room Air Laboratory Results Abnormal lab results 10/20/24 10/20/24 Range/Units 09:09 11:03 Glucose 122 H (70-99(Fasting)) mg/dl Ur Specific [place] 1.037 H (1.000-1.030) Diagnostic Findings Abdomen/Pelvis CT 10/20/24 08:55 CT OF THE ABDOMEN AND PELVIS WITH CONTRAST CLINICAL HISTORY: Right low back pain, anticoagulated, remote fall. COMPARISON STUDY: CT of the abdomen and pelvis October 09, 2024. TECHNIQUE: Following IV administration of 93 mL of Optiray, axial images of the abdomen and pelvis were obtained from the lung bases to the proximal femurs. Images were reviewed in the axial, sagittal, and coronal planes. IV contrast was administered without complication. Automated exposure control was utilized for the study. A dose lowering technique was utilized adhering to the principles of ALARA. CT DOSE: 1291.93 mGy.cm FINDINGS: A healing lateral right seventh rib fracture is again noted. No pneumatosis, free air or portal venous gas is present. Hypodense subcentimeter hepatic lesions favor cysts. There is no biliary or pancreatic ductal dilatation. There is no peripancreatic or pericholecystic infiltration. A 2.7 cm right lower pole water attenuation renal lesion represents a cyst. Innumerable additional subcentimeter bilateral renal lesions are too small to characterize but favor cysts. A 3 mm calcific density along the anterior wall of the proximal right ureter image 147 is unchanged. There is no hydronephrosis. Images of the pelvis are degraded by streak artifact from bilateral hip arthroplasties. There is no evidence for a bowel obstruction. The caliber and wall thickness of small and large bowel are normal. There is no lymphadenopathy. There are no fluid collections. No acute lumbar spine, pelvic or hip fractures are identified. Colonic diverticulosis without evidence for acute diverticulitis. There is no retroperitoneal hematoma. No hemoperitoneum is present. Moderate atherosclerotic calcification within the abdominal aorta and branch vessels is present. IMPRESSION: 1. No acute process within the abdomen or pelvis. 2. No bowel obstruction. No bowel wall thickening. Sigmoid diverticulosis. No evidence for acute diverticulitis. 3. Healing subacute lateral right seventh rib fracture. 4. 3 mm calcification along anterior wall of the proximal right ureter which is unchanged since prior exam. No associated hydronephrosis. This calcification appears to be within the wall of the ureter rather than the lumen. ACT 112: Negative or not required by law. Electronically signed by: Rob Kraus M.D. 10/20/2024 11:17 AM Code Status & VTE Plan Code Status Full code Supervising Physician Co-Signing Physician Notes I personally examined the patient and verified all jang points of history and exam, discussed case, and agree with decision making with Maximiliano Hall PA-C Right-sided low back pain. No new injury. Cannot really get around. Vitals noted, in general she is pleasant and in no distress, but appears to be quite antalgic whenever she moves. Biomechanical/osteopathic structural exam shows her right-sided piriformis to be high tone, tender, decreased range of abhijit onLAS done, taught how to do post isometric relaxation. Both affected a degree of soft tissue improvement. She did have a degree of SI joint and paraspinal tendernessbut far less than in her piriformis region. Low back painbiomechanical, piriformis driven. OMT as above. Mag and Valium as muscle relaxant, scheduled Tylenol/Toradol. Voltaren gel. PT/OT eval and treat. Anticoagulated. Otherwise as above PG Care Time/CCT Total # of Minutes Spent Total Time Spent with Patient: Total time spent is greater than 50% in coordination of care (as documented) at patient's floor/unit and/or counseling patient: Coding [place] [address] INT INP/OBS CARE 3/75MIN Patient Type Established Medical Decision Making Moderate Complexity Diagnoses Ambulatory dysfunction R26.2 Closed rib fracture S22.39XA Encounter type: initial encounter Laterality: unspecified laterality Rib fracture type: single rib Atrial fibrillation I48.91 Diabetes type 2, controlled E11.9 Secondary adrenal insufficiency E27.49 (2) Closed rib fracture Encounter type: initial encounter Laterality: unspecified laterality Rib fracture type: single rib Qualified Code(s): S22.39XA - Fracture of one rib, unspecified side, initial encounter for closed fracture
[2024-10-20] MEDS ORDERED: ONDANSETRON INJ 2 MG/ML 2 ML VIAL IV PRN (15:51)
[2024-10-20] MEDS ORDERED: GLUCOSE 10 TAB/TUBE PO PRN (15:51)
[2024-10-20] MEDS ORDERED: DEXTROSE 50% 50 ML SYRINGE IV PRN (15:51)
[2024-10-20] MEDS ORDERED: GLUCOSE 40% GEL 15 GM TUBE PO PRN (15:51)
[2024-10-20] MEDS ORDERED: ACETAMINOPHEN 325 MG TAB PO PRN (15:51)
[2024-10-20] MEDS ORDERED: CARBOHYDRATES FOR HYPOGLYCEMIA PO PRN (15:51)
[2024-10-20] MEDS ORDERED: GLUCAGON FOR INJ 1 MG VIAL SQ PRN (15:51)
[2024-10-20] MEDS ORDERED: MoRPHine SULFATE 2 MG/ML CARP IV PRN (15:51)
[2024-10-20] MEDS: ALBUTEROL HFA 8 GM INHALER INH SCH (16:11)
[2024-10-20] MEDS: INSULIN ASPART PER UNIT CHARGE SC SCH (16:11)
[2024-10-20] MEDS: MAGNESIUM SULFATE / D5W 1 GM/100 ML BAG IV SCH (17:34)
[2024-10-20] MEDS: DICLOFENAC SOD 1% GEL 100 GM TUBE EXT SCH (17:34)
[2024-10-20] MEDS: KETOROLAC TROMETHAMINE 15 MG/ML VIAL IV SCH (17:35)
[2024-10-20] MEDS: HYDROCORTISONE 10 MG TAB PO SCH (20:19)
[2024-10-20] MEDS: ACETAMINOPHEN 500 MG TAB PO SCH (20:19)
[2024-10-20] MEDS: APIXABAN 5 MG TABLET PO SCH (20:19)
[2024-10-20] MEDS: diazePAM 5 MG TABLET PO SCH (20:19)
[2024-10-21] MEDS: LEVOTHYROXINE SODIUM 100 MCG TABLET PO SCH (05:22)
[2024-10-21] MEDS ORDERED: HYDROCORTISONE 10 MG TAB PO SCH (09:00)
[2024-10-21 09:30] LABS: Calcium 8.8 mg/dl (8.6-10.3); Creatinine Clr Calc Pharmacy 77.6 ml/min; Potassium 4.2 mmol/L (3.5-5.1)
[2024-10-21 09:33] LABS: Hematocrit (blood only) 36.2 % (37.0-47.0); Hemoglobin 12.3 g/dl (12.0-16.0); Mean Corpuscular Hemoglobin 31.4 pg (25.0-34.0); Mean Corpuscular Volume 92.3 fL (80.0-100.0); Mean Platelet Volume 10.7 fL (9.4-12.4); Platelet Count 224 K/uL (130-400); RDW Coefficient of Variation 12.4 % (11.5-14.5); RDW Standard Deviation 41.7 fL (36.4-46.3); Red Blood Count 3.92 M/uL (4.20-5.40); White Blood Count 5.63 K/ul (4.8-10.8)
[2024-10-21] MEDS: LOSARTAN POTASSIUM 50 MG TAB PO SCH (09:34)
[2024-10-21] MEDS: HYDROCORTISONE 10 MG TAB PO SCH (09:36)
[2024-10-21] MEDS: EZETIMIBE 10 MG TAB PO SCH (09:36)
[2024-10-21] MEDS: PANTOprazole 40 MG TAB PO SCH (09:36)
[2024-10-21] MEDS: METOPROLOL SUCC 50MG EXT REL TAB PO SCH (09:36)
[2024-10-21] MEDS: LANTUS PER UNIT CHARGE SQ SCH (09:46)
[2024-10-21 10:24] LABS: Estimated Average Glucose 146 mg/dl; Hemoglobin A1C 6.7 % (4.5-5.6)
[2024-10-21] MEDS: LIDOCAINE 5% 1 PATCH TD SCH (11:29)
[2024-10-21 15:49] VITALS: BP 106/54; PULSE 65; RESP 18; TEMP 98.4; O2SAT 95
--- NOTE | 2024-10-23 14:27 | Discharge Summary ---
Discharge Summary Date of Service October 23, 2024 Principal Dx & Hospital Course #1 = Principal Diagnosis (1) Ambulatory dysfunction: Worsening right LBP since 10/10 when patient fell and fractured her rib on her right side A/P CT on arrival is unremarkable Patient denies any fever at home; no leukocytosis; lower suspicion for epidural abscess/hematoma on admission, but would obtain MRI if clinical deterioration Acetaminophen and morphine as needed for pain PT/OT evaluations appreciated Case management consult for potential rehab - patient preferred to be discharged home prior to PT eval / therapy at home arranged (2) Closed rib fracture: Subacute lateral right seventh rib fracture (3) Atrial fibrillation: Rate controlled Hgb stable on admission Continue Eliquis and metoprolol (4) Diabetes type 2, controlled: Last A1c at 6.9% on 04/18/2024 Not currently on diabetic medications at home Lantus 5 u every morning while inpatient SSI; with target BSG range 110-140mg/dL, CF 50, carb ratio 15 T2DM diet BSG ACHS (5) Secondary adrenal insufficiency: Continue hydrocortisone BID Plan Disposition: Admit to [facility] Full code T2DM diet VTE PPx: On Eliquis Admission HPI Per Admitting Provider Brittany is a pleasant 79-year-old female with PMH of atrial fibrillation (on Eliquis), dyslipidemia, HTN, hypothyroidism, 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 She presented on 10/20 for right lower back pain and ambulatory dysfunction. Patient reports that she originally fell the Sunday before (10/10) and broke right 7th rib. Patient reports she has had ongoing right lower back pain since. He was doing fine up until , when she had an acute exacerbation and thought it might been secondary to sitting in a hard chair all day. She then woke this morning, and the pain was so bad that she had difficulty walking. She normally ambulates with a cane at baseline; however this morning she required a walker. She had difficulty sleeping last night. The pain is so bad at times that she "sees stars" when moving in certain ways. When she lies still, she is okay. She rates the pain 10/10 at worst, and 4/10 without moving. She characterizes it as a baseline of dull/achiness, with sharp stabbing pain with movements. No radiation down the legs. She has been taking Tylenol at home for the pain, but this does not help. No radiation. Patient took her regular morning medicine today; only recent change was that she was taken off amlodipine. Patient manages her own medicine at home. She has had no falls since 10/10. She denies smoking, tobacco use, recent alcohol use. Patient is mildly hypertensive at 152/88 at time of admission; vitals otherwise stable. ED course: Lidocaine patch Morphine sulfate 1 mg IV x 2 Zofran 4 mg IV ROS: Patient endorses right lower back pain, and new onset ambulatory function. Patient denies fever, chills, night-sweats, dizziness, lighteadedness, CHOW, chest pain, SOB, chest palpitations, cough, abdominal pain, N/V/D, change in urinary/bowel habits, blood in the urine/stool, saddle anesthesia, or numbness/tingling/pain in the legs. Discharge Plan Discharge Items Patient Disposition: Home - Self-Care Reason For Visit: AMBULATORY DYSFUNCTION Discharge Diagnosis: Back pain Condition on Discharge: Good Activity: Resume your previous activity Activity Comment: FOLLOW PT/OT RECOMMENDATIONS Non-emergency contact: Primary Care Provider Call non-emergency contact if: you have any medication questions, your symptoms worsen and your pain is not controlled Follow-up/Referrals: Cristobal Gamino MD [Primary Care Provider] - 10/28/24 2:30 pm (Scheduled w/ Agata Linares PA-C) Diet: Regular Addtl Attending Provider Instructions: Outpatient PT/OT Pending Studies at Discharge: No Stand-Alone Forms: [facility] [facility], Smoking Cessation Medications and DC Order Prescriptions: New diclofenac sodium [Voltaren Arthritis Pain] 1 % Gel 2 g EXT QID Qty: 60 0RF oxycodone 5 mg tablet 5 mg PO Q6H PRN (Reason: pain) Qty: 20 0RF Continued rosuvastatin 5 mg tablet 5 mg PO WK Qty: 14 3RF Rx Instructions: TAKE THIS MED EVERY SUNDAY Eliquis 5 mg tablet 5 mg PO BID Qty: 180 3RF metoprolol succinate 50 mg tablet extended release 24 hr 50 mg PO DAILY Qty: 90 3RF levothyroxine [Synthroid] 100 mcg tablet 100 mcg PO DAILYBB Qty: 90 0RF Rx Instructions: MUST BE SYNTHROID risedronate 150 mg tablet 150 mg PO MONTHLY Qty: 3 0RF Hold Instructions: Hold for Holiday Rx Instructions: TAKE THIS MED THE FIRST OF EACH MONTH. ezetimibe 10 mg tablet 10 mg PO QAM Qty: 90 3RF cyanocobalamin (vitamin B-12) 1,000 mcg capsule 1,000 mcg PO HS cholecalciferol (vitamin D3) 50 mcg (2,000 unit) capsule 50 mcg PO HS acetaminophen [Tylenol] 325 mg tablet 975 mg PO TID PRN (Reason: Pain/Fever) albuterol sulfate 90 mcg/actuation HFA aerosol inhaler 1 inh inhalation QID Qty: 8.5 5RF calcium citrate 200 mg (950 mg) Tablet 200 mg PO HS pantoprazole 40 mg tablet,delayed release (DR/EC) 40 mg PO DAILY lidocaine 4 % Adhesive Patch,Medicated 1 patch TOPICAL BID PRN (Reason: Pain) losartan 100 mg tablet 100 mg PO DAILY hydrocortisone 5 mg tablet 5 mg PO UD Rx Instructions: Take 10mg by mouth in the AM and 5mg by mouth in the PM. MAY DOUBLE IN TIMES OF STRESS. Discharge Orders: Discharge Order (Routine); Ordered 10/21/24 Ordered By: Melinda Baez/Other Patient Handouts: Managing Type 2 Diabetes, Healthy Meals for Diabetes Admission Data Admit Date/Time: 10/20/24 13:50 Attending Provider: Melinda Garcia Admit Provider: Sal Bowles Primary Care Provider: Cristobal Gamino Other Providers: [facility] Other Interventions: Discharge Summary Assessment (RN) Last Done: 10/21/24 16:25 Hospital Stay Data Consultations 10/20/24 11:44 ED Decision to Admit Stat Diagnostic Imagining Performed 10/20/24 08:55 CT abd pelvis IV con only Stat Pending Results Patient Have Any Pending Studies at Discharge: No Discharge Instructions Given to Patient (Per Discharging Provider) Outpatient PT/OT Total Time Total Time Spent Total Time Spent (In Minutes): 35 min Coding Level of Care Code 90131 INP/OBS DISCH >30 MIN Diagnoses Ambulatory dysfunction R26.2 Closed rib fracture S22.39XA Encounter type: initial encounter Laterality: unspecified laterality Rib fracture type: single rib Atrial fibrillation I48.91 Diabetes type 2, controlled E11.9 Secondary adrenal insufficiency E27.49
== END 2024-10-21 17:23 | disposition home or self-care (01) | DRG 206 ==
LOC: ED 08:33 → EDINP 13:50 → SUATTDRO 13:50 → 3N 15:51
DX: E11.9 Type 2 diabetes mellitus without complications; Z88.8 Allergy status to other drugs, medicaments and biological substances; E78.5 Hyperlipidemia, unspecified; E03.9 Hypothyroidism, unspecified; S22.31XA Fracture of one rib, right side, initial encounter for closed fracture; X58.XXXA Exposure to other specified factors, initial encounter; Z95.0 Presence of cardiac pacemaker; I48.91 Unspecified atrial fibrillation; Z88.2 Allergy status to sulfonamides; Z79.890 Hormone replacement therapy; Z79.899 Other long term (current) drug therapy; K21.9 Gastro-esophageal reflux disease without esophagitis; R26.9 Unspecified abnormalities of gait and mobility; I10 Essential (primary) hypertension; E27.40 Unspecified adrenocortical insufficiency; Z79.01 Long term (current) use of anticoagulants

== ENCOUNTER 2025-08-04 10:16 | Inpatient (IN) ==
--- NOTE | 2025-08-04 10:37 | Emergency Department Note ---
ED Visit Note I was consulted by the Advanced Practice Provider, VINOD Lee. I personally made/approved the management plan and take responsibility for the patient management. I performed a substantive portion of the visit. This includes the aspects of: -History/Physical/Personally seeing the patient -MDM .
--- NOTE | 2025-08-04 10:44 | Emergency Department Note ---
ED Provider Note History of Present Illness Chief Complaint: Back Injury/Pain Stated Complaint: BACK PAIN, UNABLE TO VOID Time Seen by Provider: 08/04/25 10:26 Source: patient and family Mode of arrival: ambulatory Limitations: no limitations Patient is a 80-year-old female who presents to the emergency department with complaints of continued back pain. Patient was seen in the emergency department 2 weeks ago after she had a fall out of bed and had traumatic injury to her back. Patient had x-rays completed at that time and was negative for any fracture or subluxation. Patient returned to the emergency department 2 days ago with complaints of continued pain uncontrolled at home with [id number] pain medication. Patient was advised to return to the emergency department should she develop any new concerning or worsening symptoms such as intractable pain, numbness or loss of bladder or bowel. Patient reports that this morning she started having loss of her bowel control and bladder control. Patient reports that she is unable to control it at this time. Patient also notes significant pain that is uncontrolled with the Percocet that she was prescribed 2 days ago. Patient presents to the emergency department writhing in pain. Home Medications Medication Instructions Recorded Confirmed Type cyanocobalamin (vitamin B-12) 1,000 mcg PO HS 10/27/19 08/04/25 History 1,000 mcg capsule calcium citrate 200 mg PO HS 08/14/22 08/04/25 History acetaminophen 325 mg tablet 975 mg PO TID PRN Pain/Fever 10/13/24 08/04/25 History (Tylenol) ezetimibe 10 mg tablet 10 mg PO QAM #90 tabs 10/16/24 08/04/25 Rx rosuvastatin 5 mg tablet 5 mg PO WK #14 tabs 10/24/24 08/04/25 Rx losartan 100 mg tablet 100 mg PO DAILY #90 tabs 10/28/24 08/04/25 Rx OneTouch Delica Plus Lancet 33 #100 ea 02/16/25 07/28/25 Rx gauge (lancets) pantoprazole 40 mg tablet,delayed 40 mg PO DAILY #90 tabs 03/31/25 08/04/25 Rx release blood sugar diagnostic #100 ea 04/10/25 07/28/25 Rx metoprolol succinate 100 mg 100 mg PO DAILY #90 tabs 04/22/25 08/04/25 Rx tablet,extended release 24 hr cholecalciferol (vitamin D3) 125 125 mcg PO DAILY #30 caps 04/28/25 08/04/25 Rx mcg (5,000 unit) capsule cholecalciferol (vitamin D3) 25 25 mcg PO DAILY #30 caps 04/28/25 08/04/25 Rx mcg (1,000 unit) capsule pen needle, diabetic 31 gauge x #100 ea 05/07/25 07/28/25 Rx 3/16" teriparatide 20 mcg/dose (560 20 mcg (0.08 mL) subcut DAILY 05/07/25 08/04/25 Rx mcg/2.24 mL) subcutaneous pen #6.72 mL injector (Forteo) Synthroid 100 mcg tablet 100 mcg PO PM #90 tabs 05/14/25 08/04/25 Rx (levothyroxine) apixaban 5 mg tablet (Eliquis) 5 mg PO BID #180 tabs 06/01/25 08/04/25 Rx magnesium oxide 400 mg (241.3 mg 400 mg PO DAILY #90 tabs 06/12/25 08/04/25 Rx magnesium) tablet (MagOx) methocarbamol 500 mg tablet 500 mg PO Q8H PRN muscle spasm #30 07/28/25 08/04/25 Rx tabs oxycodone 5 mg tablet 5 mg PO Q8H PRN pain #20 tabs 07/28/25 08/04/25 Rx albuterol sulfate 90 mcg/actuation 1 inh inhalation QID PRN Shortness 08/03/25 08/04/25 History aerosol inhaler Of Breath Or Wheezing hydrocortisone 5 mg tablet 5 mg PO QPM 08/03/25 08/04/25 History hydrocortisone 5 mg tablet 10 mg PO QAM 08/03/25 08/04/25 History mometasone 0.1 % topical cream 1 applic topical DAILY PRN Skin 08/03/25 08/04/25 History Irritation oxycodone-acetaminophen 5 mg-325 1 tab PO Q4H PRN pain #14 tabs 08/03/25 08/04/25 Rx mg tablet (Percocet) Allergies Allergy/AdvReac Type Severity Reaction Status Date / Time Sulfa (Sulfonamide Allergy Mild RASH Verified 08/03/25 00:10 Antibiotics) dobutamine AdvReac Severe ST Verified 08/03/25 00:10 ELEVATION, CHEST PAIN Past Med/Surg History Problem List (Updated 08/05/25 @ 17:08 by VINOD Rivers) Low back pain (Acute) Back pain (Acute) Secondary adrenal insufficiency Diabetes type 2, controlled Contact dermatitis Allergic rhinitis Ambulatory dysfunction (Acute) Osteoarthritis Sinusitis Asthmatic bronchitis with acute exacerbation SSS (sick sinus syndrome) Chronic anticoagulation Dyslipidemia Hypertension 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 GERD (gastroesophageal reflux disease) Osteoporosis Cardiac pacemaker Bradycardia, severe sinus (Acute) Abnormal mammogram History of acromegaly Medical History Fracture, sacrum/coccyx (~02/28/24) from a fall Closed fracture of a rib (~10/09/24) Fractured lateral aspect Right 7th rib from a fall Atrial fibrillation History of hip fracture (09/14/19) Left hip Chronic diarrhea Vitamin D deficiency History of CVA (cerebrovascular accident) Due to embolism Schatzki's ring of distal esophagus Surgical History History of colonoscopy History of esophagogastroduodenoscopy (EGD) H/O craniotomy H/O dilation and curettage H/O total hip arthroplasty right and left History of tonsillectomy Hx of tubal ligation Hx of cataract surgery right and left History of hypophysectomy Family History Father Colon cancer Diabetes Myocardial infarction Colorectal cancer Stroke Mother ASCVD (arteriosclerotic cardiovascular disease) Lymphoma Father Colorectal cancer Grandfather (Paternal) Diabetes Daughter Cervical cancer Grandmother (Maternal) Cervical cancer Other Family history non-contributory No family history of adverse response to anesthesia Denies family history of Crohn's disease Social History Smoking Status: Never smoker Second Hand Exposure: No; Do You Dip or Chew Tobacco: No; Hx Alcohol Use: No Hx Substance Use: No Preferred Language: Hebrew Communication Ability: Effective 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 Required: No Beliefs That Will Affect Care: None marital status: Current Living Situation: Spouse current occupational status: retired Feels Safe at Home: Yes Assistive Devices: Cane, Stair Lift, Walker, Wheelchair and Other Physical Exam Vital Signs Vital Signs - 24 hr 08/04/25 10:19 08/04/25 13:30 Temperature 36.6 C Temperature Source Temporal Artery Scan Pulse Rate 68 Pulse Rate [Right Finger] 56 L Respiratory Rate 18 17 Respiratory Effort / Characteristics Non-Labored Spontaneous Respiratory Depth Normal Blood Pressure 171/83 H Blood Pressure [Right Arm] 179/97 H Blood Pressure Mean 112 Blood Pressure Mean [Right Arm] 124 Blood Pressure Position Sitting Pulse Oximetry 95 97 Oxygen Delivery Method Room Air Nasal Cannula Oxygen Flow Rate 2 Sepsis Recent Fever Within 48 Hours No Sepsis New/Unexplained Change in Mental Status No Sepsis Action Taken by Nursing No Action Required VITAL SIGNS - Vital signs and nursing notes were reviewed. GENERAL -80-year-old female appearing her stated age and in noticeable discomfort throughout the exam. NECK - FROM of the cervical spine. ABDOMEN - Abdominal contour without pulsations or visible masses. BS normoactive all four quadrants. MUSCULOSKELETAL - ROM of the thoracic and lumbar spine region was significantly limited due to discomfort. No step-off deformities were palpated down the cervical, thoracic, or lumbar spines. Increased tenderness to Palpation experienced at the level of the lumbar spine bilaterally, but primarily on the right paraspinal muscle distribution. No reproducible tenderness to palpation across the iliac spine. NEUROLOGIC - REFLEXES: +3/4 patellar reflexes B/L, +3/4 Achilles reflexes B/L. SENSORY: Spinothalamic tract was found to be intact with ability to discriminate sharp versus dull sensation at the level of hip joint down do the great toe. No sensory defects of the dorsal column were appreciated utilizing light touch for evaluation. CEREBELLAR: Pt able to perform rapid alternating movements of the feet. EXTREMITIES - Range of Motion - No tremors, ticks, or fasciculations of the lower extremities noticed during inspection. FROM of the lower extremities. Pt able to perform straight leg raises B/L without any difficulty. Pt had + 4 strength appreciated bilaterally in the lower extremities against examiner's resistance. VASCULAR - Capillary refill of the great toe was brisk. No mottling or blanching of the extremities present. +3/5 dorsalis pedis pulses palpated bilaterally. Course Administered Medications Apixaban (Apixaban 5 Mg Tablet) 5 mg PO BID [facility] Stop: 09/03/25 20:59 Last Admin: 08/05/25 09:46 Dose: 5 mg Documented By: [facility] Admin: 08/04/25 20:12 Dose: 5 mg Documented By: ATS Calcium Citrate (Calcium Citrate 950 Mg Tab) 950 mg PO HS [facility] Stop: 09/03/25 20:59 Last Admin: 08/04/25 20:13 Dose: 950 mg Documented By: ATS Cyanocobalamin (Cyanocobalamin (B-12) 500 Mcg Tablet) 1,000 mcg PO HS [facility] Stop: 09/03/25 20:59 Last Admin: 08/04/25 20:12 Dose: 1,000 mcg Documented By: ATS Ezetimibe (Ezetimibe 10 Mg Tab) 10 mg PO QAM [facility] Stop: 09/04/25 08:59 Last Admin: 08/05/25 09:46 Dose: 10 mg Documented By: [facility] Hydrocortisone (Hydrocortisone 10 Mg Tab) 10 mg PO QAM [facility] Stop: 09/04/25 08:59 Last Admin: 08/05/25 09:47 Dose: 10 mg Documented By: [facility] Hydromorphone HCl (Hydromorphone Inj 1 Mg/Ml Syringe) 1 mg IV Q4H PRN PRN Reason: Pain Scale 6,7,8,9,10 Stop: 08/18/25 15:12 Last Admin: 08/05/25 14:48 Dose: 1 mg Documented By: FRANKLIN Co-signed By: BEVERLY Admin: 08/05/25 09:48 Dose: 1 mg Documented By: Admin: 08/05/25 04:51 Dose: 1 mg Documented By: Admin: 08/04/25 19:32 Dose: 1 mg Documented By: ATS Insulin Aspart (Insulin Aspart Per Unit Charge) 0 units SC ACHS [facility] Stop: 09/03/25 20:59 Last Admin: 08/05/25 12:55 Dose: Not Given Documented By: Admin: 08/05/25 09:45 Dose: 4 units Documented By: [facility] Co-signed By: KD Admin: 08/04/25 22:10 Dose: 1 units Documented By: ATS Co-signed By: SHEYLA Losartan Potassium (Losartan Potassium 50 Mg Tab) 100 mg PO DAILY [facility] Stop: 09/04/25 08:59 Last Admin: 08/05/25 09:47 Dose: 100 mg Documented By: [facility] Methocarbamol (Methocarbamol 500 Mg Tablet) 500 mg PO Q8H PRN PRN Reason: muscle spasm Stop: 09/03/25 15:09 Last Admin: 08/05/25 01:32 Dose: 500 mg Documented By: TASHA Metoprolol Succinate (Metoprolol Succ 50mg Ext Rel Tab) 100 mg PO DAILY [facility] Stop: 09/04/25 08:59 Last Admin: 08/05/25 09:47 Dose: 100 mg Documented By: NM Oxycodone/Acetaminophen (Oxycodone/Acetaminophen 5mg/325mg Tab) 1 tab PO Q4H PRN PRN Reason: pain Stop: 08/18/25 15:09 Last Admin: 08/05/25 09:48 Dose: 1 tab Documented By: NM Pantoprazole Sodium (Pantoprazole 40 Mg Tab) 40 mg PO DAILY [facility] Stop: 09/04/25 08:59 Last Admin: 08/05/25 09:47 Dose: 40 mg Documented By: [facility] Vitamin D (Cholecalciferol 125 Mcg (5,000 Units) Tab) 125 mcg PO DAILY [facility] Stop: 09/04/25 08:59 Last Admin: 08/05/25 09:46 Dose: 125 mcg Documented By: [facility] Vitamin D (Cholecalciferol 25 Mcg (1000 Units) Tab) 25 mcg PO DAILY [facility] Stop: 09/04/25 08:59 Last Admin: 08/05/25 09:47 Dose: 25 mcg Documented By: KARLA Discontinued Medications Hydromorphone HCl (Hydromorphone Inj 0.5 Mg/0.5 Ml Syr) 0.5 mg IV NOW STA Stop: 08/04/25 10:46 Last Admin: 08/04/25 10:53 Dose: 0.5 mg Documented By: CAP Hydromorphone HCl (Hydromorphone Inj 0.5 Mg/0.5 Ml Syr) 0.5 mg IV NOW STA Stop: 08/04/25 13:18 Last Admin: 08/04/25 13:30 Dose: 0.5 mg Documented By: ML Acetaminophen (Ofirmev) 1,000 mg in 100 mls @ 400 mls/hr IV NOW STA Stop: 08/04/25 13:32 Last Infusion: 08/04/25 14:09 Dose: Infused Documented By: Admin: 08/04/25 13:30 Dose: 400 mls/hr Documented By: ML Methylprednisolone (Methylprednisolone 125 Mg/2 Ml Vial) 125 mg IV NOW STA Stop: 08/04/25 16:03 Last Admin: 08/04/25 16:42 Dose: 125 mg Documented By: AUBREE Miscellaneous (Synhroid 100 Mcg Tablet: Order Awaiting Action) 1 each N/A QS [facility] Stop: 09/04/25 00:00 Last Admin: 08/05/25 07:38 Dose: Not Given Documented By: Admin: 08/04/25 23:38 Dose: Not Given Documented By: ATS Medical Decision Making Differential Diagnosis In the evaluation and treatment of this patient the following differential diagnoses were considered: Cauda equina syndrome, discitis, HNP, sciatica, epidural abscess, psoas abscess, musculoskeletal strain, lumbar fracture, lumbar dislocation, lumbar subluxation, spondylolisthesis, spondylosis, or compression fracture. Medical Records Attestation: I reviewed the patient's medical records. Home Medications was personally reviewed by me Laboratory Data Attestation: I reviewed the patient's lab results. 08/05/25 05:31 08/05/25 05:31 Lab Results 08/04/25 08/04/25 Range/Units 10:45 12:20 WBC 9.44 (4.8-10.8) K/ul RBC 4.40 (4.20-5.40) M/uL Hgb 13.5 (12.0-16.0) g/dl Hct 40.3 (37.0-47.0) % MCV 91.6 (80.0-100.0) fL MCH 30.7 (25.0-34.0) pg MCHC 33.5 (32.0-36.0) g/dL RDW Std Deviation 41.6 (36.4-46.3) fL RDW Coeff of Maureen 12.5 (11.5-14.5) % Plt Count 323 (130-400) K/uL MPV 10.0 (9.4-12.4) fL Immature Gran % (Auto) 1.4 % Neut % (Auto) 73.0 % Lymph % (Auto) 19.8 % Hickman % (Auto) 5.4 % Eos % (Auto) 0.2 % Baso % (Auto) 0.2 % Neut # (Auto) 6.89 H (1.40-6.50) K/uL Lymph # (Auto) 1.87 (1.20-3.40) K/uL Hickman # (Auto) 0.51 (0.11-0.59) K/uL Eos # (Auto) 0.02 (0.00-0.50) K/uL Baso # (Auto) 0.02 (0.00-0.20) K/uL Immature Gran # (Auto) 0.13 (0.01-0.20) K/uL Sodium 139 (136-145) mmol/L Potassium 3.8 (3.5-5.1) mmol/L Chloride 99 (98-107) mmol/L Carbon Dioxide 32 (21-32) mmol/L Anion Gap 8 (3-11) BUN 18 (6-23) mg/dl Creatinine 0.71 (0.6-1.2) mg/dl Est Cr Clr Drug Dosing Not Reportable eGFR 86.98 BUN/Creatinine Ratio 25.4 H (10-20) Glucose 130 H (70-99(Fasting)) mg/dl Calcium 10.5 H (8.6-10.3) mg/dl Total Bilirubin 0.5 (0.2-1.0) mg/dl AST 19 (13-39) U/L ALT 13 (7-52) U/L Alkaline Phosphatase 81 (34-104) U/L Total Protein 7.2 (6.0-8.3) gm/dl Albumin 4.6 (3.4-5.0) gm/dl Globulin 2.6 (2.5-4.0) gm/dl Albumin/Globulin Ratio 1.8 (0.9-2) Urine Color Yellow Urine Appearance Cloudy A (Clear) Urine pH 8.5 H (4.5-7.5) Ur Specific [place] 1.017 (1.000-1.030) Urine Protein Negative (Negative) Urine Glucose (UA) Negative (Negative) Urine Ketones Negative (Negative) Urine Blood Negative (Negative) Urine Nitrite Negative (Negative) Urine Bilirubin Negative (Negative) Urine Urobilinogen Negative (Negative) Ur Leukocyte Esterase 1+ H (Negative) Urine WBC (Auto) 0-5 (0-5) /hpf Urine RBC (Auto) 0-2 (0-2) /hpf U Hyaline Cast (Auto) 0-2 (0-2) /lpf U Epithel Cells (Auto) 0-2 (0-2) /hpf Urine Bacteria (Auto) None Seen (None Seen) Urine Comment MDM Narrative Patient is a 80-year-old female who presents to the emergency department with complaints of continued back pain. Patient was seen in the emergency department 2 weeks ago after she had a fall out of bed and had traumatic injury to her back. Patient had x-rays completed at that time and was negative for any fracture or subluxation. Patient returned to the emergency department 2 days ago with complaints of continued pain uncontrolled at home with [id number] pain medication. Patient was advised to return to the emergency department should she develop any new concerning or worsening symptoms such as intractable pain, numbness or loss of bladder or bowel. Patient reports that this morning she started having loss of her bowel control and bladder control. Patient reports that she is unable to control it at this time. Patient also notes significant pain that is uncontrolled with the Percocet that she was prescribed 2 days ago. Patient presents to the emergency department writhing in pain. Patient was evaluated by myself and findings were noted in the physical exam above. Patient was ordered IV placement, lab work, urinalysis, and MRI of the lumbar and thoracic spines. 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 I reached out to the mobile battery technician who advised that they would reach out to [facility] and find out what kind of hardware or coil is present in her brain. Patient's lab work resulted unremarkable. Patient has normal white blood cell count of 9.44. Had no significant evidence of anemia with a hemoglobin of 13.5 and hematocrit of 40.3. Patient has no significant electrolyte imbalance noted. Patient's urinalysis was not indicative of infection. Patient was ordered and initial dose of IV Dilaudid, as that has been controlling her pain at her last visit well. Patient reports some minimal pain relief but it did return upon reevaluation. Patient was then ordered a subsequent dose of Dilaudid as well as IV Tylenol. The patient continues to be in some pain but does report some relief with the medication here in the emergency department. I reach back out to the mobile battery technician who advised that they are still waiting to hear back from [facility] and are unsure if MRI imaging can be completed yet. While I am unsure if the MRI imaging can be completed I do not have report back from [place] at this time, the patient continues to be in a significant amount of pain, does not have great bladder or bowel control and discharged home would be inappropriate for this patient as she cannot control her discomfort and symptoms at home. [facility] for further evaluation and management of this patient. Impression Low back pain, Ambulatory dysfunction Discharge Plan Visit Data Chief Complaint: Back Injury/Pain Stated Complaint: BACK PAIN, UNABLE TO VOID ED Provider: Trung Jennings ED Midlevel Provider: Rhianna Callahan Discharge Problem: Low back pain, Ambulatory dysfunction Patient Disposition: Admitted As Inpatient Condition: Fair Discharge Instructions Interventions: ED Discharge Assessment Last Done: 08/04/25 16:51
[2025-08-04] MEDS: HYDROmorphone INJ 0.5 MG/0.5 ML SYR IV STA ×2 (10:53→13:30)
[2025-08-04 11:08] LABS: Hematocrit (blood only) 40.3 % (37.0-47.0); Hemoglobin 13.5 g/dl (12.0-16.0); Immature Granulocytes # (auto) 0.13 K/uL (0.01-0.20); Immature Granulocytes % (auto) 1.4 %; Mean Corpuscular Hemoglobin 30.7 pg (25.0-34.0); Mean Corpuscular Volume 91.6 fL (80.0-100.0); Platelet Count 323 K/uL (130-400); RDW Standard Deviation 41.6 fL (36.4-46.3); Red Blood Count 4.40 M/uL (4.20-5.40); White Blood Count 9.44 K/ul (4.8-10.8)
[2025-08-04 11:26] LABS: Alanine Aminotransferase 13 U/L (7-52); Albumin Globulin Ratio 1.8 (0.9-2); Albumin Level 4.6 gm/dl (3.4-5.0); Alkaline Phosphatase 81 U/L (34-104); Anion Gap 8 (3-11); Bilirubin,Total 0.5 mg/dl (0.2-1.0); Blood Urea Nitrogen 18 mg/dl (6-23); Calcium 10.5 mg/dl (8.6-10.3); Carbon Dioxide 32 mmol/L (21-32); Chloride 99 mmol/L (98-107); Globulin 2.6 gm/dl (2.5-4.0); Glucose 130 mg/dl (70-99(Fasting)); Potassium 3.8 mmol/L (3.5-5.1); Sodium 139 mmol/L (136-145); Total Protein 7.2 gm/dl (6.0-8.3)
[2025-08-04 13:13] LABS: Appearance Urine Cloudy (Clear); Bacteria Urine Automated None Seen (None Seen); Cast Urine Automated 0-2 /lpf (0-2); Epithelial Cell Urine Auto 0-2 /hpf (0-2); Glucose Urine UA Negative (Negative); RBC Urine Automated 0-2 /hpf (0-2); WBC Urine Automated 0-5 /hpf (0-5)
[2025-08-04] MEDS: ACETAMINOPHEN 1,000 MG/100 ML VIAL IV STA (13:30)
[2025-08-04] MEDS ORDERED: ALBUTEROL HFA 8 GM INHALER INH PRN (15:10)
[2025-08-04] MEDS ORDERED: ONDANSETRON INJ 2 MG/ML 2 ML VIAL IV PRN (15:13)
[2025-08-04] MEDS ORDERED: PHARMACY GLYCEMIC MGMT CONSULT PRN (15:15)
--- NOTE | 2025-08-04 16:13 | History & Physical Report ---
Date of Service August 04, 2025 Assessment & Plan (1) Low back pain: Plan: -MRI spine pending -dilaudid -perocet -solu-medrol 125mg IV given -PT/OT (2) Hypertension: Plan: -losartan (3) GERD (gastroesophageal reflux disease): Plan: -protonix (4) Diabetes type 2, controlled: Plan: -pharm consult for glycemic management (5) Secondary adrenal insufficiency: Plan: -prednisone (6) Hypothyroidism: Plan: -levothyroxine History of Present Illness Chief Complaint: Intractable back pain Primary Care Provider: Cristobal Gamino MD Pt is a 80 y/o female with pmh of afib on eliquis, DM, adrenal insufficiency, asthma, HTN, who presents with tractable back pain after sustaining a fall a few days ago. Pt states she fell from a standing position on to her sided about 3 days ago. Since then she has had progressively worsening back pain. She presented to the ER on 08/02 with symptoms of back pain, had CT spine, which showed no acute pathology and was diagnosed with musculoskeletal pain and sent home on percocet. Today when she woke up her back pain was unbearable and she had loss of bladder and bowel continence. She denies any motor or sensor loss in her legs. In the ER she continued to have intractable pain despite receiving Dilaudid. An MRI of the T/L spine was ordered, pending clearance from [facility] as patient has possible brain aneurysmal clip. Pt is being admitted for further pain control and evaluation by ortho-spine. Allergies Allergy/AdvReac Type Severity Reaction Status Date / Time Sulfa (Sulfonamide Allergy Mild RASH Verified 08/03/25 00:10 Antibiotics) dobutamine AdvReac Severe ST Verified 08/03/25 00:10 ELEVATION, CHEST PAIN Home Medications Medication Instructions Recorded Confirmed Type cyanocobalamin (vitamin B-12) 1,000 mcg PO HS 10/27/19 08/04/25 History 1,000 mcg capsule calcium citrate 200 mg PO HS 08/14/22 08/04/25 History acetaminophen 325 mg tablet 975 mg PO TID PRN Pain/Fever 10/13/24 08/04/25 History (Tylenol) ezetimibe 10 mg tablet 10 mg PO QAM #90 tabs 12/26/24 10/14/25 Rx rosuvastatin 5 mg tablet 5 mg PO WK #14 tabs 10/24/24 08/04/25 Rx losartan 100 mg tablet 100 mg PO DAILY #90 tabs 10/28/24 08/04/25 Rx OneTouch Delica Plus Lancet 33 #100 ea 02/16/25 07/28/25 Rx gauge (lancets) pantoprazole 40 mg tablet,delayed 40 mg PO DAILY #90 tabs 03/31/25 08/04/25 Rx release blood sugar diagnostic #100 ea 04/10/25 07/28/25 Rx metoprolol succinate 100 mg 100 mg PO DAILY #90 tabs 04/22/25 08/04/25 Rx tablet,extended release 24 hr cholecalciferol (vitamin D3) 125 125 mcg PO DAILY #30 caps 04/28/25 08/04/25 Rx mcg (5,000 unit) capsule cholecalciferol (vitamin D3) 25 25 mcg PO DAILY #30 caps 04/28/25 08/04/25 Rx mcg (1,000 unit) capsule pen needle, diabetic 31 gauge x #100 ea 05/07/25 07/28/25 Rx 3/16" teriparatide 20 mcg/dose (560 20 mcg (0.08 mL) subcut DAILY 05/07/25 08/04/25 Rx mcg/2.24 mL) subcutaneous pen #6.72 mL injector (Forteo) Synthroid 100 mcg tablet 100 mcg PO PM #90 tabs 05/14/25 08/04/25 Rx (levothyroxine) apixaban 5 mg tablet (Eliquis) 5 mg PO BID #180 tabs 06/01/25 08/04/25 Rx magnesium oxide 400 mg (241.3 mg 400 mg PO DAILY #90 tabs 06/12/25 08/04/25 Rx magnesium) tablet (MagOx) methocarbamol 500 mg tablet 500 mg PO Q8H PRN muscle spasm #30 07/28/25 08/04/25 Rx tabs oxycodone 5 mg tablet 5 mg PO Q8H PRN pain #20 tabs 07/28/25 08/04/25 Rx albuterol sulfate 90 mcg/actuation 1 inh inhalation QID PRN Shortness 08/03/25 08/04/25 History aerosol inhaler Of Breath Or Wheezing hydrocortisone 5 mg tablet 5 mg PO QPM 08/03/25 08/04/25 History hydrocortisone 5 mg tablet 10 mg PO QAM 08/03/25 08/04/25 History mometasone 0.1 % topical cream 1 applic topical DAILY PRN Skin 08/03/25 08/04/25 History Irritation oxycodone-acetaminophen 5 mg-325 1 tab PO Q4H PRN pain #14 tabs 08/03/25 08/04/25 Rx mg tablet (Percocet) Past Med/Surg History Problem List Low back pain (Acute) Back pain (Acute) Secondary adrenal insufficiency Diabetes type 2, controlled Contact dermatitis Allergic rhinitis Ambulatory dysfunction (Acute) Osteoarthritis Sinusitis Asthmatic bronchitis with acute exacerbation SSS (sick sinus syndrome) Chronic anticoagulation Dyslipidemia Hypertension 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 GERD (gastroesophageal reflux disease) Osteoporosis Cardiac pacemaker Bradycardia, severe sinus (Acute) Abnormal mammogram History of acromegaly Medical History Fracture, sacrum/coccyx (~02/28/24) from a fall Closed fracture of a rib (~10/09/24) Fractured lateral aspect Right 7th rib from a fall Atrial fibrillation History of hip fracture (09/14/19) Left hip Chronic diarrhea Vitamin D deficiency History of CVA (cerebrovascular accident) Due to embolism Schatzki's ring of distal esophagus Surgical History History of colonoscopy History of esophagogastroduodenoscopy (EGD) H/O craniotomy H/O dilation and curettage H/O total hip arthroplasty right and left History of tonsillectomy Hx of tubal ligation Hx of cataract surgery right and left History of hypophysectomy Family History Father Colon cancer Diabetes Myocardial infarction Colorectal cancer Stroke Mother ASCVD (arteriosclerotic cardiovascular disease) Lymphoma Father Colorectal cancer Grandfather (Paternal) Diabetes Daughter Cervical cancer Grandmother (Maternal) Cervical cancer Other Family history non-contributory No family history of adverse response to anesthesia Denies family history of Crohn's disease Social History (Reviewed 08/04/25 @ 14:30 by RANI Rivers Smoking Status: Never smoker Second Hand Exposure: No; Do You Dip or Chew Tobacco: No; Hx Alcohol Use: Yes Alcohol type: wine Hx Substance Use: No Preferred Language: Colombian Communication Ability: Effective Structural Drafter Required: No Beliefs That Will Affect Care: None marital status: Current Living Situation: Spouse current occupational status: retired Feels Safe at Home: Yes Assistive Devices: Cane, Stair Lift, Walker and Wheelchair Review of Systems Review of Systems: CONST: Negative for fever, body aches and chills. HENT: Negative for neck pain/stiffness, headache, congestion, sore throat, swelling. EYES: Negative for discharge/pain or vision changes. RESP: Negative for cough/hemoptysis and shortness of breath. CV: Negative chest pain, difficulty breathing, palpitations. ABD: Negative pain, nausea, vomiting. : Negative increase frequency, dysuria, blood in urine or stool. MUSC: Negative for muscle aches, edema. SKIN: Negative rash, lesions/sores. NEURO: Negative headache, dizziness, weakness. Physical Exam Physical Exam: GENERAL APPEARANCE NAD, activity normal for age, well developed/ well nourished, no cyanosis, pallor, or diaphoresis. EYES lids/conjunctiva normal. EARS/NOSE/THROAT Mucous membranes moist, nares normal, lips/teeth normal uvula midline without oral pharyngeal erythema, exudate or swelling TMs normal bilaterally. No lymphangitis/lymphedema. HEAD/NECK normocephalic atraumatic, no facial trauma, neck is supple. RESPIRATORY respiratory effort normal, speaks in full sentences, no tripod position, no accessory muscle use. Lungs clear to auscultation without rhonchi, wheezes, rales CARDIAC Regular rate and rhythm, no edema. ABDOMINAL Soft, ND/NT. No evidence of fluid wave. No pulsatile masses on exam, rebound tenderness, Maldonado sign or pain over Mcburney's point. MUSCLES/EXTREMITIES No abnormal range of motion, no swelling. SKIN Warm, pink and dry. No rashes, dermatoses, petechiae or lesions. NEUROLOGICAL Speech is clear and appropriate. Normal level of consciousness. Gait and coordination are normal. 5/5 strength in all extremities. PSYCH Normal mood and affect. Judgement/competence is appropriate Results & Data Results & Data Vital Signs (Past 12 Hours) Vital Signs Temp Pulse Pulse Resp BP BP Pulse Ox 08/04/25 15:00 61 16 139/82 98 08/04/25 13:30 56 L 17 179/97 H 97 08/04/25 10:19 36.6 C 68 18 171/83 H 95 O2 Del Method O2 Flow Rate 08/04/25 15:00 Nasal Cannula 2 08/04/25 13:30 Nasal Cannula 2 08/04/25 10:19 Room Air PG Care Time/CCT Total # of Minutes Spent Total Time Spent with Patient: Total time spent is greater than 50% in coordination of care (as documented) at patient's floor/unit and/or counseling patient: Coding Level of Care Code 74661 INT INP/OBS CARE 2/55MIN Diagnoses Low back pain M54.50 Primary hypertension I10 Hypertension type: primary hypertension GERD (gastroesophageal reflux disease) K21.9 Diabetes type 2, controlled E11.9 Secondary adrenal insufficiency E27.49 Hypothyroidism E03.9 (2) Hypertension Hypertension type: primary hypertension Qualified Code(s): I10 - Essential (primary) hypertension
[2025-08-04] MEDS ORDERED: GLUCOSE 10 TAB/TUBE PO PRN (16:15)
[2025-08-04] MEDS ORDERED: DEXTROSE 50% 50 ML SYRINGE IV PRN (16:15)
[2025-08-04] MEDS ORDERED: GLUCOSE 40% GEL 15 GM TUBE PO PRN (16:15)
[2025-08-04] MEDS ORDERED: CARBOHYDRATES FOR HYPOGLYCEMIA PO PRN (16:15)
[2025-08-04] MEDS ORDERED: GLUCAGON FOR INJ 1 MG VIAL SQ PRN (16:15)
--- NOTE | 2025-08-04 19:11 | Pharmacy Report ---
Pharmacy Glycemic Short Note 2 - Date of Service August 04, 2025 - Glycemic Short BSG Results (Last 24 hours): 08/04/25 08/04/25 10:45 16:37 Glucose 130 H POC Glucose 115 H OUTPATIENT ANTIDIABETIC REGIMEN: * Diet/Lifestyle ASSESSMENT: * Brittany is a 80 yo F with PMH of A.fib, DM, adrenal insufficiency, asthma, and HTN. She presents with intractable back pain after sustaining a fall a few days ago. She has been admitted for pain control and Ortho eval. She received a one time dose of methylprednisolone IV in ED. * Updated A1c pending. Based on A1c of 6.5% in March and outpatient management consisting of lifestyle modifications, I suspect patient to require little insulin overall. She may experience short-term hyperglycemia d/t one time dose of methylprednisolone. PLAN FOR INPATIENT GLYCEMIC CONTROL: * Basal insulin * Hold * Bolus insulin * NovoLog per scale ACHS or Q6hrs while NPO * Goal Range: Low 120 mg/dL - High 160 mg/dL * Correction Factor: 30 mg/dL/unit * Nutritional / Prandial insulin per carb ratio of 1 unit per 10 grams CHO consumed
[2025-08-04] MEDS: HYDROmorphone INJ 1 MG/ML SYRINGE IV PRN (19:32)
[2025-08-04] MEDS ORDERED: ACETAMINOPHEN 325 MG TAB PO PRN (20:00)
[2025-08-04] MEDS: APIXABAN 5 MG TABLET PO SCH (20:12)
[2025-08-04] MEDS: CYANOCOBALAMIN (B-12) 500 MCG TABLET PO SCH (20:12)
[2025-08-04] MEDS: CALCIUM CITRATE 950 MG TAB PO SCH (20:13)
[2025-08-04] MEDS: INSULIN ASPART PER UNIT CHARGE SC SCH (22:10)
[2025-08-05] MEDS: METHOCARBAMOL 500 MG TABLET PO PRN (01:32)
[2025-08-05 06:34] LABS: Hematocrit (blood only) 36.4 % (37.0-47.0); Hemoglobin 12.3 g/dl (12.0-16.0); Mean Corpuscular Hemoglobin 30.8 pg (25.0-34.0); Mean Corpuscular Volume 91.0 fL (80.0-100.0); Platelet Count 291 K/uL (130-400); RDW Standard Deviation 40.6 fL (36.4-46.3); Red Blood Count 4.00 M/uL (4.20-5.40); White Blood Count 7.54 K/ul (4.8-10.8)
[2025-08-05 07:02] LABS: Anion Gap 8.0 (3-11); Blood Urea Nitrogen 19.0 mg/dl (6-23); Calcium 9.6 mg/dl (8.6-10.3); Carbon Dioxide 34.0 mmol/L (21-32); Chloride 97.0 mmol/L (98-107); Creatinine Clr Calc Pharmacy 84.7 ml/min; Glucose 137.0 mg/dl (70-99(Fasting)); Potassium 4.4 mmol/L (3.5-5.1); Sodium 139.0 mmol/L (136-145)
[2025-08-05 08:18] LABS: Hemoglobin A1C 6.5 % (4.5-5.6)
[2025-08-05] MEDS: EZETIMIBE 10 MG TAB PO SCH (09:46)
[2025-08-05] MEDS: CHOLECALCIFEROL 125 MCG (5,000 UNITS) TAB PO SCH (09:46)
[2025-08-05] MEDS: CHOLECALCIFEROL 25 MCG (1000 UNITS) TAB PO SCH (09:47)
[2025-08-05] MEDS: LOSARTAN POTASSIUM 50 MG TAB PO SCH (09:47)
[2025-08-05] MEDS: METOPROLOL SUCC 50MG EXT REL TAB PO SCH (09:47)
[2025-08-05] MEDS: HYDROCORTISONE 10 MG TAB PO SCH (09:47)
--- NOTE | 2025-08-05 10:29 | Hospitalist Progress Note ---
Date of Service August 05, 2025 Assessment & Plan (1) Low back pain: Plan: -MRI spine pending follow with [facility] as patient has brain aneurysm clip -dilaudid -perocet -solu-medrol 125mg IV given -spine surgery consulted -PT/OT (2) Hypertension: Plan: -losartan (3) GERD (gastroesophageal reflux disease): Plan: -protonix (4) Diabetes type 2, controlled: Plan: -pharm consult for glycemic management (5) Secondary adrenal insufficiency: Plan: -prednisone (6) Hypothyroidism: Plan: -levothyroxine Admission and Anticipated Discharge Date Admission Date: August 04, 2025 Subjective Pt still complaining of back pain, that only improves after Dilaudid. Pt has mobility while on Dilaudid, but once it wears off she is unable to tolerate the pain and cannot get out of bed. Review of Systems Review of Systems: CONST: Negative for fever, body aches and chills. HENT: Negative for neck pain/stiffness, headache, congestion, sore throat, swelling. EYES: Negative for discharge/pain or vision changes. RESP: Negative for cough/hemoptysis and shortness of breath. CV: Negative chest pain, difficulty breathing, palpitations. ABD: Negative pain, nausea, vomiting. : Negative increase frequency, dysuria, blood in urine or stool. MUSC: Negative for muscle aches, edema. SKIN: Negative rash, lesions/sores. NEURO: Negative headache, dizziness, weakness. Physical Exam Physical Exam: GENERAL APPEARANCE NAD, activity normal for age, well developed/ well nourished, no cyanosis, pallor, or diaphoresis. EYES lids/conjunctiva normal. EARS/NOSE/THROAT Mucous membranes moist, nares normal, lips/teeth normal uvula midline without oral pharyngeal erythema, exudate or swelling TMs normal bilaterally. No lymphangitis/lymphedema. HEAD/NECK normocephalic atraumatic, no facial trauma, neck is supple. RESPIRATORY respiratory effort normal, speaks in full sentences, no tripod position, no accessory muscle use. Lungs clear to auscultation without rhonchi, wheezes, rales CARDIAC Regular rate and rhythm, no edema. ABDOMINAL Soft, ND/NT. No evidence of fluid wave. No pulsatile masses on exam, rebound tenderness, Maldonado sign or pain over Mcburney's point. MUSCLES/EXTREMITIES No abnormal range of motion, no swelling. SKIN Warm, pink and dry. No rashes, dermatoses, petechiae or lesions. NEUROLOGICAL Speech is clear and appropriate. Normal level of consciousness. Gait and coordination are normal. 5/5 strength in all extremities. PSYCH Normal mood and affect. Judgement/competence is appropriate Results & Data Results & Data Vital Signs (Past 12 Hours) Vital Signs Temp Pulse Resp BP Pulse Ox O2 Del Method 08/05/25 07:01 36.6 C 73 16 173/99 H 98 Room Air 08/05/25 00:15 36.5 C 68 18 174/92 H 92 Room Air PG Care Time/CCT Total # of Minutes Spent Total Time Spent with Patient: Total time spent is greater than 50% in coordination of care (as documented) at patient's floor/unit and/or counseling patient: Coding Level of Care Code 21836 SUB INP/OBS CARE 2/35MIN Diagnoses Low back pain M54.50 Primary hypertension I10 Hypertension type: primary hypertension GERD (gastroesophageal reflux disease) K21.9 Diabetes type 2, controlled E11.9 Secondary adrenal insufficiency E27.49 Hypothyroidism E03.9 (2) Hypertension Hypertension type: primary hypertension Qualified Code(s): I10 - Essential (primary) hypertension
--- NOTE | 2025-08-05 11:24 | Orthopedic Consultation ---
Date of Service August 05, 2025 Assessment & Plan (1) Low back pain: * Case/imaging reviewed and discussed with Dr De Anda * Possible compression/endplate fx at L1 which would explain her localized pain * MRI pending for further evaluation * Recommend closed management including pain control, bracing * TLSO ordered * Consider NSAIDs, muscle relaxers, narcotics if needed * Weight bearing status: WBAT * Daily treatment: Physical Therapy/ Occupational Therapy per protocol * Pain control * Disposition: TBD * Remainder care per primary team * Will need office f/u for repeat XR and progress check 4-6 weeks1 * * Patient seen and examined, had fall on July 22, 2 weeks ago and this appears to have resulted in L1 compression fracture. Patient more comfortable in brace, will mobilize with physical therapy with follow-up radiographs in office. History of Present Illness Reason for Consultation: low back pain Requesting Physician: . Attending Physician: Ayan Graff MD .Patient is a 80 y/o female with low back pain. PMH including afib on eliquis, DM, adrenal insufficiency, asthma, HTN, CVA. Presents to hospital with persistent low back pain after a fall. Patient reports falling approximately 2 weeks ago, was seen in ED at that time and treated for musculoskeletal pain, presents back to ED due to continued symptoms. Denies tingling, numbness, weakness of b/l lower extremity. Did have some urinary incontinence secondary to pain. Current workup including XR and CT lumbar spine demonstrating possible L1 compression fracture. MRI pending, working on clearance secondary to implanted devices. Admitted to hospital medicine team. Orthopedics consulted for management recommendations. At time of exam patient lying comfortably in bed, no acute distress. Reports mild-moderate low back pain at rest that increases with movement. Denies tingling/numbness of b/l lower extremities. Allergies Allergy/AdvReac Type Severity Reaction Status Date / Time Sulfa (Sulfonamide Allergy Mild RASH Verified 08/03/25 00:10 Antibiotics) dobutamine AdvReac Severe ST Verified 08/03/25 00:10 ELEVATION, CHEST PAIN Home Medications Medication Instructions Recorded Confirmed Type cyanocobalamin (vitamin B-12) 1,000 mcg PO HS 10/27/19 08/04/25 History 1,000 mcg capsule calcium citrate 200 mg PO HS 08/14/22 08/04/25 History acetaminophen 325 mg tablet 975 mg PO TID PRN Pain/Fever 10/13/24 08/04/25 History (Tylenol) ezetimibe 10 mg tablet 10 mg PO QAM #90 tabs 10/16/24 08/04/25 Rx rosuvastatin 5 mg tablet 5 mg PO WK #14 tabs 10/24/24 08/04/25 Rx losartan 100 mg tablet 100 mg PO DAILY #90 tabs 10/28/24 08/04/25 Rx OneTouch Delica Plus Lancet 33 #100 ea 02/16/25 07/28/25 Rx gauge (lancets) pantoprazole 40 mg tablet,delayed 40 mg PO DAILY #90 tabs 03/31/25 08/04/25 Rx release blood sugar diagnostic #100 ea 04/10/25 07/28/25 Rx metoprolol succinate 100 mg 100 mg PO DAILY #90 tabs 04/22/25 08/04/25 Rx tablet,extended release 24 hr cholecalciferol (vitamin D3) 125 125 mcg PO DAILY #30 caps 04/28/25 08/04/25 Rx mcg (5,000 unit) capsule cholecalciferol (vitamin D3) 25 25 mcg PO DAILY #30 caps 04/28/25 08/04/25 Rx mcg (1,000 unit) capsule pen needle, diabetic 31 gauge x #100 ea 05/07/25 07/28/25 Rx 3/16" teriparatide 20 mcg/dose (560 20 mcg (0.08 mL) subcut DAILY 05/07/25 08/04/25 Rx mcg/2.24 mL) subcutaneous pen #6.72 mL injector (Forteo) Synthroid 100 mcg tablet 100 mcg PO PM #90 tabs 05/14/25 08/04/25 Rx (levothyroxine) apixaban 5 mg tablet (Eliquis) 5 mg PO BID #180 tabs 06/01/25 08/04/25 Rx magnesium oxide 400 mg (241.3 mg 400 mg PO DAILY #90 tabs 06/12/25 08/04/25 Rx magnesium) tablet (MagOx) methocarbamol 500 mg tablet 500 mg PO Q8H PRN muscle spasm #30 07/28/25 08/04/25 Rx tabs oxycodone 5 mg tablet 5 mg PO Q8H PRN pain #20 tabs 07/28/25 08/04/25 Rx albuterol sulfate 90 mcg/actuation 1 inh inhalation QID PRN Shortness 08/03/25 08/04/25 History aerosol inhaler Of Breath Or Wheezing hydrocortisone 5 mg tablet 5 mg PO QPM 08/03/25 08/04/25 History hydrocortisone 5 mg tablet 10 mg PO QAM 08/03/25 08/04/25 History mometasone 0.1 % topical cream 1 applic topical DAILY PRN Skin 08/03/25 08/04/25 History Irritation oxycodone-acetaminophen 5 mg-325 1 tab PO Q4H PRN pain #14 tabs 08/03/25 08/04/25 Rx mg tablet (Percocet) Past Med/Surg History Problem List (Updated 08/06/25 @ 00:01 by Gurdeep Pickering) Low back pain (Acute) Back pain (Acute) Secondary adrenal insufficiency Diabetes type 2, controlled Contact dermatitis Allergic rhinitis Ambulatory dysfunction (Acute) Osteoarthritis Sinusitis Asthmatic bronchitis with acute exacerbation SSS (sick sinus syndrome) Chronic anticoagulation Dyslipidemia Hypertension 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 GERD (gastroesophageal reflux disease) Osteoporosis Cardiac pacemaker Bradycardia, severe sinus (Acute) Abnormal mammogram History of acromegaly Medical History Fracture, sacrum/coccyx (~02/28/24) from a fall Closed fracture of a rib (~10/09/24) Fractured lateral aspect Right 7th rib from a fall Atrial fibrillation History of hip fracture (09/14/19) Left hip Chronic diarrhea Vitamin D deficiency History of CVA (cerebrovascular accident) Due to embolism Schatzki's ring of distal esophagus Surgical History History of colonoscopy History of esophagogastroduodenoscopy (EGD) H/O craniotomy H/O dilation and curettage H/O total hip arthroplasty right and left History of tonsillectomy Hx of tubal ligation Hx of cataract surgery right and left History of hypophysectomy Family History Father Colon cancer Diabetes Myocardial infarction Colorectal cancer Stroke Mother ASCVD (arteriosclerotic cardiovascular disease) Lymphoma Father Colorectal cancer Grandfather (Paternal) Diabetes Daughter Cervical cancer Grandmother (Maternal) Cervical cancer Other Family history non-contributory No family history of adverse response to anesthesia Denies family history of Crohn's disease Social History Smoking Status: Never smoker Second Hand Exposure: No; Do You Dip or Chew Tobacco: No; Hx Alcohol Use: No Hx Substance Use: No Preferred Language: Kyrgyz Communication Ability: Effective Tank Farm Attendant Required: No Beliefs That Will Affect Care: None marital status: Current Living Situation: Spouse current occupational status: retired Feels Safe at Home: Yes Assistive Devices: Cane, Stair Lift, Walker, Wheelchair and Other Review of Systems All systems reviewed & are unremarkable except as noted in HPI & below. Physical Exam . * General: Alert and oriented, no acute distress * Constitutional: well-developed, well-nourished. * Respiratory: Normal respiratory effort, no distress * Gastrointestinal: No tenderness to palpation, no rigidity or guarding. * Skin: No rash or lesion. * Neurologic: Grossly normal * Musculoskeletal: lumbar region with no obvious deformity or overlying skin changes. No deformity noted to b/l LE. Mild midline TTP and surrounding spasm lumbar paraspinals. Pain with lumbar flexion and rotation. AROM hip flexion, knee extension, ankle dorsi/plantarflexion 5/5 bilaterally. Sensation intact plantar/dorsal foot. Brisk capillary refill. Results & Data Results & Data Laboratory Results . Diagnostic Findings . PG Care Time/CCT Total # of Minutes Spent Total Time Spent with Patient: Total time spent is greater than 50% in coordination of care (as documented) at patient's floor/unit and/or counseling patient: [place] [address] IN/OBS CONSULT LVL 4,60M Patient Type New Medical Decision Making Moderate Complexity Diagnoses Low back pain M54.50
--- NOTE | 2025-08-05 12:38 | Pharmacy Report ---
Pharmacy Glycemic Short Note 2 - Date of Service August 05, 2025 - Glycemic Short BSG Results (Last 24 hours): 08/04/25 08/04/25 08/05/25 16:37 20:30 05:31 Glucose 137 H POC Glucose 115 H 159 H 08/05/25 08/05/25 07:24 11:29 Glucose POC Glucose 137 H 108 H OUTPATIENT ANTIDIABETIC REGIMEN: * Diet/Lifestyle ASSESSMENT: 08/05: * Brittany only required 1 unit of bolus insulin yesterday. * Fasting BSG was 137mg/dL this morning and lunch BSG was 108mg/dL. No additional steroids have been ordered (although she is on chronic hydrocortisone) * No Basal insulin is needed at this time and loosened the correction factor and carb ratio of bolus insulin to avoid hypoglycemia since no further steroids have been ordered. 08/04: * Brittany is a 80 yo F with PMH of A.fib, DM, adrenal insufficiency, asthma, and HTN. She presents with intractable back pain after sustaining a fall a few days ago. She has been admitted for pain control and Ortho eval. She received a one time dose of methylprednisolone IV in ED. * Updated A1c pending. Based on A1c of 6.5% in March and outpatient management consisting of lifestyle modifications, I suspect patient to require little insulin overall. She may experience short-term hyperglycemia d/t one time dose of methylprednisolone. PLAN FOR INPATIENT GLYCEMIC CONTROL: * Basal insulin * Hold * Bolus insulin * NovoLog per scale ACHS or Q6hrs while NPO * Goal Range: Low 110 mg/dL - High 140 mg/dL * Correction Factor: 45 mg/dL/unit * Nutritional / Prandial insulin per carb ratio of 1 unit per 20 grams CHO consumed
[2025-08-05] MEDS: MAGNESIUM HYDROXIDE SUSP 30 ML UDC PO PRN (19:30)
[2025-08-05] MEDS: SYNTHROID 100 MCG PO SCH (20:49)
--- NOTE | 2025-08-06 08:48 | Orthopedic Progress Note ---
Date of Service August 06, 2025 Assessment & Plan (1) Low back pain: * Case/imaging reviewed and discussed with Dr De Anda * Possible compression/endplate fx at L1 which would explain her localized pain * MRI pending for further evaluation, will follow results peripherally * Recommend closed management including pain control, bracing * TLSO fitted, patient much more comfortable * Consider NSAIDs, muscle relaxers, narcotics if needed * Weight bearing status: WBAT * Daily treatment: Physical Therapy/ Occupational Therapy per protocol * Pain control * Disposition: TBD * Remainder care per primary team * Will need office f/u for repeat XR and progress check 4-6 weeks * * Patient improved with brace on, mobilization with physical therapy and follow- up in office. Subjective . Active Problems: S/p L1 compression fx 80 y/o female with low back pain found to have L1 compression fx. Fitted for brace yesterday, significant improvement in pain and mobility. Sitting upright in chair at time of exam. Doing well overall, pain managed and improved function. Denies fever/chills, chest pain/SOB, nausea/vomiting. Otherwise no complaints. Review of Systems All systems reviewed & are unremarkable except as noted in HPI & below. Physical Exam * Musculoskeletal: lumbar region with no obvious deformity or overlying skin changes. No deformity noted to b/l LE. Mild midline TTP and surrounding spasm lumbar paraspinals. Pain with lumbar flexion and rotation. AROM hip flexion, knee extension, ankle dorsi/plantarflexion 5/5 bilaterally. Sensation intact plantar/dorsal foot. Brisk capillary refill. Results & Data Results & Data Laboratory Results . Diagnostic Findings . PG Care Time/CCT Total # of Minutes Spent Total Time Spent with Patient: Total time spent is greater than 50% in coordination of care (as documented) at patient's floor/unit and/or counseling patient: Coding Level of Care Code 31791 SUB INP/OBS CARE 11/15MIN Diagnoses Low back pain M54.50
--- NOTE | 2025-08-06 09:07 | Hospitalist Progress Note ---
Date of Service August 06, 2025 Assessment & Plan (1) Low back pain: Plan: -dilaudid -perocet -solu-medrol 125mg IV given -spine surgery consult appreciated -possible L1 endplate compression fx -PT/OT -TSLO (2) Hypertension: Plan: -losartan (3) GERD (gastroesophageal reflux disease): Plan: -protonix (4) Diabetes type 2, controlled: Plan: -pharm consult for glycemic management (5) Secondary adrenal insufficiency: Plan: -prednisone (6) Hypothyroidism: Plan: -levothyroxine Admission and Anticipated Discharge Date Admission Date: August 04, 2025 Subjective Pt Review of Systems Review of Systems: CONST: Negative for fever, body aches and chills. HENT: Negative for neck pain/stiffness, headache, congestion, sore throat, swelling. EYES: Negative for discharge/pain or vision changes. RESP: Negative for cough/hemoptysis and shortness of breath. CV: Negative chest pain, difficulty breathing, palpitations. ABD: Negative pain, nausea, vomiting. : Negative increase frequency, dysuria, blood in urine or stool. MUSC: Negative for muscle aches, edema. SKIN: Negative rash, lesions/sores. NEURO: Negative headache, dizziness, weakness. Physical Exam Physical Exam: GENERAL APPEARANCE NAD, activity normal for age, well developed/ well nourished, no cyanosis, pallor, or diaphoresis. EYES lids/conjunctiva normal. EARS/NOSE/THROAT Mucous membranes moist, nares normal, lips/teeth normal uvula midline without oral pharyngeal erythema, exudate or swelling TMs normal bilaterally. No lymphangitis/lymphedema. HEAD/NECK normocephalic atraumatic, no facial trauma, neck is supple. RESPIRATORY respiratory effort normal, speaks in full sentences, no tripod position, no accessory muscle use. Lungs clear to auscultation without rhonchi, wheezes, rales CARDIAC Regular rate and rhythm, no edema. ABDOMINAL Soft, ND/NT. No evidence of fluid wave. No pulsatile masses on exam, rebound tenderness, Maldonado sign or pain over Mcburney's point. MUSCLES/EXTREMITIES No abnormal range of motion, no swelling. SKIN Warm, pink and dry. No rashes, dermatoses, petechiae or lesions. NEUROLOGICAL Speech is clear and appropriate. Normal level of consciousness. Gait and coordination are normal. 5/5 strength in all extremities. PSYCH Normal mood and affect. Judgement/competence is appropriate Results & Data Results & Data Vital Signs (Past 12 Hours) Vital Signs Temp Pulse Resp BP Pulse Ox O2 Del Method 08/06/25 07:11 36.5 C 60 16 178/93 H 96 Room Air 08/06/25 03:36 158/94 H 08/06/25 01:13 177/89 H 08/06/25 00:35 175/89 H 08/05/25 23:50 36.6 C 59 L 16 180/89 H 95 Room Air PG Care Time/CCT Total # of Minutes Spent Total Time Spent with Patient: Total time spent is greater than 50% in coordination of care (as documented) at patient's floor/unit and/or counseling patient: Coding Level of Care Code 94230 SUB INP/OBS CARE 2/35MIN Diagnoses Low back pain M54.50 Primary hypertension I10 Hypertension type: primary hypertension GERD (gastroesophageal reflux disease) K21.9 Diabetes type 2, controlled E11.9 Secondary adrenal insufficiency E27.49 Hypothyroidism E03.9 (2) Hypertension Hypertension type: primary hypertension Qualified Code(s): I10 - Essential (primary) hypertension
[2025-08-06] MEDS: GADOBUTROL 65ML VIAL IV ONE (13:09)
--- NOTE | 2025-08-06 13:42 | Magnetic Resonance Report ---
MRI OF THE THORACIC SPINE WITH AND WITHOUT CONTRAST CLINICAL HISTORY: Back pain. Fall in early July. COMPARISON: Thoracic spine CT October 09, 2024. Thoracic spine radiographs July 24, 2024. TECHNIQUE: Utilizing a 1.5 Keila magnet and dedicated coil, multiplanar, multiecho imaging of the th oracic spine was performed before and after the intravenous administration of 8 cc. FINDINGS: Alignment of the thoracic spine is anatomic. Thoracic vertebral body heights are maintained . There are no thoracic spine fractures. Multilevel discogenic changes are noted. Thoracic cord signa l and caliber are normal. There is moderate multilevel disc space narrowing, endplate osteophytosis a nd facet arthrosis within the thoracic spine. Mild multilevel disc bulges are present. There is no si gnificant central canal stenosis within the thoracic spine. There is mild multilevel neural foraminal stenosis. Of note, there is mild loss of height of the superior endplate of L1 with an associated ho rizontal linear T1 and T2 hypointense focus along the superior endplate. There is 20% loss of vertebr al body height with minimal retropulsion. This does not result in central canal stenosis. Associated marrow edema and enhancement is present. There is also paravertebral edema and enhancement. No associ ated intracanalicular fluid collection is present. IMPRESSION: 1. No thoracic spine fractures. Mild to moderate multilevel degenerative changes within the thoracic spine. 2. Acute mild L1 compression fracture with 20% loss of vertebral body height and minimal retropulsion without central canal stenosis. Associated paravertebral edema. ACT 112: Negative or not required by law. Electronically signed by: Rob Kraus M.D. 08/06/2025 1:40 PM
--- NOTE | 2025-08-06 13:46 | Magnetic Resonance Report ---
MR lumbar spine wo/w con CLINICAL HISTORY: Back Pain. Fall. TECHNIQUE: Multiplanar, multi sequence MRI of the lumbar spine was performed without intravenous cont rast. Compared with CT of 08/03/2025 Findings: There is motion artifact. Conus medullaris terminates normally at L1. There is a mild vertebral body compression fracture at L1 with mild height loss and there is a tiny a cute appearing nondisplaced fracture at the anterior superior aspect of the L1 vertebral body. There is increased STIR signal throughout the majority of the L1 vertebral body. Findings are consistent wi th acute to recent subacute fractures at L1. There is expected enhancement of the L1 fracture. No oth er abnormal enhancement seen. No other lumbar spine fracture seen. There is minimal retrolisthesis of L2 on 3 and minimal anterolisthesis of L3 on 4 and L4 on 5, stable . There is a stable hemangioma at the L5 vertebral body. There is diffuse degenerative disc disease a nd lower lumbar facet and ligamentum flavum hypertrophy. 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 L1-2: There is a mild disc bulge. No significant central canal narrowing. There is mild bilateral lionel ral foraminal narrowing. L2-3: There is a mild disc bulge with mild ligamentum flavum and facet hypertrophy. No significant ce ntral canal narrowing. There is mild bilateral neural foraminal narrowing. L3-4: There is a mild disc bulge with mild ligamentum flavum and facet hypertrophy. No significant ce ntral canal narrowing. There is mild bilateral neural foraminal narrowing. There are tiny perineural cysts bilaterally. L4-5: There is a mild disc bulge with ligamentum flavum and facet hypertrophy. No significant central canal narrowing. There is mild bilateral neural foraminal narrowing. There is a small perineural cys t on the right. L5-S1: There is a mild disc bulge with mild ligamentum flavum flavum and facet hypertrophy. No signif icant central canal or neural foraminal narrowing. There are a few cysts at the kidneys. IMPRESSION: 1. Acute to recent subacute mild vertebral body compression fracture at L1. 2. Degenerative changes as described. ACT 112: Negative or not required by law. The above report was generated using voice recognition software. It may contain grammatical, syntax o r spelling errors. Electronically signed by: Bacilio De Luna M.D. 08/06/2025 1:45 PM
--- NOTE | 2025-08-07 09:14 | Hospitalist Progress Note ---
Date of Service August 07, 2025 Assessment & Plan (1) Low back pain: Plan: -dilaudid -perocet -solu-medrol 125mg IV given -spine surgery consult appreciated -possible L1 endplate compression fx -MRI spine confirms acute to recent subacute mild vertebral body compression fracture at L1. -PT/OT -TSLO (2) Hypertension: Plan: -losartan (3) GERD (gastroesophageal reflux disease): Plan: -protonix (4) Diabetes type 2, controlled: Plan: -pharm consult for glycemic management (5) Secondary adrenal insufficiency: Plan: -prednisone (6) Hypothyroidism: Plan: -levothyroxine Admission and Anticipated Discharge Date Admission Date: August 04, 2025 Subjective No events overnight, pt still with severe pain requiring Dilaudid IV. Review of Systems Review of Systems: CONST: Negative for fever, body aches and chills. HENT: Negative for neck pain/stiffness, headache, congestion, sore throat, swelling. EYES: Negative for discharge/pain or vision changes. RESP: Negative for cough/hemoptysis and shortness of breath. CV: Negative chest pain, difficulty breathing, palpitations. ABD: Negative pain, nausea, vomiting. : Negative increase frequency, dysuria, blood in urine or stool. MUSC: Negative for muscle aches, edema. SKIN: Negative rash, lesions/sores. NEURO: Negative headache, dizziness, weakness. Physical Exam Physical Exam: GENERAL APPEARANCE NAD, activity normal for age, well developed/ well nourished, no cyanosis, pallor, or diaphoresis. EYES lids/conjunctiva normal. EARS/NOSE/THROAT Mucous membranes moist, nares normal, lips/teeth normal uvula midline without oral pharyngeal erythema, exudate or swelling TMs normal bilaterally. No lymphangitis/lymphedema. HEAD/NECK normocephalic atraumatic, no facial trauma, neck is supple. RESPIRATORY respiratory effort normal, speaks in full sentences, no tripod position, no accessory muscle use. Lungs clear to auscultation without rhonchi, wheezes, rales CARDIAC Regular rate and rhythm, no edema. ABDOMINAL Soft, ND/NT. No evidence of fluid wave. No pulsatile masses on exam, rebound tenderness, Maldonado sign or pain over Mcburney's point. MUSCLES/EXTREMITIES No abnormal range of motion, no swelling. SKIN Warm, pink and dry. No rashes, dermatoses, petechiae or lesions. NEUROLOGICAL Speech is clear and appropriate. Normal level of consciousness. Gait and coordination are normal. 5/5 strength in all extremities. PSYCH Normal mood and affect. Judgement/competence is appropriate Results & Data Results & Data Vital Signs (Past 12 Hours) Vital Signs Temp Pulse Resp BP Pulse Ox O2 Del Method 08/07/25 07:06 36.5 C 66 16 160/97 H 97 Room Air 08/06/25 23:00 36.8 C 61 18 179/94 H 94 Room Air PG Care Time/CCT Total # of Minutes Spent Total Time Spent with Patient: Total time spent is greater than 50% in coordination of care (as documented) at patient's floor/unit and/or counseling patient: Coding Level of Care Code 40662 SUB INP/OBS CARE 2/35MIN Diagnoses Low back pain M54.50 Primary hypertension I10 Hypertension type: primary hypertension GERD (gastroesophageal reflux disease) K21.9 Diabetes type 2, controlled E11.9 Secondary adrenal insufficiency E27.49 Hypothyroidism E03.9 (2) Hypertension Hypertension type: primary hypertension Qualified Code(s): I10 - Essential (primary) hypertension
[2025-08-07] MEDS: TERIPARATIDE 20 MCG SQ SCH (09:20)
--- NOTE | 2025-08-07 13:17 | Pharmacy Report ---
Pharmacy Glycemic Sign Off Nt - Date of Service August 07, 2025 - Assessment & Plan ASSESSMENT: Pharmacy was consulted by Dr Graff on 08/04/25 for glycemic control and to write orders per [facility] inpatient glycemic control protocol. * Major changes made by pharmacy to antidiabetic regimen include: * no home antidiabetic prescriptions, just Novolog with very loose parameters being used while admitted * Patient has been receiving/requiring 1-4 units of insulin per day for adequate glycemic control * BSGs ranging 102-136 mg/dl * Regimen has only required minor adjustments over the past 48hrs to achieve this level of control * Do not anticipate further changes in patient status that would quickly deteriorate glycemic control (i.e. patient to be NPO for upcoming procedure, steroids tapering, starting tube feedings, etc). PLAN FOR INPATIENT GLYCEMIC CONTROL: No changes needed to current regimen. * No basal insulin * Continue NovoLog per scale ACHS/Q6hrs while NPO * Goal range = 120-150 mg/dl * CF = 45 mg/dl/unit * CR = 1 unit for ever 30 g CHO consumed * Pharmacy is signing off of glycemic consult and will no longer be making adjustments to inpatient regimen. Please feel free to re-consult if needed. Thank you.
--- NOTE | 2025-08-08 11:00 | Hospitalist Progress Note ---
Date of Service August 08, 2025 Assessment & Plan (1) Low back pain: Plan: -dilaudid -perocet -solu-medrol 125mg IV given -spine surgery consult appreciated -possible L1 endplate compression fx -MRI spine confirms acute to recent subacute mild vertebral body compression fracture at L1. -PT/OT -TSLO (2) Hypertension: Plan: -losartan (3) GERD (gastroesophageal reflux disease): Plan: -protonix (4) Diabetes type 2, controlled: Plan: -pharm consult for glycemic management (5) Secondary adrenal insufficiency: Plan: -prednisone (6) Hypothyroidism: Plan: -levothyroxine Admission and Anticipated Discharge Date Admission Date: August 04, 2025 Subjective Pt states her pain has improved to 7/10, has started taking percocet over dilaudid Review of Systems Review of Systems: CONST: Negative for fever, body aches and chills. HENT: Negative for neck pain/stiffness, headache, congestion, sore throat, swelling. EYES: Negative for discharge/pain or vision changes. RESP: Negative for cough/hemoptysis and shortness of breath. CV: Negative chest pain, difficulty breathing, palpitations. ABD: Negative pain, nausea, vomiting. : Negative increase frequency, dysuria, blood in urine or stool. MUSC: Negative for muscle aches, edema. SKIN: Negative rash, lesions/sores. NEURO: Negative headache, dizziness, weakness. Physical Exam Physical Exam: GENERAL APPEARANCE NAD, activity normal for age, well developed/ well nourished, no cyanosis, pallor, or diaphoresis. EYES lids/conjunctiva normal. EARS/NOSE/THROAT Mucous membranes moist, nares normal, lips/teeth normal uvula midline without oral pharyngeal erythema, exudate or swelling TMs normal bilaterally. No lymphangitis/lymphedema. HEAD/NECK normocephalic atraumatic, no facial trauma, neck is supple. RESPIRATORY respiratory effort normal, speaks in full sentences, no tripod position, no accessory muscle use. Lungs clear to auscultation without rhonchi, wheezes, rales CARDIAC Regular rate and rhythm, no edema. ABDOMINAL Soft, ND/NT. No evidence of fluid wave. No pulsatile masses on exam, rebound tenderness, Maldonado sign or pain over Mcburney's point. MUSCLES/EXTREMITIES No abnormal range of motion, no swelling. SKIN Warm, pink and dry. No rashes, dermatoses, petechiae or lesions. NEUROLOGICAL Speech is clear and appropriate. Normal level of consciousness. Gait and coordination are normal. 5/5 strength in all extremities. PSYCH Normal mood and affect. Judgement/competence is appropriate Results & Data Results & Data Vital Signs (Past 12 Hours) Vital Signs Temp Pulse Resp BP Pulse Ox O2 Del Method O2 Flow Rate 08/08/25 07:46 36.9 C 65 18 126/81 98 Nasal Cannula 2 08/07/25 23:00 36.7 C 61 16 164/92 H 94 Room Air PG Care Time/CCT Total # of Minutes Spent Total Time Spent with Patient: Total time spent is greater than 50% in coordination of care (as documented) at patient's floor/unit and/or counseling patient: Coding Level of Care Code 00041 SUB INP/OBS CARE 2/35MIN Diagnoses Low back pain M54.50 Primary hypertension I10 Hypertension type: primary hypertension GERD (gastroesophageal reflux disease) K21.9 Diabetes type 2, controlled E11.9 Secondary adrenal insufficiency E27.49 Hypothyroidism E03.9 (2) Hypertension Hypertension type: primary hypertension Qualified Code(s): I10 - Essential (primary) hypertension
--- NOTE | 2025-08-09 11:35 | Hospitalist Progress Note ---
Date of Service August 09, 2025 Assessment & Plan (1) Low back pain: Plan: -dilaudid -perocet -solu-medrol 125mg IV given -spine surgery consult appreciated -possible L1 endplate compression fx -MRI spine confirms acute to recent subacute mild vertebral body compression fracture at L1. -PT/OT -TSLO -pt is still apprehensive about going home today, and would like to manage 24hrs without IV pain meds -d/c home 08/10 on Percocet (2) Hypertension: Plan: -losartan (3) GERD (gastroesophageal reflux disease): Plan: -protonix (4) Diabetes type 2, controlled: Plan: -pharm consult for glycemic management (5) Secondary adrenal insufficiency: Plan: -prednisone (6) Hypothyroidism: Plan: -levothyroxine Admission and Anticipated Discharge Date Admission Date: August 04, 2025 Subjective Pt states he pain has improved, she is taking Percocet, and limiting use of Dilaudid. She is still apprehensive about going home today, and would like to manage 24hrs without IV pain meds. Review of Systems Review of Systems: CONST: Negative for fever, body aches and chills. HENT: Negative for neck pain/stiffness, headache, congestion, sore throat, swelling. EYES: Negative for discharge/pain or vision changes. RESP: Negative for cough/hemoptysis and shortness of breath. CV: Negative chest pain, difficulty breathing, palpitations. ABD: Negative pain, nausea, vomiting. : Negative increase frequency, dysuria, blood in urine or stool. MUSC: Negative for muscle aches, edema. SKIN: Negative rash, lesions/sores. NEURO: Negative headache, dizziness, weakness. Results & Data Results & Data Vital Signs (Past 12 Hours) Vital Signs Temp Pulse Resp BP Pulse Ox O2 Del Method O2 Flow Rate 08/09/25 09:44 Nasal Cannula 2 08/09/25 06:59 36.5 C 61 18 129/74 95 Room Air 08/08/25 23:41 36.5 C 67 18 155/82 H 95 Nasal Cannula 2 PG Care Time/CCT Total # of Minutes Spent Total Time Spent with Patient: Total time spent is greater than 50% in coordination of care (as documented) at patient's floor/unit and/or counseling patient: Coding Level of Care Code 26092 SUB INP/OBS CARE 2/35MIN Diagnoses Low back pain M54.50 Primary hypertension I10 Hypertension type: primary hypertension GERD (gastroesophageal reflux disease) K21.9 Diabetes type 2, controlled E11.9 Secondary adrenal insufficiency E27.49 Hypothyroidism E03.9 (2) Hypertension Hypertension type: primary hypertension Qualified Code(s): I10 - Essential (primary) hypertension
[2025-08-09 13:27] LABS: Appearance Urine Clear (Clear); Bacteria Urine Automated None Seen (None Seen); Cast Urine Automated 0-2 /lpf (0-2); Epithelial Cell Urine Auto 0-2 /hpf (0-2); Glucose Urine UA Negative (Negative); RBC Urine Automated 0-2 /hpf (0-2); WBC Urine Automated 0-5 /hpf (0-5)
[2025-08-10] MEDS ORDERED: MoRPHine SULFATE 4 MG/ML 1 ML CARP\\VIAL IV PRN (11:52)
[2025-08-10] MEDS ORDERED: POLYETHYLENE (MIRALAX) 17 GM PACK PO PRN (11:57)
--- NOTE | 2025-08-10 11:57 | Hospitalist Progress Note ---
Date of Service August 10, 2025 Assessment & Plan (1) Compression fracture of L1 vertebra: (2) Low back pain: (3) Hypertension: (4) GERD (gastroesophageal reflux disease): (5) Diabetes type 2, controlled: (6) Secondary adrenal insufficiency: Plan 80 y/o female with pmh of afib on eliquis, DM, adrenal insufficiency, asthma, HTN, who presented with intractable back pain after sustaining a ground level fall 3 days [employer]. Since then she has had progressively worsening back pain. She presented to the ER on 08/02 with symptoms of back pain, had CT spine, which showed no acute pathology and was diagnosed with musculoskeletal pain and sent home on Percocet. She returned on 08/04 due to intractable back pain and she had loss of bladder and bowel continence. MRIs of T and L spine were significant for L1 compression fracture. She was admitted for management of such. #L1 compression fracture | Lower back pain - Prior pain regimen of Percocet 5-325 mg and IV Dilaudid not appropriately controlling pain - now discontinued - Pain regimen adjusted: Tylenol 1,000 mg Q8h scheduled, oxycodone 5-10 mg Q4h PRN mod-severe pain, morphine 4 mg IV Q4h PRN breakthrough pain - Start lidocaine patch daily - Start calcitonin nasal spray once daily - Continue Methocarbamol 500 mg Q8h PRN muscle spasms - Continue TLSO brace - patient reports improvement with this - MiraLAX available daily as needed for opioid induced constipation - Follow-up with ortho spine outpatient in 4-6 weeks #Hypertension - continue Losartan #T2DM - Pharmacy glycemic consult in place and managing #GERD - continue Protonix #Secondary adrenal insufficiency - continue Hydrocortisone #Hypothyroidism - Continue levothyroxine VTE PPx: Dispo: Anticipate discharge in next 24-48 hours once pain control is improved. Updated at bedside Adjusted pain regimen Started MiraLAX Admission and Anticipated Discharge Date Admission Date: August 04, 2025 Subjective Patient seen and evaluated at bedside with her present. She reports her back pain is not controlled with her current regimen. She feels as though the Percocet does not control her pain well enough. She notes that the Dilaudid IV does control her pain, but also makes her head feel "loopy." We discussed altering her pain regimen and discussed this in detail. Hopeful that with these changes she will have improved pain control and potentially could discharge home tomorrow. She reports that her appetite was improved for breakfast, but she does not have any appetite for lunch due to her pain. She denies issues with constipation currently; she reports a BM this AM. We discussed utilizing a bowel regimen with her narcotic pain medications. No additional complaints or concerns at this time. Physical Exam Physical Exam: General: No acute distress, nondiaphoretic, well-developed, well-nourished. Skin: Warm, dry. No rashes or peripheral edema noted. Cardiac: Regular rate and rhythm without murmurs gallops or rubs. Pulm: Clear to auscultation bilaterally without wheezes, rales or rhonchi. Normal respiratory effort. 95% on room air. Abdominal: Soft, nontender, nondistended. Bowel sounds present. Neuro: A&O x3. No focal neurological deficits. PG Care Time/CCT Total # of Minutes Spent Total Time Spent with Patient: Total time spent is greater than 50% in coordination of care (as documented) at patient's floor/unit and/or counseling patient: Coding Level of Care Code 16418 SUB INP/OBS CARE 3/50MIN Diagnoses Compression fracture of L1 vertebra S32.010A Low back pain M54.50 Primary hypertension I10 Hypertension type: primary hypertension GERD (gastroesophageal reflux disease) K21.9 Diabetes type 2, controlled E11.9 Secondary adrenal insufficiency E27.49 (3) Hypertension Hypertension type: primary hypertension Qualified Code(s): I10 - Essential (primary) hypertension
[2025-08-10] MEDS: LIDOCAINE 5% 1 PATCH TD STA (12:06)
[2025-08-10] MEDS: CALCITONIN SALMON NA 200 IU/AC 3.7 ML BTL SCH (12:08)
[2025-08-10] MEDS: ACETAMINOPHEN 500 MG TAB PO SCH (12:13)
[2025-08-10 15:06] VITALS: RESP 16
[2025-08-10] MEDS: REMOVE LIDODERM PATCH SCH (20:11)
[2025-08-10 23:02] VITALS: O2SAT 93
[2025-08-11 07:32] VITALS: BP 136/85; PULSE 60; TEMP 97.9
[2025-08-11] MEDS: LIDOCAINE 5% 1 PATCH TD SCH (08:03)
--- NOTE | 2025-08-11 16:17 | Discharge Summary ---
Discharge Summary Date of Service August 11, 2025 Principal Dx & Hospital Course #1 = Principal Diagnosis (1) Compression fracture of L1 vertebra: (2) Low back pain: (3) Hypertension: (4) GERD (gastroesophageal reflux disease): (5) Diabetes type 2, controlled: (6) Secondary adrenal insufficiency: Plan 80 y/o female with pmh of afib on eliquis, DM, adrenal insufficiency, asthma, HTN, who presented with intractable back pain after sustaining a ground level fall 3 days [employer]. Since then she has had progressively worsening back pain. She presented to the ER on 08/02 with symptoms of back pain, had CT spine, which showed no acute pathology and was diagnosed with musculoskeletal pain and sent home on Percocet. She returned on 08/04 due to intractable back pain and she had loss of bladder and bowel continence. MRIs of T and L spine were significant for L1 compression fracture. She was admitted for management of such. #L1 compression fracture | Lower back pain - Prior pain regimen of Percocet 5-325 mg and IV Dilaudid not appropriately controlling pain - now discontinued - Pain regimen adjusted: Tylenol 1,000 mg Q8h scheduled, oxycodone 5-10 mg Q4h PRN mod-severe pain - Continue lidocaine patch daily - Continue calcitonin nasal spray once daily, alternating nares x 2 weeks - Continue Methocarbamol 500 mg Q8h PRN muscle spasms - Continue TLSO brace - patient reports improvement with this - MiraLAX available daily as needed for opioid induced constipation - Follow-up with ortho spine outpatient in 4-6 weeks #Hypertension - continue Losartan #T2DM - Pharmacy glycemic consult managed while inpatient. Home regimen resumed on discharge #GERD - continue Protonix #Secondary adrenal insufficiency - continue Hydrocortisone #Hypothyroidism - Continue levothyroxine VTE PPx: Dispo: Discharged home 08/11 Notes For Next Care Provider Medication Changes From Visit Oxycodone 5-10 mg every 4 hours as needed for moderatesevere pain Lidocaine patch daily Calcitonin nasal spray once daily, alternating naris Admission HPI Per Admitting Provider Pt is a 80 y/o female with pmh of afib on eliquis, DM, adrenal insufficiency, asthma, HTN, who presents with tractable back pain after sustaining a fall a few days ago. Pt states she fell from a standing position on to her sided about 3 days ago. Since then she has had progressively worsening back pain. She presented to the ER on 08/02 with symptoms of back pain, had CT spine, which showed no acute pathology and was diagnosed with musculoskeletal pain and sent home on percocet. Today when she woke up her back pain was unbearable and she had loss of bladder and bowel continence. She denies any motor or sensor loss in her legs. In the ER she continued to have intractable pain despite receiving Dilaudid. An MRI of the T/L spine was ordered, pending clearance from [facility] as patient has possible brain aneurysmal clip. Pt is being admitted for further pain control and evaluation by ortho-spine. Discharge Exam General: No acute distress, nondiaphoretic, well-developed, well-nourished. Skin: Warm, dry. No rashes or peripheral edema noted. Cardiac: Regular rate and rhythm without murmurs gallops or rubs. Pulm: Clear to auscultation bilaterally without wheezes, rales or rhonchi. N ormal respiratory effort. 93% on room air. Abdominal: Soft, nontender, nondistended. Bowel sounds present. Neuro: A&O x3. No focal neurological deficits. Discharge Plan Discharge Items Patient Disposition: Home - Home Health Services Reason For Visit: INTRACTABLE BACK PAIN Discharge Diagnosis: L1 compression fracture Condition on Discharge: Fair Activity: Per Instructions section Non-emergency contact: Primary Care Provider and Surgeon Call non-emergency contact if: you have any medication questions, your symptoms worsen and your pain is not controlled Follow-up/Referrals: Breezy De Anda MD [Surgeon] - 09/09/25 2:50 pm (Follow-up in 4-6 weeks) Cristobal Gamino MD [Primary Care Provider] - 08/12/25 9:30 am (Follow-up in 1-2 weeks) Diet: Carb Consistent or DM2 Addtl Attending Provider Instructions: Brittany, You were admitted to the hospital due to intractable back pain. You were found to have a compression fracture of your first lumbar vertebrae (L1). This was likely caused by your fall in the beginning of July. You were evaluated by the orthopedic spine surgeon who recommended conservative management. You were also evaluated by PT and OT who cleared you to return home. Now that your pain is under better control, you are ready to be discharged home. Upon discharge from the hospital: * Continue to wear your TLSO brace with ambulation/movement. You do not need to wear this when sitting or sleeping. * Take Tylenol 1000 mg every 8 hours as your first-line pain control. * Take oxycodone 5 mg every 4 hours as needed for moderate pain, and 10 mg every 4 hours as needed for severe pain. Do not drive or operate heavy machinery while taking oxycodone as it is a narcotic pain medication. * Take Robaxin (muscle relaxer) every 8 hours as needed for muscle spasms. * Apply lidocaine patch to your lumbar spine daily. I recommend applying a lidocaine patch in the morning, wearing for 12 hours, then removing for 12 hours, repeat. I have sent in 5% lidocaine patches to your pharmacy - if these are expensive, you can get 4% lidocaine patches [id number]. * Use calcitonin nasal spray 1 spray in 1 nostril daily, alternating nostrils x 2 weeks. This helps with compression fracture related pain. * You can use MiraLAX as needed for constipation. This is available [id number]. * Follow-up with your PCP in 1-2 weeks. * Follow-up with Dr. De Anda from the orthopedic spine surgery team in 4-6 weeks for repeat x-rays and to check in on your progress. Please return to the hospital if you experience any of the following: Severe pain uncontrolled by medications, fall with injury, chest pain, difficulty breathing, persistent nausea with vomiting, passing out, confusion, or any other symptoms concerning for you. It was a pleasure taking care of you while you were in the hospital! Pending Studies at Discharge: No Stand-Alone Forms: My [facility], Smoking Cessation Medications and DC Order Prescriptions: New acetaminophen [Tylenol Extra Strength] 500 mg Tablet 1,000 mg PO Q8H Qty: 60 0RF oxycodone 5 mg Tablet 5 - 10 mg PO Q4H PRN (Reason: moderate-severe pain) Qty: 25 0RF lidocaine 5 % Adhesive Patch,Medicated 1 patch transdermal QAM Qty: 15 0RF calcitonin (salmon) 200 unit/actuation [place],Non-Aerosol 1 spray NA DAILY Qty: 3.7 0RF Continued ezetimibe 10 mg tablet 10 mg PO QAM Qty: 90 3RF rosuvastatin 5 mg tablet 5 mg PO WK Qty: 14 3RF Rx Instructions: TAKE THIS MED EVERY SUNDAY (DME) lancets [OneTouch Delica Plus Lancet] [facility] See Rx Instructions .ROUTE .MEDSUPPLY Qty: 100 3RF Rx Instructions: test one time daily (DME) blood sugar diagnostic Strip See Rx Instructions .ROUTE .MEDSUPPLY Qty: 100 3RF Rx Instructions: test blood sugar once a day. OneTouch Ultra Test levothyroxine [Synthroid] 100 mcg tablet 100 mcg PO PM Qty: 90 3RF Rx Instructions: MUST BE SYNTHROID Eliquis 5 mg tablet 5 mg PO BID Qty: 180 3RF magnesium oxide [MagOx] 400 mg (241.3 mg magnesium) tablet 400 mg PO DAILY Qty: 90 3RF Rx Instructions: Pt requested 90 day supply cyanocobalamin (vitamin B-12) 1,000 mcg capsule 1,000 mcg PO HS cholecalciferol (vitamin D3) 125 mcg (5,000 unit) capsule 125 mcg PO DAILY Qty: 30 0RF Rx Instructions: along with a 1,000 unit caps; total 6,000 units daily cholecalciferol (vitamin D3) 25 mcg (1,000 unit) capsule 25 mcg PO DAILY Qty: 30 0RF Rx Instructions: along with a 5,000 capsule; total 6,000 units daily methocarbamol 500 mg tablet 500 mg PO Q8H PRN (Reason: muscle spasm) Qty: 30 0RF losartan 100 mg tablet 100 mg PO DAILY Qty: 90 3RF metoprolol succinate 100 mg tablet extended release 24 hr 100 mg PO DAILY Qty: 90 3RF pantoprazole 40 mg tablet,delayed release (DR/EC) 40 mg PO DAILY Qty: 90 3RF (DME) pen needle, diabetic 31 gauge x 3/16" needle See Rx Instructions .Route Qty: 100 3RF Rx Instructions: use once daily with Forteo teriparatide [Forteo] 20 mcg/dose (560mcg/2.24mL) pen injector 20 mcg subcut DAILY Qty: 6.72 3RF calcium citrate 200 mg (950 mg) Tablet 200 mg PO HS albuterol sulfate 90 mcg/actuation HFA aerosol inhaler 1 inh inhalation QID PRN (Reason: Shortness Of Breath Or Wheezing) hydrocortisone 5 mg tablet 10 mg PO QAM Rx Instructions: Take 10mg by mouth in the AM and 5mg by mouth in the PM. MAY DOUBLE IN TIMES OF STRESS. hydrocortisone 5 mg tablet 5 mg PO QPM mometasone 0.1 % cream 1 applic topical DAILY PRN (Reason: Skin Irritation) Discontinued oxycodone 5 mg tablet 5 mg PO Q8H PRN (Reason: pain) Qty: 20 0RF acetaminophen [Tylenol] 325 mg tablet 975 mg PO TID PRN (Reason: Pain/Fever) oxycodone-acetaminophen [Percocet] 5-325 mg tablet 1 tab PO Q4H PRN (Reason: pain) Qty: 14 0RF Discharge Orders: Discharge Order (Routine); Ordered 08/11/25 Ordered By: Anushka Baez/Other Patient Handouts: High Blood Sugar (Hyperglycemia), Hypoglycemia (Low Blood Sugar), Managing Type 2 Diabetes, How to Check Your Blood Sugar Admission Data Admit Date/Time: 08/04/25 15:13 Attending Provider: Tavon Saavedra Admit Provider: Ayan Graff Primary Care Provider: Cristobal Gamino Other Providers: Breezy De Anda; Ayan Graff Other Interventions: Discharge Summary Assessment (RN) Last Done: 08/11/25 14:24 Hospital Stay Data Consultations 08/04/25 15:00 ED Decision to Admit Stat 08/04/25 15:12 Consult Orthopedic Surgery Routine Diagnostic Imagining Performed Lumbar Spine MRI 08/06/25 00:00 MR lumbar spine wo/w con CLINICAL HISTORY: Back Pain. Fall. TECHNIQUE: Multiplanar, multi sequence MRI of the lumbar spine was performed without intravenous contrast. Compared with CT of 08/03/2025 Findings: There is motion artifact. Conus medullaris terminates normally at L1. There is a mild vertebral body compression fracture at L1 with mild height loss and there is a tiny acute appearing nondisplaced fracture at the anterior superior aspect of the L1 vertebral body. There is increased STIR signal throughout the majority of the L1 vertebral body. Findings are consistent with acute to recent subacute fractures at L1. There is expected enhancement of the L1 fracture. No other abnormal enhancement seen. No other lumbar spine fracture seen. There is minimal retrolisthesis of L2 on 3 and minimal anterolisthesis of L3 on 4 and L4 on 5, stable. There is a stable hemangioma at the L5 vertebral body. There is diffuse degenerative disc disease and lower lumbar facet and ligamentum flavum hypertrophy. 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 L1-2: There is a mild disc bulge. No significant central canal narrowing. There is mild bilateral neural foraminal narrowing. L2-3: There is a mild disc bulge with mild ligamentum flavum and facet hypertrophy. No significant central canal narrowing. There is mild bilateral neural foraminal narrowing. L3-4: There is a mild disc bulge with mild ligamentum flavum and facet hypertrophy. No significant central canal narrowing. There is mild bilateral neural foraminal narrowing. There are tiny perineural cysts bilaterally. L4-5: There is a mild disc bulge with ligamentum flavum and facet hypertrophy. No significant central canal narrowing. There is mild bilateral neural foraminal narrowing. There is a small perineural cyst on the right. L5-S1: There is a mild disc bulge with mild ligamentum flavum flavum and facet hypertrophy. No significant central canal or neural foraminal narrowing. There are a few cysts at the kidneys. IMPRESSION: 1. Acute to recent subacute mild vertebral body compression fracture at L1. 2. Degenerative changes as described. ACT 112: Negative or not required by law. The above report was generated using voice recognition software. It may contain grammatical, syntax or spelling errors. Electronically signed by: Bacilio De Luna M.D. 08/06/2025 1:45 PM Thoracic Spine MRI 08/06/25 00:00 MRI OF THE THORACIC SPINE WITH AND WITHOUT CONTRAST CLINICAL HISTORY: Back pain. Fall in early July. COMPARISON: Thoracic spine CT October 09, 2024. Thoracic spine radiographs July 24, 2024. TECHNIQUE: Utilizing a 1.5 Keila magnet and dedicated coil, multiplanar, multiecho imaging of the thoracic spine was performed before and after the intravenous administration of 8 cc. FINDINGS: Alignment of the thoracic spine is anatomic. Thoracic vertebral body heights are maintained. There are no thoracic spine fractures. Multilevel discogenic changes are noted. Thoracic cord signal and caliber are normal. There is moderate multilevel disc space narrowing, endplate osteophytosis and facet arthrosis within the thoracic spine. Mild multilevel disc bulges are present. T here is no significant central canal stenosis within the thoracic spine. There is mild multilevel neural foraminal stenosis. Of note, there is mild loss of height of the superior endplate of L1 with an associated horizontal linear T1 and T2 hypointense focus along the superior endplate. There is 20% loss of vertebral body height with minimal retropulsion. This does not result in central canal stenosis. Associated marrow edema and enhancement is present. There is also paravertebral edema and enhancement. No associated intracanalicular fluid collection is present. IMPRESSION: 1. No thoracic spine fractures. Mild to moderate multilevel degenerative changes within the thoracic spine. 2. Acute mild L1 compression fracture with 20% loss of vertebral body height and minimal retropulsion without central canal stenosis. Associated paravertebral edema. ACT 112: Negative or not required by law. Electronically signed by: Rob Kraus M.D. 08/06/2025 1:40 PM Pending Results Patient Have Any Pending Studies at Discharge: No Discharge Instructions Given to Patient (Per Discharging Provider) Brittany, You were admitted to the hospital due to intractable back pain. You were found to have a compression fracture of your first lumbar vertebrae (L1). This was likely caused by your fall in the beginning of July. You were evaluated by the orthopedic spine surgeon who recommended conservative management. You were also evaluated by PT and OT who cleared you to return home. Now that your pain is under better control, you are ready to be discharged home. Upon discharge from the hospital: * Continue to wear your TLSO brace with ambulation/movement. You do not need to wear this when sitting or sleeping. * Take Tylenol 1000 mg every 8 hours as your first-line pain control. * Take oxycodone 5 mg every 4 hours as needed for moderate pain, and 10 mg every 4 hours as needed for severe pain. Do not drive or operate heavy machinery while taking oxycodone as it is a narcotic pain medication. * Take Robaxin (muscle relaxer) every 8 hours as needed for muscle spasms. * Apply lidocaine patch to your lumbar spine daily. I recommend applying a lidocaine patch in the morning, wearing for 12 hours, then removing for 12 hours, repeat. I have sent in 5% lidocaine patches to your pharmacy - if these are expensive, you can get 4% lidocaine patches [id number]. * Use calcitonin nasal spray 1 spray in 1 nostril daily, alternating nostrils x 2 weeks. This helps with compression fracture related pain. * You can use MiraLAX as needed for constipation. This is available [id number]. * Follow-up with your PCP in 1-2 weeks. * Follow-up with Dr. De Anda from the orthopedic spine surgery team in 4-6 weeks for repeat x-rays and to check in on your progress. Please return to the hospital if you experience any of the following: Severe pain uncontrolled by medications, fall with injury, chest pain, difficulty breathing, persistent nausea with vomiting, passing out, confusion, or any other symptoms concerning for you. It was a pleasure taking care of you while you were in the hospital! Total Time Total Time Spent Total Time Spent (In Minutes): Greater than 30 minutes spent completing this discharge process including direct patient care, medication reconciliation, documentation, review of labs and images, and coordination of care. Coding Level of Care Code 99317 INP/OBS DISCH >30 MIN Diagnoses Compression fracture of L1 vertebra S32.010A Low back pain M54.50 Primary hypertension I10 Hypertension type: primary hypertension GERD (gastroesophageal reflux disease) K21.9 Diabetes type 2, controlled E11.9 Secondary adrenal insufficiency E27.49
== END 2025-08-11 15:34 | disposition home or self-care (01) | DRG 543 ==
LOC: SUATTDRO → ED 10:16 → SUATTDRO 15:13 → 3E 15:13